=== PATIENT | male | born 1945 | race Caucasian/White ===

== ENCOUNTER → 2018-12-19 09:10 | Outpatient (CLI) | payer MEDICARE, OTHER, SELFPAY ==
--- NOTE | 2018-12-19 10:31 | PM.TREADMILL ---
Cardiac Stress Test Report Referral & Results Date Patient Seen: 12/19/18 Time Patient Seen: 10:31 Requesting provider: Cam Lechuga Indication: Atypical chest pain Rest ECG: Unremarkable Procedure Note: Today following both written and verbal informed consent, the patient was exercised according to a standard Carlos protocol. The patient exercised for a total of 10 minutes 4 seconds achieving a maximum heart rate of 156. Patient's maximum systolic blood pressure was 180. This was an estimated 12.8 MET's. There are no ST-T segment changes identified Occasional PAC and PVC were identified Functional week impairment is way off the scale I estimate at least-50% on the active scale or at least a exercise capacity equal to that of an active 53-year-old. Patient could continue on the treadmill for longer but it was obvious he met his targets and was well beyond norms. Impression: No evidence of ischemia. Amazing exercise capacity Occasional dysrhythmias above Please note: Actual ECG tracings can be found in the PACS system.
== END ==
PROVIDERS: Visit Provider Internal Medicine
DX: R07.89 Other chest pain (principal)
CPT/HCPCS: 93016; 93017; 93018

== ENCOUNTER → 2019-12-08 07:10 | Outpatient (CLI) | payer MEDICARE, OTHER, SELFPAY ==
[2019-12-08 08:26] LABS: Alanine Aminotransferase 32 IU/L (<50); Albumin 4.3 g/dL (3.5-5.0); Albumin Globulin Ratio 1.6 (1.0-2.8); Alkaline Phosphatase 87 U/L (38-126); Aspartate Aminotransferase 40 IU/L (17-59); Bilirubin Total 0.8 mg/dL (0.2-1.3); Blood Urea Nitrogen 18 mg/dL (9-20); Calcium 9.5 mg/dL (8.4-10.2); Carbon Dioxide 28 mmol/L (22-32); Chloride 104 mmol/L (98-107); Cholesterol 216 mg/dL (140-199); Estimated Glomerular Filt Rate > 60.0 mL/min (>60); Globulin 2.7 g/dL (1.7-4.1); Glucose 118 mg/dL (80-110); HDL Cholesterol 48 mg/dL (40-60); HEMOLYSIS < 15 (0-50); LDL Cholesterol Calculated 122 mg/dL (<100); Potassium 4.3 mmol/L (3.4-5.1); Sodium 138 mmol/L (137-145); Triglycerides 231 mg/dL (35-150)
== END ==
PROVIDERS: Referring Provider Internal Medicine; Visit Provider Internal Medicine
DX: E78.5 Hyperlipidemia, unspecified (principal)
CPT/HCPCS: 36415; 80053; 80061

== ENCOUNTER → 2021-03-09 11:04 | Outpatient (CLI) | payer MEDICARE, OTHER, SELFPAY | PROVIDERS: PCP Family Medicine; Referring Provider Family Medicine; Visit Provider Family Medicine | DX: N40.0 Benign prostatic hyperplasia without lower urinary tract symptoms (principal); Z12.5 Encounter for screening for malignant neoplasm of prostate | CPT/HCPCS: 36415; G0103 ==

== ENCOUNTER → 2021-08-28 10:16 | Outpatient (CLI) | payer MEDICARE, OTHER, SELFPAY ==
[2021-08-28 13:46] LABS: COVID19 -Nasal RAPID Negative (Negative)
== END ==
PROVIDERS: PCP Family Medicine; Visit Provider Surgery
DX: Z01.812 Encounter for preprocedural laboratory examination (principal); Z20.822 Contact with and (suspected) exposure to COVID-19
CPT/HCPCS: 87635; C9803

== ENCOUNTER 2021-08-29 09:41 | Day surgery (SDC) | payer MEDICARE, OTHER, SELFPAY ==
[2021-08-29] VITALS (7 sets, daily range): BP systolic 102–138; BP diastolic 63–80; PULSE 59–90; RESP 12–16; TEMP 36.6–36.9; O2SAT 94–97; BMI 28.5
[2021-08-29] MEDS: LACTATED RINGERS 1,000 ML 200 ML IV (09:59)
--- NOTE | 2021-08-29 10:37 | PM.PREOP ---
Pre-operative Note Interval Note History & Physical reviewed/Exam performed by Physician: Yes Changes to H&P: No
[2021-08-29] MEDS: fentaNYL 250 MCG/5 ML INJ 150 MCG IV (10:50)
[2021-08-29] MEDS: MIDAZOLAM 5 MG/5 ML VIAL IV (10:50)
--- NOTE | 2021-08-29 11:09 | PM.OP.COLON ---
Operative Date/Time/Diagnoses Date of procedure: 08/29/21 Time of procedure: 11:09 Pre-op diagnosis: Rectal bleeding Post-op diagnosis: same Procedure & Clinicians Study performed: Colonoscopy Same procedure as scheduled: Yes Indications: Rectal bleeding Surgeon: Brian John Procedure Notes Procedure in detail: Medications: Conscious sedation using 5mg IV midazolam and 150mcg IV of fentanyl The history and physical was performed/updated and the patient is ASA class is 2. The procedure was discussed in detail with the patient. Potential risks complications including infection, bleeding, missed diagnosis, perforation, need for surgery, and were explained. Their questions were answered and informed consent was obtained. Patient was brought to the procedure room and placed standard monitoring equipment. The patient's vital signs were monitored continuously throughout the entire procedure. Prior to starting time-out was performed. The patient was placed in the left lateral recumbent position. Procedural sedation was administered. Examination began with a thorough inspection of the perianal area there was no evidence of fissures, fistulae, external hemorrhoids or cutaneous malignancy. The colonoscopy scope was then placed into the anal canal and was advanced to the cecum, which was identified by the ileocecal valve, the appendiceal orifice and the confluence of the taenia. The scope was then slowly withdrawn examining colon thoroughly in all directions, irrigating it of any residual stool. FINDINGS 1. No masses or polyps 2. Sigmoid diverticulosis 3. Grade 1 internal hemorrhoids no active bleeding. No banding required The patient tolerated the procedure well. They will be discharged once criteria are met. The prep was of good/excellent quality. The withdrawl time was 6minutes. The sedation time was 16 minutes. Specimen(s): none sent Complications: none Post-procedure Recommendations: High fiber diet Disposition: same day surgery
--- NOTE | 2021-08-29 13:46 | SUR.PHASEII ---
Pt was done at 1225 but unable to get a hold of ride home. Called multiple times . Pt dressed and ready to go home VSS at 1225.
== END 2021-08-29 13:25 | disposition home or self-care (01) ==
PROVIDERS: PCP Family Medicine; Referring Provider Surgery; Visit Provider Surgery
PROC: 0DJD8ZZ Inspection of Lower Intestinal Tract, Via Natural or Artificial Opening Endoscopic (ICD-10-PCS; CPT 45378; principal; 2021-08-29 10:45)
DX: K64.0 First degree hemorrhoids (principal); K57.30 Diverticulosis of large intestine without perforation or abscess without bleeding
CPT/HCPCS: 45378; 99152; J2250; J3010

== ENCOUNTER → 2021-11-20 07:16 | Outpatient (CLI) | payer MEDICARE, OTHER, SELFPAY ==
[2021-11-20 08:29] LABS: Add Manual Diff / Slide Review NO; Basophils Absolute Auto 0 /uL (0-100); Basophils Percent Auto 0.7 % (0-2); Eosinophils Absolute Auto 300 /uL (0-450); Eosinophils Percent Auto 5.2 % (2-4); Hematocrit 44.6 % (41-53); Hemoglobin 15.4 g/dL (13.5-17.5); Lymphocytes Absolute Auto 1600 /uL (1100-4500); Lymphocytes Percent Auto 31.5 % (25-40); Mean Corpuscular HGB Conc 34.5 % (30-36); Mean Corpuscular Hemoglobin 31.4 PG (26-34); Monocytes Absolute Auto 500 /uL (0-900); Monocytes Percent Auto 9.8 % (3-14); Neutrophils Absolute Auto 2700 /uL (1500-7000); Neutrophils Percent Auto 52.8 % (50-75); Platelet Count 191 X10^3/uL (150-400); Red Cell Distribution Width 12.8 % (11.6-14.8); White Blood Cell Count 5.1 X10^3/uL (4.5-11.0)
[2021-11-20 10:08] LABS: Alanine Aminotransferase 33 IU/L (<50); Albumin 4.1 g/dL (3.5-5.0); Albumin Globulin Ratio 1.5 (1.0-2.8); Alkaline Phosphatase 88 U/L (38-126); Aspartate Aminotransferase 41 IU/L (17-59); BUN Creatinine Ratio 23.3 (6-22); Bilirubin Total 0.7 mg/dL (0.2-1.3); Blood Urea Nitrogen 21 mg/dL (9-20); Calcium 9.4 mg/dL (8.4-10.2); Carbon Dioxide 32 mmol/L (22-32); Chloride 103 mmol/L (98-107); Cholesterol 204 mg/dL (140-199); Estimated Glomerular Filt Rate > 60 mL/min (>60); Globulin 2.7 g/dL (1.7-4.1); Glucose 114 mg/dL (80-110); HDL Cholesterol 57 mg/dL (40-60); HEMOLYSIS < 15 (0-50); LDL Cholesterol Calculated 108 mg/dL (<100); Potassium 4.5 mmol/L (3.4-5.1); Sodium 138 mmol/L (137-145); Total Protein 6.8 g/dL (6.3-8.2); Triglycerides 196 mg/dL (35-150)
[2021-11-20 10:39] LABS: Prostate Specific Antigen Scrn 1.83 ng/mL (0.1-4.0)
== END ==
PROVIDERS: PCP Family Medicine; Referring Provider Family Medicine; Visit Provider Family Medicine
DX: K63.5 Polyp of colon (principal); Z00.00 Encounter for general adult medical examination without abnormal findings; Z12.5 Encounter for screening for malignant neoplasm of prostate; K64.8 Other hemorrhoids
CPT/HCPCS: 36415; 80053; 80061; 85025; G0103

== ENCOUNTER → 2022-03-13 09:10 | Outpatient (CLI) | payer MEDICARE, OTHER, SELFPAY ==
[2022-03-13 10:49] LABS: C-Reactive Protein Quant 0.5 mg/dL (<1.0)
== END ==
PROVIDERS: PCP Family Medicine; Referring Provider Family Medicine; Visit Provider Family Medicine
DX: G51.9 Disorder of facial nerve, unspecified (principal); Z13.29 Encounter for screening for other suspected endocrine disorder
CPT/HCPCS: 36415; 84443; 86140

== ENCOUNTER → 2023-07-09 09:11 | Outpatient (CLI) | payer MEDICARE, OTHER, SELFPAY ==
[2023-07-09 10:35] LABS: Appearance Urine UA CLEAR; Bilirubin Urine UA NEGATIVE (NEGATIVE); Color Urine UA YELLOW; Glucose Urine UA NEGATIVE (Negative); Ketones Urine UA NEGATIVE (NEGATIVE); Leukocyte Esterase Urine UA NEGATIVE (NEGATIVE); Nitrite Urine UA NEGATIVE (Negative); Occult Blood Urine UA 1+ (Negative); Protein Urine UA NEGATIVE (Negative); Urobilinogen Urine UA 0.2 E.U./dL (0.2)
[2023-07-09 10:59] LABS: RBC Urine 30-100/HPF (0-5/HPF); Urine Volume 10mL (spun); WBC Urine 0-1/HPF (0-5/HPF)
[2023-07-09 11:00] LABS: Bacteria Urine None Seen; Culture Indicated Urine Cult Not Indicated; Squamous Epithelial Cell Urine 0-1 /HPF (0-5/HPF)
[2023-07-09 11:13] LABS: Alanine Aminotransferase 40 IU/L (<50); Albumin 4.2 g/dL (3.5-5.0); Albumin Globulin Ratio 1.3 (1.0-2.8); Alkaline Phosphatase 95 U/L (38-126); Aspartate Aminotransferase 38 IU/L (17-59); Bilirubin Total 0.9 mg/dL (0.2-1.3); Blood Urea Nitrogen 17 mg/dL (9-20); Calcium 9.3 mg/dL (8.4-10.2); Carbon Dioxide 30 mmol/L (22-32); Chloride 104 mmol/L (98-107); Estimated Glomerular Filt Rate > 60 mL/min (>60); Globulin 3.3 g/dL (1.7-4.1); Glucose 129 mg/dL (80-110); HEMOLYSIS 20 (0-50); Potassium 4.4 mmol/L (3.4-5.1); Sodium 138 mmol/L (137-145); Total Protein 7.5 g/dL (6.3-8.2)
[2023-07-09 11:59] LABS: Prostate Specific Antigen Scrn 2.54 ng/mL (0.1-4.0)
== END ==
PROVIDERS: PCP Family Medicine; Referring Provider Family Medicine; Visit Provider Family Medicine
DX: Z12.5 Encounter for screening for malignant neoplasm of prostate (principal); R73.9 Hyperglycemia, unspecified; N40.0 Benign prostatic hyperplasia without lower urinary tract symptoms; N39.0 Urinary tract infection, site not specified
CPT/HCPCS: 36415; 80053; 81001; G0103

== ENCOUNTER → 2023-08-08 11:04 | Outpatient (CLI) | payer MEDICARE, OTHER, SELFPAY | PROVIDERS: PCP Family Medicine; Visit Provider Specialist | DX: N40.1 Benign prostatic hyperplasia with lower urinary tract symptoms (principal); R33.9 Retention of urine, unspecified | CPT/HCPCS: 51798; 81002; 87086 ==

== ENCOUNTER → 2023-08-21 07:29 | Outpatient (CLI) | payer MEDICARE, OTHER, SELFPAY ==
[2023-08-21 09:11] LABS: Prostate Specific Antigen 1.67 ng/mL (0.10-4.00)
== END ==
PROVIDERS: PCP Family Medicine; Referring Provider Specialist; Visit Provider Specialist
DX: N40.1 Benign prostatic hyperplasia with lower urinary tract symptoms (principal); R33.9 Retention of urine, unspecified; N40.0 Benign prostatic hyperplasia without lower urinary tract symptoms
CPT/HCPCS: 36415; 84153

== ENCOUNTER 2023-10-06 03:05 | Emergency (ER) | payer MEDICARE, OTHER, SELFPAY ==
[2023-10-06 03:15] VITALS: BP 163/76; PULSE 55; RESP 16; O2SAT 98; BMI 27.6
--- NOTE | 2023-10-06 03:15 | ED.GENADULT ---
HPI - General Adult General Chief complaint: Abdominal Pain Stated complaint: abdominal pain Time Seen by Provider: 10/06/23 03:08 Source: patient Mode of arrival: Ambulatory Limitations: no limitations History of Present Illness HPI narrative: 78-year-old male who has known history of prostate issues. Has had kidney stones in the past. Is here for evaluation of fairly sudden onset of lower abdominal discomfort. Is also complaining of some low back discomfort. It is hard for the patient to complete describe the symptoms. He states it is not necessarily worse with palpation or movement but position seems to make the symptoms better. Does not completely feel like prior history of stones. He does self cath because of enlarged prostate. Has a follow-up with his urologist 24 hours from now to have an operation for his prostate. Denies any fevers. Also gave himself an enema without any improvement or symptoms or bowel movement. Related Data Home Medications Medication Instructions Recorded Confirmed lactobacillus combination no.9 1 cap PO DAILY 05/13/20 10/03/23 [Adult 50 Plus Probiotic] zoipbhkz-tup-sdsav-vit K-lycop 1 tab PO DAILY 05/13/20 10/03/23 [Men's 50 Plus Multivitamin] cholecalciferol (vitamin D3) 1,000 tab PO .QD 08/15/20 10/03/23 krill oil 750 cap PO .QD 08/15/20 10/03/23 Previous Rx's Medication Instructions Recorded tamsulosin 0.4 mg capsule 0.8 mg (2 x 0.4 mg) PO DAILY #180 03/01/23 caps finasteride 5 mg tablet 5 mg PO DAILY #90 tabs 07/09/23 Allergies Allergy/AdvReac Type Severity Reaction Status Date / Time No Known Drug Allergies Allergy Verified 07/09/23 08:36 Review of Systems Review of Systems Narrative: See HPI Patient History Medical History BPH loc w urin obs/LUTS Urinary retention Medicare annual wellness visit, subsequent Travel advice encounter Well adult exam Kidney stones Internal hemorrhoids Preventative health care Hyperglycemia Preventative health care BPH (benign prostatic hyperplasia) Colon polyps (~2006) Skin cancer (~2008) Surgical History Anesthesia History of hernia repair (~2011) Social History (Reviewed 10/06/23 @ 05:52 by PRATIMA Patel marital status: number of children: 2 household members: spouse Smoking Status: Never smoker alcohol intake: former substance use type: does not use caffeine: Yes Type(s) of exercise: walking and other Smoking Status: Never smoker alcohol intake frequency: holidays/special occasions only Substance Use Type: does not use Exam Initial Vital Signs Initial Vital Signs: Vital Signs Pulse Rate 55 L 10/06/23 03:15 Respiratory Rate 16 10/06/23 03:15 Blood Pressure 163/76 H 10/06/23 03:15 Pulse Oximetry 98 10/06/23 03:15 Oxygen Delivery Method Room Air 10/06/23 03:15 Const General: cooperative, comfortable and No ill appearing HENMT Head: normal to inspection and normocephalic Resp Effort & Inspection: normal respiratory effort Cardio Rate: regular rate GI Inspection: normal to inspection and non-distended Palpation: soft, No firm, No guarding and No tender Back/Spine/Pelvis Back: No CVA tenderness Skin General: no rashes or lesions noted Neuro General: patient alert, patient awake, patient oriented x3 and moves all extremities Course Orders Ordered: ED Orders 10/06/23 03:00 Complete Blood Count AUTO DIFF Stat Comprehensive Metabolic Panel Stat Lipase Stat 10/06/23 03:19 CT abdomen pelvis w con Stat 10/06/23 06:37 Urine Culture Stat Urine Microscopic Stat Discontinued Medications Ketorolac Tromethamine (Ketorolac 30 Mg/Ml Vial) 30 mg IV NOW ONE Stop: 10/06/23 03:46 Last Admin: 10/06/23 03:55 Dose: 30 mg Documented By: NINA Ondansetron HCl (Ondansetron 4 Mg/2 Ml Inj) 4 mg IV NOW ONE Stop: 10/06/23 03:46 Last Admin: 10/06/23 03:54 Dose: 4 mg Documented By: NINA Vital Signs Vital signs: Vital Signs - 8 hr 10/06/23 03:15 Pulse Rate 55 L Respiratory Rate 16 Blood Pressure 163/76 H Pulse Oximetry 98 Oxygen Delivery Method Room Air Medical Decision Making Lab Data Lab results reviewed: Yes I reviewed the patient's lab results. 10/06/23 03:00 10/06/23 03:00 Labs: Lab Results 10/06/23 Range/Units 03:00 WBC 6.9 (4.5-11.0) X10^3/uL RBC 4.92 (4.5-5.9) X10^6/uL Hgb 15.2 (13.5-17.5) g/dL Hct 44.4 (41-53) % MCV 90.3 (80-100) fL MCH 31.0 (26-34) PG MCHC 34.3 (30-36) % RDW 13.0 (11.6-14.8) % Plt Count 199 (150-400) X10^3/uL Neut % (Auto) 51.5 (50-75) % Lymph % (Auto) 37.4 (25-40) % [place] % (Auto) 8.8 (3-14) % Eos % (Auto) 2.3 (2-4) % Baso % (Auto) 0.0 (0-2) % Neut # (Auto) 3500 (6666-3972) /uL Lymph # (Auto) 2600 (7938-9229) /uL [place] # (Auto) 600 (0-900) /uL Eos # (Auto) 200 (0-450) /uL Baso # (Auto) 0 (0-100) /uL Sodium 139 (137-145) mmol/L Potassium 4.2 (3.4-5.1) mmol/L Chloride 104 (98-107) mmol/L Carbon Dioxide 31 (22-32) mmol/L BUN 22 H (9-20) mg/dL Creatinine 0.91 (0.66-1.25) mg/dL Estimated GFR > 60 (>60) mL/min BUN/Creatinine Ratio 24.2 H (6-22) Glucose 166 H (80-110) mg/dL Calcium 9.3 (8.4-10.2) mg/dL Total Bilirubin 0.8 (0.2-1.3) mg/dL AST 32 (17-59) IU/L ALT 24 (<50) IU/L Alkaline Phosphatase 87 (38-126) U/L Total Protein 7.4 (6.3-8.2) g/dL Albumin 4.3 (3.5-5.0) g/dL Globulin 3.1 (1.7-4.1) g/dL Albumin/Globulin Ratio 1.4 (1.0-2.8) Lipase 194 (23-300) U/L Urine Dip Bedside Urine Glucose Negative Bedside Urine Bilirubin - Negative Bedside Urine Ketone - Negative Urine Specific [place] 1.020 Bedside Urine Occult Blood ++ Bedside Urine pH 5.5 Bedside Urine Protein - Negative Bedside Urine Urobilinogen - Negative Bedside Urine Nitrite + Positive Bedside Urine Leukocytes + 70 Esterase Point of care testing: Urine Dip Bedside Urine Glucose Negative Bedside Urine Bilirubin - Negative Bedside Urine Ketone - Negative Urine Specific [place] 1.020 Bedside Urine Occult Blood ++ Bedside Urine pH 5.5 Bedside Urine Protein - Negative Bedside Urine Urobilinogen - Negative Bedside Urine Nitrite + Positive Bedside Urine Leukocytes + [address] scan - abdomen/pelvis: Radiologist's Impression: Right kidney: 3 renal stones, 1 in the proximal aspect of the right UVJ in 2 other either in the distal most right UVJ or right posterior lateral aspect of the urinary bladder measuring up to 7 mm cause mild upstream hydronephrosis and minimal hydroureter. Left kidney: 7 mm stone either within the distal most aspect of the left UVJ with a left posterolateral urinary bladder causes [id number] upstream hydronephrosis and moderate hydroureter. There was associated decreased enhancement of the left relative to the right kidney and mild to moderate perinephric edema MDM Narrative Medical decision making narrative: After presentation highly suspicious of kidney stone. CT scan does show bilateral rather large kidney stones with hydro however his kidney function is unremarkable. He does self cath. He does have bacteria and red cells in his urinalysis but no other signs of an infection. He is now completely asymptomatic. He stated that when he was coming back from the CT scan his symptoms were greatly improved. Unsure whether or not that was the Toradol or potentially he has pass the stones into the bladder. He has an appointment tomorrow morning at 0900 hours with Urology in order to have resection of his prostate. I asked him to talk with the urologist and ask him to look at the CT scans that were performed today. Patient was given return precautions. He expressed understanding and agreement with plan. Discharge Plan Departure Patient Disposition: Home Clinical Impression: Bilateral ureteral calculi Instructions: DI for Kidney Stones Activity Restrictions/Additional Instructions: Recommend that you continue all of your medications as directed. Keep your scheduled appointment tomorrow morning with the urologist. I recommend that you tell him that you were seen here in the emergency department today and have him look at the CT scan that was performed here in the ER. If you start to develop fevers, pain that is not controlled or vomiting please return to the emergency department for further evaluation. Prescriptions: No Action krill oil 750 cap PO .QD Rx Instructions: 750mg po QD cholecalciferol (vitamin D3) 1,000 tab PO .QD Rx Instructions: 1,000 IU po QD tamsulosin 0.4 mg capsule 0.8 mg PO DAILY Qty: 180 3RF finasteride 5 mg tablet 5 mg PO DAILY Qty: 90 3RF kyolpnuk-lmc-bzcck-vit K-lycop 1 tab PO DAILY lactobacillus combination no.9 1 cap PO DAILY Referrals: Samuel Valdez DO [Primary Care Provider] - Stand Alone Forms: Patient Portal/API
--- NOTE | 2023-10-06 03:19 | DI.CT.S_ITS ---
PROCEDURE: CT ABDOMEN PELVIS W CON INDICATIONS: lower abd pain L flank pain TECHNIQUE: After the administration of intravenous contrast, axial sections acquired from the lung bases to the pubic symphysis. Coronal and sagittal reformats were performed. For radiation dose reduction, the following was used: automated exposure control, adjustment of mA and/or kV according to patient size. COMPARISON: None. FINDINGS: Image quality: Diagnostic. Lower Chest: No significant findings. ABDOMEN: Liver: No solid mass. Gallbladder: Cholelithiasis without evidence of acute cholecystitis Biliary ducts: No biliary dilation. Pancreas: No ductal dilation. Spleen: Size is within normal limits. Adrenal Glands: No adrenal nodules. Kidneys and Ureters: Numerous bilateral renal stones largest measuring 1.8 centimeters with average density of 1500 Hounsfield units. There is left-sided caliectasis and pelviectasis. There is left greater than right hydronephrosis. There is a 8 millimeter stone at the ureterovesicular junction. There is a 8 millimeter distal ureteral stone. There are several small 2-3 millimeter stones within the bladder. Left perinephric fat stranding. Stomach and Bowel: Normal colonic caliber, without significant wall thickening. Diverticulosis without evidence of acute diverticulitis. Normal appendix Peritoneum: No abnormal intraperitoneal fluid. No free air. Ventral Wall: No significant ventral hernia. Abdominal Nodes: No retroperitoneal or mesenteric adenopathy by size criteria. Vessels: Aorta and inferior vena cava are normal in size. PELVIS: Pelvic Organs: Slightly nodular prostate Bladder: No bladder wall thickening, accounting for underdistention. Pelvic Nodes: No enlarged lymph nodes. Miscellaneous: No inguinal hernias are seen. Bones: No aggressive osseous abnormality. IMPRESSION: Bilateral distal ureteral stones with hydronephrosis. Inflammatory changes with caliectasis of the left kidney concerning for complete obstruction. Additional stones within the bladder Numerous stones within the kidneys. Cholelithiasis without evidence of acute cholecystitis. Diverticulosis without evidence of acute diverticulitis. Dictated by: Cam Rossi M.D. on 10/06/2023 at 8:36 Approved by: Cam Rossi M.D. on 10/06/2023 at 8:42
[2023-10-06 03:23] LABS: Add Manual Diff / Slide Review NO; Basophils Absolute Auto 0 /uL (0-100); Eosinophils Absolute Auto 200 /uL (0-450); Eosinophils Percent Auto 2.3 % (2-4); Hematocrit 44.4 % (41-53); Hemoglobin 15.2 g/dL (13.5-17.5); Lymphocytes Absolute Auto 2600 /uL (1100-4500); Lymphocytes Percent Auto 37.4 % (25-40); Mean Corpuscular HGB Conc 34.3 % (30-36); Mean Corpuscular Volume 90.3 fL (80-100); Monocytes Absolute Auto 600 /uL (0-900); Monocytes Percent Auto 8.8 % (3-14); Neutrophils Absolute Auto 3500 /uL (1500-7000); Neutrophils Percent Auto 51.5 % (50-75); Platelet Count 199 X10^3/uL (150-400); Red Blood Cell Count 4.92 X10^6/uL (4.5-5.9); White Blood Cell Count 6.9 X10^3/uL (4.5-11.0)
[2023-10-06 03:37] LABS: Alanine Aminotransferase 24 IU/L (<50); Albumin 4.3 g/dL (3.5-5.0); Albumin Globulin Ratio 1.4 (1.0-2.8); Alkaline Phosphatase 87 U/L (38-126); Aspartate Aminotransferase 32 IU/L (17-59); BUN Creatinine Ratio 24.2 (6-22); Bilirubin Total 0.8 mg/dL (0.2-1.3); Blood Urea Nitrogen 22 mg/dL (9-20); Calcium 9.3 mg/dL (8.4-10.2); Carbon Dioxide 31 mmol/L (22-32); Chloride 104 mmol/L (98-107); Estimated Glomerular Filt Rate > 60 mL/min (>60); Globulin 3.1 g/dL (1.7-4.1); Glucose 166 mg/dL (80-110); HEMOLYSIS < 15 (0-50); Lipase 194 U/L (23-300); Potassium 4.2 mmol/L (3.4-5.1); Sodium 139 mmol/L (137-145); Total Protein 7.4 g/dL (6.3-8.2)
[2023-10-06] MEDS: ONDANSETRON 4 MG/2 ML INJ IV (03:54)
[2023-10-06] MEDS: KETOROLAC 30 MG/ML VIAL IV (03:55)
--- NOTE | 2023-10-06 06:32 | PC.NURSE ---
Pt able to straight cath himself for a urine sample. 300mL out.
[2023-10-06 06:54] VITALS: BP 136/71; PULSE 74; RESP 16; TEMP 37.1; O2SAT 95
[2023-10-06 06:56] LABS: Urine Volume 10mL (spun)
[2023-10-06 06:57] LABS: Bacteria Urine Moderate (10-30); Culture Indicated Urine Cult Not Indicated; RBC Urine 0-1/HPF (0-5/HPF); Squamous Epithelial Cell Urine 0-1 /HPF (0-5/HPF); WBC Urine 1-5/HPF (0-5/HPF)
== END 2023-10-06 06:57 | disposition home or self-care (01) ==
PROVIDERS: Emergency Provider Emergency Medicine; PCP Family Medicine
DX: N20.0 Calculus of kidney (principal); Z87.442 Personal history of urinary calculi
CPT/HCPCS: 36415; 51798; 74177; 80053; 81003; 81015; 83690; 85025; 87077; 87086; 87186; 96374; 96375; 99284; J1885; J2405; Q9967

== ENCOUNTER 2023-10-07 08:53 | Day surgery (SDC) | payer MEDICARE, OTHER, SELFPAY ==
[2023-09-03 08:07] VITALS: BMI 27.6
[2023-10-07] VITALS (13 sets, daily range): BP systolic 90–117; BP diastolic 44–63; PULSE 65–81; RESP 6–17; TEMP 36.8–37.9; O2SAT 92–97; BMI 27.6
--- NOTE | 2023-10-07 | PATH_ITS ---
[facility] Accession Number: [id number] No. of containers..01 Tissue . 01 Material submitted: . prostate - PROSTATE CHIPS . 01 Diagnosis: A. PROSTATE CHIPS, EXCISIONAL BIOPSY: Benign prostatic stroma with benign epithelium and mild acute inflammation. Background of blood with scattered clusters of bacterial colonization in association with fibrin. MRV 10/14/2023 1316 Local . 01 Electronically signed: . Carlee Croft MD, Pathologist NPI- [id number] . 01 Gross description: . Received in formalin with two identifiers and prostate chips, are multiple ochoa rubbery tissue fragments admixed with hemorrhagic material aggregating to 2.9 x 2.7 x 1.3 cm. Two ochoa roughened stones are identified ranging from 0.5 to 0.7 cm in greatest dimension. All soft tissue fragments and hemorrhagic material are submitted in A1-A2. ([id number]) /MRV 10/09/2023 1834 Local . 01 Pathologist provided ICD-10: N40.1 . 01 CPT . 420273 Specimen Comment: A courtesy copy of this report has been sent to [phone] Performed at: [address] [facility] [place] [facility]– [place], [place], [place] [id number] MD Adal Arredondo MD Phone: [phone]
[2023-10-07] MEDS: LACTATED RINGERS 1,000 ML 21 ML IV ×2 (09:31→13:20)
[2023-10-07] MEDS: ACETAMINOPHEN IV 1,000 MG/100 ML VIAL 400 MG IV ×2 (09:33→10:38)
[2023-10-07 09:34] LABS: Hemoglobin 14.6 g/dL (13.5-17.5)
--- NOTE | 2023-10-07 09:42 | P.OP.PRE_ITS ---
Pre-operative Note Interval Note History & Physical reviewed/Exam performed by Physician: Yes Changes to H&P: Yes H&P completed within 30 days and has changed as indicated here:: The patient presented to [facility] ED 10/06/2023 for evaluation and management of symptomatic left ureteral calculus. He was discharged. Denies ongoing colic.
[2023-10-07] MEDS: AMPICILLIN/SULBACTAM 3 GM 3 GM in SODIUM CHLORIDE 0.9% 100 ML IV (10:23)
[2023-10-07] MEDS: CEFAZOLIN 2 GM/100 ML PREMIX 100 ML IV (10:25)
[2023-10-07] MEDS: GENTAMICIN IV (10:30)
[2023-10-07] MEDS: SODIUM CHLORIDE 0.9% IV (10:30)
--- NOTE | 2023-10-07 11:04 | SUR.OPER ---
Lithotomy on padded OR bed, head on pillow, right arm secured on padded arm board at <90 degrees abduction, left arm padded and tucked in. Legs secured in padded yellow fins stirrups.
[2023-10-07] MEDS: TRANEXAMIC ACID 1,000 MG in SODIUM CHLORIDE 0.9% 100 ML 200 MG IV ×2 (11:17→11:45)
--- NOTE | 2023-10-07 12:05 | PM.OP.1 ---
Operative Date/Time/Diagnoses Date of procedure: 10/07/23 Time of procedure: 11:40 Pre-op diagnosis: 1. Urinary retention. 2. 8 mm obstructing left distal ureteral calculus. Post-op diagnosis: same Procedure & Clinicians Procedure: 1. Cystoscopy/left ureteral stone manipulation without removal. 2. Cystoscopy/placement left ureteral stent (7 [place] by 22-32 cm multi-length). 3. Cystoscopy/Aquablation. 4. Cystoscopy/Transurethral resection of prostate. 5. Transrectal ultrasonography-diagnostic and guidance. Same procedure as scheduled: Yes Indications: 1. 8 mm obstructing left distal ureteral calculus. 2. Urinary retention and multiple failed voiding trials. Surgeon: Sherry Marinelli Click Yes if Unassisted: Yes Anesthesia Type: General Operative Notes Findings: 1. Urethra-normal caliber without annular stricture or lesion. 2. External sphincter-coapted normal urothelium and vascularity. 3. Prostate-3.5+ cm length with markedly elevated median bar and moderately obstructing lateral lobe. 4. Bladder-severe trabeculation in some early cellule formation. Right ureteral orifices with normally positioned. The right ureteral orifice was positioned more laterally. There was evidence of edema and erythema consistent with known stone within the distal portion of the ureter. Closure Type: not applicable Specimen(s): other (TUR chips) Applied: catheter (Twenty-two [place] three-way hematuria catheter.) and other (Seven [place] by 22-32 cm multi-length stent.) Estimated Blood Loss (mL): 5 Blood products transfused: none Procedure in detail: The patient was positioned in supine was administered general anesthesia. He was then repositioned in semilithotomy in the lower abdomen, genitalia, groin were then prepped and draped in sterile fashion. The 22 [place] panendoscope was then advanced lower urinary tract with the findings as described above. A 0.35 hybrid guidewire selected and advanced in the left collecting system under direct and fluoroscopic guidance. A 7 [place] by 22-32 cm multilink stent was then selected and this was advanced over the hybrid guidewire again under direct and fluoroscopic guidance. An excellent coil was visualized fluoroscopically in the upper left collecting system. NO RETRIEVAL LINE WAS LEFT ATTACHED. Library guidewire was removed with the distal tip of the stent line just within the proximal prostate fossa. An excellent distal coil was then visualized. The panendoscope was then removed. Next the transrectal ultrasound probe was positioned and adjusted appropriately in preparation for Aquablation treatment planning. Next the cystoscope and hand piece were then passed and lower urinary tract under direct visualization. The tip was calibrated. The scope was aligned parallel and in line with the TRUS probe. Next, alternating between sagittal and transverse imaging nodule calibration and positioning at the 3, and 9 positions in the transverse plane as well as adjusting proximal stent of treatment at the margin of prostate and bladder neck in the sagittal plane. Now in the transverse plane depth of treatment parameters were created by placing cursors appropriately just inside the prostate capsule laterally and posteriorly. Now in the sagittal plane anatomic landmarks were identified in the proximal stent of treatment, the bladder neck, the mid prostate, and veru were then identified and boundary cursors with positioned at these locations. First pass Aquablation was then commenced under ultrasonographic monitoring guidance. Before a 2nd pass was conducted anatomic landmarks were re-evaluated in the sagittal plane and adjustments of the boundaries for made appropriately. A 2nd pass was then conducted. Now, the treatment hand piece was removed and the resectoscope was advanced in lower urinary tract under direct visualization. The bladder contents were then irrigated clear pink the Ellik evacuator. The resectoscope was then fitted with the resecting loop and focal neck bladder cautery and resection of devascularized treated tissue was conducted from the 3 to the 9 position. TUR of this devitalized tissue was extended more proximally and hemostasis attained given the patient's history of jenaro urinary retention. Additionally, a limited amount of anterior tissue was resected to optimize a caliber of the channel, again, given patient's history of jenaro urinary retention. The resectoscope was then advanced within the bladder lumen and again the Ellik evacuator was utilized to remove any residual tissue fragments or clots. A final inspection revealed no evidence of remaining clot, tissue or stone within the bladder lumen. Hemostasis was excellent. The bladder is then left partially filled and the resectoscope was removed. A [address] catheter was then positioned in the bladder over a malleable catheter guide. The balloon was inflated to 30 cc. The catheter was then hand irrigated clear. It was then placed to 0.9 normal saline continuous bladder irrigation. The patient was repositioned in supine and the catheter was secured to the thigh without traction. The patient was then awakened, transferred to [facility], and transferred recovery in stable condition. Complications: none Post-operative Condition: stable Disposition: PACU Plan for aftercare: 1. Observe CBI outflow quality. Disposition will be discharge later this day or admit as outpatient with bed.
[2024-01-01 13:33] VITALS: BMI 27.6
== END 2023-10-07 15:40 | disposition home or self-care (01) ==
LOC: OR 08:53 → AC 08:54
PROVIDERS: PCP Family Medicine; Referring Provider Specialist; Visit Provider Specialist
PROC: 0VT08ZZ Resection of Prostate, Via Natural or Artificial Opening Endoscopic (ICD-10-PCS; CPT 52597; principal; 2023-10-07 10:15)
PROC: (CPT 0421T; 2023-10-07 10:15)
DX: N40.1 Benign prostatic hyperplasia with lower urinary tract symptoms (principal); R33.9 Retention of urine, unspecified; N20.1 Calculus of ureter
CPT/HCPCS: 0421T; 52330; 52332; 36415; 76000; 85014; 85018; 86850; 86900; 86901; C2596; J0136; J0295; J0690; J1100; J1170; J2250; J2405; J2704; J3010; J3490

== ENCOUNTER → 2023-10-13 10:45 | Outpatient (CLI) | payer MEDICARE, OTHER, SELFPAY ==
--- NOTE | 2023-10-13 10:48 | DI.CT.S_ITS ---
PROCEDURE: CT KIDNEY URETER BLADDER (KUB) INDICATIONS: Bilateral ureteral calculi TECHNIQUE: Axial sections were acquired from the lung bases to the pubic symphysis. Coronal and sagittal reformats were performed. For radiation dose reduction, the following was used: automated exposure control, adjustment of mA and/or kV according to patient size. COMPARISON: [facility], CT, CT ABDOMEN PELVIS W CON, 10/06/2023, 3:30. FINDINGS: Image quality: Diagnostic. Lower Chest: No significant findings. URINARY: Right Kidney: No hydronephrosis. Right interpolar nonobstructive nephrolith measuring 9 mm (2/38). Two right lower pole nonobstructive nephroliths, the largest of which measures 7 mm (2/44). Right posterior interpolar simple cyst. Additional anterior interpolar simple cyst. Right Ureter: Distal hydroureter. Left Kidney: Interval placement of a left double-J ureteral stent with proximal pigtail in the interpolar calyx. Multiple nonobstructive nephroliths, the largest of which in the lower pole measures 18 x 15 mm with Hounsfield unit 1491. Additional cluster of interpolar nephroliths, the largest of which measures 6 mm (2/41). Multiple anechoic simple cysts. Left Ureter: Distal pigtail of the ureteral stent is malpositioned in the distal ureter. Distal hydroureter with a nonobstructive nephrolith measuring 3 mm (2/78). Bladder: Mild bladder wall thickness, accounting for underdistention. No stones. ABDOMEN: Liver: No contour-deforming solid mass. Gallbladder: Cholelithiasis without acute cholecystitis. Biliary ducts: No biliary dilation. Pancreas: No ductal dilation. Spleen: Size is within normal limits. Adrenal Glands: No adrenal nodules. Stomach and Bowel: Normal colonic caliber, without significant wall thickening. Normal appendix (2/58). Colonic diverticulosis, without diverticulitis. Peritoneum: No abnormal intraperitoneal fluid. No free air. Ventral Wall: Tiny fat containing umbilical hernia. Abdominal Nodes: No enlarged retroperitoneal or mesenteric lymph nodes. Vessels: Aorta and inferior vena cava are normal in size. PELVIS: Pelvic Organs: Dystrophic calcifications. Pelvic Nodes: No enlarged lymph nodes by size criteria. A few prominent, but not enlarged, bilateral inguinal lymph nodes which are nonspecific and likely reactive.. Miscellaneous: No inguinal hernias are seen. Bones: No acute fractures. No aggressive appearing lytic or blastic osseous lesions. Mild multilevel degenerative changes of the spine. IMPRESSION: 1. Interval placement of a left double-J ureteral stent which is malpositioned with distal pigtail in the distal ureter. Left-sided hydronephrosis has resolved. 2. Multiple bilateral nonobstructive nephroliths, the largest of which measures 9 mm on the right and 18 x 15 mm on the left. 3. Bilateral distal hydroureter with a nonobstructive nephrolith in the left distal ureter measuring 3 mm. Previously seen right ureteral stones are no longer seen. 4. No bladder stones. Mild bladder wall thickness, accounting for underdistention, which may reflect of infectious or inflammatory etiology. 5. Colonic diverticulosis, without diverticulitis. 6. Cholelithiasis without acute cholecystitis. Dictated by: Minesh Us M.D. on 10/13/2023 at 19:31 Approved by: Minesh Us M.D. on 10/13/2023 at 19:57
== END ==
LOC: CT 10:47
PROVIDERS: PCP Family Medicine; Referring Provider Specialist; Visit Provider Specialist
DX: T83.122A Displacement of indwelling ureteral stent, initial encounter (principal); N20.0 Calculus of kidney; N28.1 Cyst of kidney, acquired; K80.20 Calculus of gallbladder without cholecystitis without obstruction; K57.90 Diverticulosis of intestine, part unspecified, without perforation or abscess without bleeding; N13.4 Hydroureter
CPT/HCPCS: 74176

== ENCOUNTER → 2023-10-23 08:55 | Outpatient (CLI) | payer MEDICARE, OTHER, SELFPAY ==
[2023-10-23 09:36] LABS: Appearance Urine UA CLOUDY; Bacteria Urine Few (2-10); Color Urine UA RED; RBC Urine >100/HPF (0-5/HPF); Urine Volume 10mL (spun); WBC Urine 5-10/HPF (0-5/HPF)
[2023-10-23 09:37] LABS: Culture Indicated Urine Specimen Cultured; Squamous Epithelial Cell Urine 1-5 /HPF (0-5/HPF)
== END ==
PROVIDERS: PCP Family Medicine; Visit Provider Specialist
DX: N40.1 Benign prostatic hyperplasia with lower urinary tract symptoms (principal); N20.0 Calculus of kidney; R33.9 Retention of urine, unspecified; Z96.0 Presence of urogenital implants
CPT/HCPCS: 81001; 87077; 87086; 99215

== ENCOUNTER → 2023-11-20 08:33 | Outpatient (CLI) | payer MEDICARE, OTHER, SELFPAY | PROVIDERS: PCP Family Medicine; Visit Provider Specialist | DX: N40.1 Benign prostatic hyperplasia with lower urinary tract symptoms (principal); R39.9 Unspecified symptoms and signs involving the genitourinary system; N20.0 Calculus of kidney; Z96.0 Presence of urogenital implants | CPT/HCPCS: 51798; 81002; 87077; 87086; 87186; 99214 ==

== ENCOUNTER → 2023-12-10 13:46 | Outpatient (CLI) | payer MEDICARE, OTHER, SELFPAY | PROVIDERS: PCP Family Medicine; Visit Provider Urology | DX: N40.1 Benign prostatic hyperplasia with lower urinary tract symptoms (principal) | CPT/HCPCS: 87086 ==

== ENCOUNTER 2024-01-03 06:42 | Day surgery (SDC) | payer MEDICARE, OTHER, SELFPAY ==
--- NOTE | 2024-01-03 | DI.RAD.S_ITS ---
PROCEDURE: XR ABDOMEN 1V INDICATIONS: LT STENT PLACEMENT TECHNIQUE: 3 intra-operative images acquired by the Urology service. COMPARISON: None. FINDINGS: Intraoperative fluoroscopic images shows prominence of left renal collecting system and left proximal to mid ureters. A left-sided ureteral stent is placed. IMPRESSION: Fluoro guidance was provided intraoperatively for left-sided ureteral stent placement. Dictated by: Dickson Hartley M.D. on 01/03/2024 at 11:26 Approved by: Dickson Hartley M.D. on 01/03/2024 at 11:27
[2024-01-03 07:18] VITALS: BP 141/73; PULSE 67; RESP 17; TEMP 36.3; O2SAT 95; BMI 26.6
[2024-01-03] MEDS: LACTATED RINGERS 1,000 ML 21 ML IV (07:27)
--- NOTE | 2024-01-03 07:40 | PM.PREOP ---
Pre-operative Note COVID-19 COVID-19 status: Not tested Interval Note History & Physical reviewed/Exam performed by Physician: Yes Changes to H&P: No
[2024-01-03] MEDS: CEFAZOLIN 2 GM/100 ML PREMIX 100 ML IV (08:03)
--- NOTE | 2024-01-03 08:07 | SUR.OPER ---
Lithotomy on padded OR bed, head on pillow, arms secured on padded arm boards at <90 degrees abduction. Legs secured in padded yellow fins stirrups.
[2024-01-03 09:25] VITALS: BP 133/69; PULSE 70; RESP 13; O2SAT 94
[2024-01-03 09:30] VITALS: BP 109/63; PULSE 66; RESP 16; O2SAT 94
[2024-01-03 09:34] VITALS: BP 111/63; PULSE 65; RESP 13; O2SAT 94
[2024-01-03 09:35] VITALS: BP 104/55; PULSE 71; RESP 14; TEMP 36.2; O2SAT 95
--- NOTE | 2024-01-03 09:45 | PM.OP.1 ---
Procedure & Clinicians Procedure: Cystoscopy Left retrograde ureteropyelogram Left ureteroscopy, laser lithotripsy Left ureteral stent exchange Intraoperative interpretation of fluoroscopic images, total time < 1 hour, all images saved to PACS Same procedure as scheduled: Yes Indications: 78 y/o M w/ a large left distal ureteral stone and a large left lower pole calyx s/p a cystoscopy and left ureteral stent placement at the same time as his Aquablation procedure a few months ago who is in need of definitive stone management. 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 Large left distal ureterolith, moderate sized stone in left mid pole calyx, large and impacted stone in left lower pole calyx that occupies the entire calyx. Closure Type: not applicable Specimen(s): other Prosthetic devices, grafts, tissues, transplants, or devices: Left ureteral stone Estimated Blood Loss (mL): 3 Blood products transfused: none Procedure in detail: Patient was identified in the preoperative holding area and consent confirmed. He was then brought to the operating room where general anesthesia was induced.? He was placed in the low lithotomy position. He was then prepped and draped in the usual sterile fashion. A surgical timeout was conducted and all were in agreement. Access to the bladder was obtained via a 30 degree cystoscope.? Complete cystoscopy was then performed and no concerning bladder masses or lesions were appreciated.? A defect within the prostatic urethra consistent with a prior Aquablation procedure was noted. Bilateral ureteral orifices were easily identified and noted to be orthotopic in nature.? The cystoscope was then removed and the semirigid ureteroscope was advanced through the urethra and into the left distal ureter where the previously placed left ureteral stent was noted to have its distal curl within the distal ureter. The stent was then externalized using the stone basket. A 0.035 sensor tip ureteral guidewire was then advanced through the stent and into the left renal pelvis. The semirigid ureteroscope was then readvanced into the left distal ureter where a large stone consistent with CT findings was noted. A 200 micron laser fiber was then utilized to perform laser lithotripsy.? All stone fragments >1mm in size were removed via the stone basket and sent for chemical analysis.? The semirigid ureteroscope was then removed and a 12/14Fr ureteral access sheath was advanced over the guidewire and into the left proximal ureter and the obturator and ureteral guidewire were removed. The flexible ureteroscope was then advanced through the sheath and into the left renal pelvis. Complete pyeloscopy was performed and a moderate sized stone was noted within the left midpole calyx and a large and impacted stone was noted within a left lower pole calyx. The midpole calyx stone was addressed first using laser lithotripsy, all stone fragments > 1mm in greatest diameter were removed via the stone basket. The lower pole stone was then addressed with the laser. After lasering for more than 30 minutes, visibility became poor and the stone was still noted to be rather large and impacted within the left lower pole calyx. The decision was made to terminate the procedure at this point. The ureteral guidewire was advanced through the ureteroscope and into the left renal pelvis. The ureter was then directly visualized upon removal of the ureteroscope and access sheath and noted to be stone free.? A 5Fr ureteral catheter was advanced over the guidewire and into the left proximal ureter and the guidewire was removed. A left retrograde ureteropyelogram was performed which noted no contrast extravasation. The ureteral guidewire was readvanced through the ureteral catheter and into the left renal pelvis and the ureteral catheter was removed. The cystoscope was then backloaded over the guidewire and advanced into the bladder. A 6Fr multi-length JJ ureteral stent without strings was then advanced over the ureteral guidewire and into the left renal pelvis.? Upon removal of the guidewire, a good curl was noted in the left renal pelvis upon fluoroscopy and visually within the bladder.? The bladder was then drained.? Anesthesia was reversed, he was extubated in the OR and transferred to the PACU in stable condition for recovery. Complications: none Post-operative Condition: stable Disposition: PACU Plan for aftercare: Discharge home from PACU. Will have him return to clinic the week of 19 January for a discussion of left ureteral stent removal vs repeat left ureteroscopy with laser lithotripsy. Will discuss in greater detail that the large left lower pole calyx is very impacted and difficult to access and may never cause him any issues. Issues that would lead to stone removal would be recurrent urinary tract infections. Otherwise, could consider cystoscopy with stent removal at his next appointment.
== END 2024-01-03 09:55 | disposition home or self-care (01) ==
PROVIDERS: PCP Family Medicine; Referring Provider Urology; Visit Provider Urology
PROC: (CPT 52356; principal; 2024-01-03 07:45)
DX: N20.2 Calculus of kidney with calculus of ureter (principal)
CPT/HCPCS: 52356; 74018; 76000; 82365; 82962; J0690; J2405; J2704; J3010

== ENCOUNTER → 2024-01-15 15:12 | Outpatient (CLI) | payer MEDICARE, OTHER, SELFPAY | PROVIDERS: PCP Family Medicine; Visit Provider Urology | DX: N40.1 Benign prostatic hyperplasia with lower urinary tract symptoms (principal) | CPT/HCPCS: 87077; 87086; 87186 ==

== ENCOUNTER → 2024-01-21 09:50 | Outpatient (CLI) | payer MEDICARE, OTHER, SELFPAY | PROVIDERS: PCP Family Medicine; Visit Provider Urology | DX: N40.1 Benign prostatic hyperplasia with lower urinary tract symptoms (principal) | CPT/HCPCS: 87086 ==

== ENCOUNTER → 2024-04-28 08:06 | Outpatient (CLI) | payer MEDICARE, OTHER, SELFPAY | PROVIDERS: PCP Family Medicine; Visit Provider Urology | DX: R33.9 Retention of urine, unspecified (principal) | CPT/HCPCS: 51798; 81002; 87077; 87086; 87186; 99213 ==

== ENCOUNTER 2024-07-19 16:22 | Inpatient (IN) | payer MEDICARE, OTHER, SELFPAY ==
[2024-07-19] VITALS (17 sets, daily range): BP systolic 120–182; BP diastolic 60–94; PULSE 69–111; RESP 16–18; TEMP 36.3; O2SAT 91–97
--- NOTE | 2024-07-19 16:37 | ED.GENADULT ---
HPI - General Adult <Abigail Workman MD - Last Filed: 07/29/24 07:54> General Chief complaint: Abdominal Pain Stated complaint: lower abd px Time Seen by Provider: 07/19/24 16:25 Source: patient Mode of arrival: Ambulatory History of Present Illness HPI narrative: 79-year-old gentleman with a left known large staghorn renal calculi followed by Urology comes in today with 2 hours of acute right groin pain. He notes that he had an inguinal hernia repair with mesh approximately 20 years ago. He has been gardening much of the day. When the pain started he ended up giving himself an enema with good results as well as self catheterization his bladder again with good results, pain continued and he comes in for further evaluation. He feels that he is having more air and belching to the point of almost vomiting. Not reporting fever or chills Related Data Home Medications Medication Instructions Recorded Confirmed lactobacillus combination no.9 1 cap PO DAILY 05/13/20 07/28/24 [Adult 50 Plus Probiotic] cholecalciferol (vitamin D3) 1,000 tab PO .QD 08/15/20 07/28/24 Previous Rx's Medication Instructions Recorded cefdinir 300 mg capsule 300 mg PO BID #10 caps 07/26/24 levofloxacin 500 mg tablet 500 mg PO DAILY #7 tabs 07/28/24 Allergies Allergy/AdvReac Type Severity Reaction Status Date / Time No Known Drug Allergies Allergy Verified 07/28/24 08:15 Review of Systems <Abigail Workman MD - Last Filed: 07/29/24 07:54> Review of Systems Narrative: Pertinent positive and negative findings as per HPI Patient History <Abigail Workman MD - Last Filed: 07/29/24 07:54> Medical History Retained ureteral stent Bilateral nephrolithiasis BPH loc w urin obs/LUTS Urinary retention Medicare annual wellness visit, subsequent Travel advice encounter Well adult exam Kidney stones Internal hemorrhoids Preventative health care Hyperglycemia Preventative health care BPH (benign prostatic hyperplasia) Colon polyps (~2006) Skin cancer (~2008) Surgical History H/O cystoscopy (10/07/23) History of prostate surgery (10/07/23) Anesthesia History of hernia repair (~2011) Social History marital status: number of children: 2 household members: spouse Smoking Status: Never smoker alcohol intake: former substance use type: does not use caffeine: Yes Type(s) of exercise: walking and other Smoking Status: Never smoker alcohol intake frequency: 0-2 drinks per day Exam <Abigail Workman MD - Last Filed: 07/29/24 07:54> Initial Vital Signs Initial Vital Signs: Vital Signs Temperature 97.4 F L 07/19/24 16:25 Pulse Rate 87 07/19/24 16:25 Respiratory Rate 18 07/19/24 16:25 Blood Pressure 182/94 H 07/19/24 16:25 Pulse Oximetry 97 07/19/24 16:25 Oxygen Delivery Method Room Air 07/19/24 16:25 General: Healthy appearing, in no acute distress. Able to give a complete and coherent history. Well-nourished well-developed HEENT: Moist mucous membranes, normal sclera with reactive pupils, Respiratory: Full and symmetrical air movement Cardiac: Regular rate and rhythm no murmurs no bruits Abdomen: Soft, nontender, no rebound or guarding, question of right-sided flank pain, certainly not severe Groin: Minor tenderness over the inguinal canal without obvious hernia. Right testicle is tender without mass or erythema Skin: Warm and dry, no rashes Neurologic: Grossly neurologically intact with no obvious asymmetries or abnormalities Extremities: No trauma, well perfused Psych: Cooperative, appropriate insight and affect <Paola Gonzalez DO - Last Filed: 07/20/24 04:08> Initial Vital Signs Initial Vital Signs: Vital Signs Temperature 97.4 F L 07/19/24 16:25 Pulse Rate 87 07/19/24 16:25 Respiratory Rate 18 07/19/24 16:25 Blood Pressure 182/94 H 07/19/24 16:25 Pulse Oximetry 97 07/19/24 16:25 Oxygen Delivery Method Room Air 07/19/24 16:25 Course <Abigail Workman MD - Last Filed: 07/29/24 07:54> Orders Ordered: Discontinued Medications Acetaminophen (Acetaminophen 650 Mg Supp) 650 mg [place] Q6HR PRN PRN Reason: Fever/Mild Pain (1-3) Last Admin: 07/20/24 05:58 Dose: 650 mg Documented By: SARAH Acetaminophen (Acetaminophen 325 Mg Tablet) 650 mg PO Q6H PRN PRN Reason: Fever/Mild Pain (1-3) Last Admin: 07/25/24 07:01 Dose: 650 mg Documented By: Admin: 07/24/24 08:29 Dose: 650 mg Documented By: Admin: 07/22/24 22:07 Dose: 650 mg Documented By: Admin: 07/20/24 16:53 Dose: 650 mg Documented By: TOMER Fentanyl (Fentanyl 100 Mcg/2 Ml Inj) 0 mcg IV Q5MIN PRN PRN Reason: Pain, Severe (7-10) Heparin Sodium (Porcine) (Heparin Flush (Cl/Picc/Mid-Line) 50 Unit/5 Ml Syringe) 50 unit IV BID [place] Last Admin: 07/26/24 09:19 Dose: Not Given Documented By: Admin: 07/25/24 20:57 Dose: 50 unit Documented By: Admin: 07/25/24 08:06 Dose: 50 unit Documented By: Admin: 07/24/24 21:21 Dose: 50 unit Documented By: Admin: 07/24/24 08:29 Dose: 50 unit Documented By: Admin: 07/23/24 21:09 Dose: Not Given Documented By: SHERRI Hydromorphone HCl (Hydromorphone 0.5 Mg Inj) 0.5 mg IV NOW ONE Stop: 07/20/24 00:09 Last Admin: 07/20/24 00:18 Dose: 0.5 mg Documented By: HARSH Hydromorphone HCl (Hydromorphone 0.5 Mg Inj) 1 mg IV Q2H PRN PRN Reason: Pain, Severe (7-10) Hydromorphone HCl (Hydromorphone 0.5 Mg Inj) 0.5 mg IV Q2H PRN PRN Reason: Pain, Moderate (4-6) Hydromorphone HCl (Hydromorphone 1 Mg Inj) 0 mg IV Q5MIN PRN PRN Reason: Pain, Mild (1-3) Sodium Chloride (Normal Saline 0.9%) 1,000 mls @ 1,000 mls/hr IV BOLUS ONE Stop: 07/19/24 19:36 Last Infusion: 07/19/24 19:49 Dose: Infused Documented By: Admin: 07/19/24 18:53 Dose: 1,000 mls/hr Documented By: ES Ceftriaxone Sodium 1,000 mg/ (Sodium Chloride) 100 mls @ 200 mls/hr IV NOW ONE Stop: 07/19/24 20:05 Last Infusion: 07/19/24 21:15 Dose: Infused Documented By: Admin: 07/19/24 20:38 Dose: 200 mls/hr Documented By: AI Sodium Chloride (Normal Saline 0.9%) 1,000 mls @ 100 mls/hr IV CONT [place] Last Admin: 07/22/24 02:41 Dose: 100 mls/hr Documented By: Infusion: 07/22/24 02:29 Dose: Infused Documented By: Admin: 07/21/24 16:29 Dose: 100 mls/hr Documented By: Infusion: 07/21/24 16:29 Dose: Infused Documented By: Infusion: 07/21/24 11:21 Dose: 100 mls/hr Documented By: Admin: 07/21/24 09:41 Dose: 200 mls/hr Documented By: Infusion: 07/21/24 09:15 Dose: Infused Documented By: Admin: 07/21/24 04:15 Dose: 200 mls/hr Documented By: Infusion: 07/21/24 04:03 Dose: Infused Documented By: Admin: 07/20/24 23:03 Dose: 200 mls/hr Documented By: Infusion: 07/20/24 22:30 Dose: Infused Documented By: Admin: 07/20/24 17:30 Dose: 200 mls/hr Documented By: Infusion: 07/20/24 17:30 Dose: Infused Documented By: Infusion: 07/20/24 12:33 Dose: 200 mls/hr Documented By: Admin: 07/20/24 12:32 Dose: 100 mls/hr Documented By: Infusion: 07/20/24 12:32 Dose: Infused Documented By: Admin: 07/20/24 04:21 Dose: 100 mls/hr Documented By: SARAH Cefepime HCl 1 gm/ Sodium (Chloride) 100 mls @ 200 mls/hr IV Q12H [place] Last Infusion: 07/21/24 07:13 Dose: Infused Documented By: Admin: 07/21/24 06:07 Dose: 200 mls/hr Documented By: Infusion: 07/20/24 18:15 Dose: Infused Documented By: Admin: 07/20/24 17:30 Dose: 200 mls/hr Documented By: Infusion: 07/20/24 06:55 Dose: Infused Documented By: Admin: 07/20/24 06:11 Dose: 200 mls/hr Documented By: SARAH Lactated Ringer's (Lactated Ringers) 1,000 mls @ 42 mls/hr IV NOW ONE Stop: 07/21/24 07:53 Last Infusion: 07/20/24 12:32 Dose: Infused Documented By: Admin: 07/20/24 11:13 Dose: 999 mls/hr Documented By: Infusion: 07/20/24 11:13 Dose: Infused Documented By: Admin: 07/20/24 09:57 Dose: 42 mls/hr Documented By: Infusion: 07/20/24 09:57 Dose: Infused Documented By: Admin: 07/20/24 09:34 Dose: 999 mls/hr Documented By: Infusion: 07/20/24 09:33 Dose: Infused Documented By: Admin: 07/20/24 08:06 Dose: 42 mls/hr Documented By: LUCERO Albumin Human (Alburx) 12.5 gm in 250 mls @ 250 mls/hr IV NOW ONE Stop: 07/20/24 10:31 Last Infusion: 07/20/24 09:56 Dose: Infused Documented By: Admin: 07/20/24 09:38 Dose: 250 mls/hr Documented By: LUCERO NOREPINEPHRINE BITARTRATE/D5W (Levophed) 4 mg in 250 mls @ 36.188 mls/hr IV TITRATE [place]; Protocol Last Titration: 07/22/24 13:17 Dose: 0 mcg/kg/min, 0 mls/hr Documented By: Titration: 07/22/24 13:08 Dose: 0.01 mcg/kg/min, 3.619 mls/hr Documented By: Titration: 07/22/24 11:22 Dose: 0.02 mcg/kg/min, 7.238 mls/hr Documented By: Titration: 07/22/24 09:15 Dose: 0.01 mcg/kg/min, 3.619 mls/hr Documented By: Titration: 07/22/24 06:31 Dose: 0.02 mcg/kg/min, 7.238 mls/hr Documented By: Titration: 07/22/24 05:00 Dose: 0 mcg/kg/min, 0 mls/hr Documented By: Titration: 07/22/24 03:04 Dose: 0.02 mcg/kg/min, 7.238 mls/hr Documented By: Admin: 07/21/24 23:33 Dose: 0.025 mcg/kg/min, 9.047 mls/hr Documented By: Titration: 07/21/24 23:33 Dose: Infused Documented By: Titration: 07/21/24 22:06 Dose: 0.025 mcg/kg/min, 9.047 mls/hr Documented By: Titration: 07/21/24 20:17 Dose: 0.02 mcg/kg/min, 7.238 mls/hr Documented By: Titration: 07/21/24 17:45 Dose: 0.03 mcg/kg/min, 10.856 mls/hr Documented By: Titration: 07/21/24 13:31 Dose: 0.05 mcg/kg/min, 18.094 mls/hr Documented By: Titration: 07/21/24 12:46 Dose: 0.03 mcg/kg/min, 10.856 mls/hr Documented By: Titration: 07/21/24 12:10 Dose: 0.02 mcg/kg/min, 7.238 mls/hr Documented By: Titration: 07/21/24 10:30 Dose: 0.03 mcg/kg/min, 10.856 mls/hr Documented By: Titration: 07/21/24 09:41 Dose: 0.05 mcg/kg/min, 18.094 mls/hr Documented By: Admin: 07/21/24 08:25 Dose: 0.075 mcg/kg/min, 27.141 mls/hr Documented By: Titration: 07/21/24 04:16 Dose: Infused Documented By: Titration: 07/21/24 00:30 Dose: 0.075 mcg/kg/min, 27.141 mls/hr Documented By: Admin: 07/20/24 20:18 Dose: 0.1 mcg/kg/min, 36.188 mls/hr Documented By: Titration: 07/20/24 20:18 Dose: Infused Documented By: Titration: 07/20/24 14:56 Dose: 0.1 mcg/kg/min, 36.188 mls/hr Documented By: Titration: 07/20/24 14:46 Dose: 0.09 mcg/kg/min, 32.569 mls/hr Documented By: Titration: 07/20/24 14:10 Dose: 0.07 mcg/kg/min, 25.331 mls/hr Documented By: Admin: 07/20/24 14:04 Dose: 0.05 mcg/kg/min, 18.094 mls/hr Documented By: TOMER Norepinephrine Bitartrate 4 mg (/ Dextrose) 254 mls @ 36.18 mls/hr IV TITRATE [place] Norepinephrine Bitartrate 4 mg (/ Dextrose) 250 mls @ 35.61 mls/hr IV TITRATE [place] Last Infusion: 07/21/24 09:42 Dose: Infused Documented By: Infusion: 07/21/24 08:25 Dose: 0 mls/hr Documented By: Admin: 07/21/24 02:51 Dose: 27.1 mls/hr Documented By: KENDAL Ceftriaxone Sodium 2,000 mg/ (Sodium Chloride) 100 mls @ 200 mls/hr IV Q24H [place] Last Infusion: 07/25/24 19:42 Dose: Infused Documented By: Admin: 07/25/24 17:40 Dose: 200 mls/hr Documented By: Infusion: 07/24/24 19:54 Dose: Infused Documented By: Admin: 07/24/24 16:40 Dose: 200 mls/hr Documented By: Infusion: 07/23/24 19:40 Dose: Infused Documented By: Admin: 07/23/24 18:18 Dose: 200 mls/hr Documented By: Infusion: 07/22/24 19:05 Dose: Infused Documented By: Admin: 07/22/24 17:55 Dose: 200 mls/hr Documented By: Infusion: 07/21/24 18:08 Dose: Infused Documented By: Admin: 07/21/24 16:39 Dose: 200 mls/hr Documented By: TOMER Iopamidol (Iopamidol 30 Ml Vial) 30 ml INJ NOW ONE Stop: 07/20/24 08:34 Last Admin: 07/20/24 08:33 Dose: 20 ml Documented By: SARAHI Ketorolac Tromethamine (Ketorolac 30 Mg/Ml Vial) 15 mg IV NOW ONE Stop: 07/19/24 18:38 Last Admin: 07/19/24 18:52 Dose: 15 mg Documented By: JACKLYN Meperidine HCl (Meperidine 50 Mg/Ml Inj) 12.5 mg IV PACUNOW PRN PRN Reason: Mild pain or shivering Metoclopramide HCl (Metoclopramide 10 Mg/2 Ml Inj) 10 mg IV NOW ONE Stop: 07/19/24 21:52 Last Admin: 07/19/24 22:00 Dose: 10 mg Documented By: JACKLYN Naloxone HCl (Naloxone 0.4 Mg/Ml Vial) 0.2 mg IV Q2MIN PRN PRN Reason: Opiate Reversal Naloxone HCl (Naloxone 0.4 Mg/Ml Vial) 0.2 mg IV Q2MIN PRN PRN Reason: Opiate Reversal Non-Formulary Medication (Lactobacillus Combination No.9) 1 cap PO DAILY [place] Ondansetron HCl (Ondansetron 4 Mg Odt) 4 mg SL NOW ONE Stop: 07/19/24 16:52 Last Admin: 07/19/24 17:05 Dose: 4 mg Documented By: EMANI Ondansetron HCl (Ondansetron 4 Mg/2 Ml Inj) 4 mg IV NOW ONE Stop: 07/19/24 18:38 Last Admin: 07/19/24 18:52 Dose: 4 mg Documented By: JACKLYN Ondansetron HCl (Ondansetron 4 Mg/2 Ml Inj) 4 mg IV Q4HR PRN PRN Reason: Nausea And Vomiting Last Admin: 07/21/24 08:25 Dose: 4 mg Documented By: Admin: 07/20/24 04:18 Dose: 4 mg Documented By: SARAH Ondansetron HCl (Ondansetron 4 Mg/2 Ml Inj) 4 mg IV NOW PRN PRN Reason: Nausea And Vomiting Oxycodone HCl (Oxycodone Ir 5 Mg Tablet) 5 mg PO PACUNOW PRN PRN Reason: Mild or moderate pain Sodium Chloride (Sodium Chloride 0.9% Flush) 10 ml IV PRN PRN PRN Reason: Flush Last Admin: 07/25/24 19:42 Dose: 10 ml Documented By: MIRIAM Vitamin D (Cholecalciferol (Vitamin D3) 1,000 Unit Tablet) 1,000 unit PO DAILY [place] Last Admin: 07/26/24 09:19 Dose: 1,000 unit Documented By: Admin: 07/25/24 08:06 Dose: 1,000 unit Documented By: Admin: 07/24/24 08:29 Dose: 1,000 unit Documented By: Admin: 07/23/24 10:17 Dose: 1,000 unit Documented By: Admin: 07/22/24 09:00 Dose: 1,000 unit Documented By: Admin: 07/21/24 08:24 Dose: Not Given Documented By: TOMER Vital Signs Vital signs: Vital Signs - 8 hr 07/19/24 20:32 07/19/24 21:00 07/19/24 21:30 Pulse Rate 104 H 105 H 102 H Respiratory Rate Blood Pressure Pulse Oximetry 94 94 94 Oxygen Delivery Method 07/19/24 21:46 07/19/24 21:46 07/19/24 22:00 Pulse Rate 107 H Respiratory Rate 16 Blood Pressure 142/69 H 130/60 Pulse Oximetry 94 Oxygen Delivery Method Room Air 07/19/24 22:00 07/19/24 23:26 07/19/24 23:27 Pulse Rate 110 H 111 H Respiratory Rate Blood Pressure 120/64 Pulse Oximetry 94 92 Oxygen Delivery Method 07/19/24 23:27 07/19/24 23:30 07/20/24 00:00 Pulse Rate 107 H 106 H 99 H Respiratory Rate Blood Pressure Pulse Oximetry 91 91 91 Oxygen Delivery Method <Paola Gonzalez DO - Last Filed: 07/20/24 04:08> Orders Ordered: Discontinued Medications Acetaminophen (Acetaminophen 650 Mg Supp) 650 mg [place] Q6HR PRN PRN Reason: Fever/Mild Pain (1-3) Last Admin: 07/20/24 05:58 Dose: 650 mg Documented By: SARAH Acetaminophen (Acetaminophen 325 Mg Tablet) 650 mg PO Q6H PRN PRN Reason: Fever/Mild Pain (1-3) Last Admin: 07/25/24 07:01 Dose: 650 mg Documented By: Admin: 07/24/24 08:29 Dose: 650 mg Documented By: Admin: 07/22/24 22:07 Dose: 650 mg Documented By: Admin: 07/20/24 16:53 Dose: 650 mg Documented By: TOMER Fentanyl (Fentanyl 100 Mcg/2 Ml Inj) 0 mcg IV Q5MIN PRN PRN Reason: Pain, Severe (7-10) Heparin Sodium (Porcine) (Heparin Flush (Cl/Picc/Mid-Line) 50 Unit/5 Ml Syringe) 50 unit IV BID [place] Last Admin: 07/26/24 09:19 Dose: Not Given Documented By: Admin: 07/25/24 20:57 Dose: 50 unit Documented By: Admin: 07/25/24 08:06 Dose: 50 unit Documented By: Admin: 07/24/24 21:21 Dose: 50 unit Documented By: Admin: 07/24/24 08:29 Dose: 50 unit Documented By: Admin: 07/23/24 21:09 Dose: Not Given Documented By: SHERRI Hydromorphone HCl (Hydromorphone 0.5 Mg Inj) 0.5 mg IV NOW ONE Stop: 07/20/24 00:09 Last Admin: 07/20/24 00:18 Dose: 0.5 mg Documented By: HARSH Hydromorphone HCl (Hydromorphone 0.5 Mg Inj) 1 mg IV Q2H PRN PRN Reason: Pain, Severe (7-10) Hydromorphone HCl (Hydromorphone 0.5 Mg Inj) 0.5 mg IV Q2H PRN PRN Reason: Pain, Moderate (4-6) Hydromorphone HCl (Hydromorphone 1 Mg Inj) 0 mg IV Q5MIN PRN PRN Reason: Pain, Mild (1-3) Sodium Chloride (Normal Saline 0.9%) 1,000 mls @ 1,000 mls/hr IV BOLUS ONE Stop: 07/19/24 19:36 Last Infusion: 07/19/24 19:49 Dose: Infused Documented By: Admin: 07/19/24 18:53 Dose: 1,000 mls/hr Documented By: ES Ceftriaxone Sodium 1,000 mg/ (Sodium Chloride) 100 mls @ 200 mls/hr IV NOW ONE Stop: 07/19/24 20:05 Last Infusion: 07/19/24 21:15 Dose: Infused Documented By: Admin: 07/19/24 20:38 Dose: 200 mls/hr Documented By: AI Sodium Chloride (Normal Saline 0.9%) 1,000 mls @ 100 mls/hr IV CONT [place] Last Admin: 07/22/24 02:41 Dose: 100 mls/hr Documented By: Infusion: 07/22/24 02:29 Dose: Infused Documented By: Admin: 07/21/24 16:29 Dose: 100 mls/hr Documented By: Infusion: 07/21/24 16:29 Dose: Infused Documented By: Infusion: 07/21/24 11:21 Dose: 100 mls/hr Documented By: Admin: 07/21/24 09:41 Dose: 200 mls/hr Documented By: Infusion: 07/21/24 09:15 Dose: Infused Documented By: Admin: 07/21/24 04:15 Dose: 200 mls/hr Documented By: Infusion: 07/21/24 04:03 Dose: Infused Documented By: Admin: 07/20/24 23:03 Dose: 200 mls/hr Documented By: Infusion: 07/20/24 22:30 Dose: Infused Documented By: Admin: 07/20/24 17:30 Dose: 200 mls/hr Documented By: Infusion: 07/20/24 17:30 Dose: Infused Documented By: Infusion: 07/20/24 12:33 Dose: 200 mls/hr Documented By: Admin: 07/20/24 12:32 Dose: 100 mls/hr Documented By: Infusion: 07/20/24 12:32 Dose: Infused Documented By: Admin: 07/20/24 04:21 Dose: 100 mls/hr Documented By: SARAH Cefepime HCl 1 gm/ Sodium (Chloride) 100 mls @ 200 mls/hr IV Q12H [place] Last Infusion: 07/21/24 07:13 Dose: Infused Documented By: Admin: 07/21/24 06:07 Dose: 200 mls/hr Documented By: Infusion: 07/20/24 18:15 Dose: Infused Documented By: Admin: 07/20/24 17:30 Dose: 200 mls/hr Documented By: Infusion: 07/20/24 06:55 Dose: Infused Documented By: Admin: 07/20/24 06:11 Dose: 200 mls/hr Documented By: SARAH Lactated Ringer's (Lactated Ringers) 1,000 mls @ 42 mls/hr IV NOW ONE Stop: 07/21/24 07:53 Last Infusion: 07/20/24 12:32 Dose: Infused Documented By: Admin: 07/20/24 11:13 Dose: 999 mls/hr Documented By: Infusion: 07/20/24 11:13 Dose: Infused Documented By: Admin: 07/20/24 09:57 Dose: 42 mls/hr Documented By: Infusion: 07/20/24 09:57 Dose: Infused Documented By: Admin: 07/20/24 09:34 Dose: 999 mls/hr Documented By: Infusion: 07/20/24 09:33 Dose: Infused Documented By: Admin: 07/20/24 08:06 Dose: 42 mls/hr Documented By: LUCERO Albumin Human (Alburx) 12.5 gm in 250 mls @ 250 mls/hr IV NOW ONE Stop: 07/20/24 10:31 Last Infusion: 07/20/24 09:56 Dose: Infused Documented By: Admin: 07/20/24 09:38 Dose: 250 mls/hr Documented By: LUCERO NOREPINEPHRINE BITARTRATE/D5W (Levophed) 4 mg in 250 mls @ 36.188 mls/hr IV TITRATE [place]; Protocol Last Titration: 07/22/24 13:17 Dose: 0 mcg/kg/min, 0 mls/hr Documented By: Titration: 07/22/24 13:08 Dose: 0.01 mcg/kg/min, 3.619 mls/hr Documented By: Titration: 07/22/24 11:22 Dose: 0.02 mcg/kg/min, 7.238 mls/hr Documented By: Titration: 07/22/24 09:15 Dose: 0.01 mcg/kg/min, 3.619 mls/hr Documented By: Titration: 07/22/24 06:31 Dose: 0.02 mcg/kg/min, 7.238 mls/hr Documented By: Titration: 07/22/24 05:00 Dose: 0 mcg/kg/min, 0 mls/hr Documented By: Titration: 07/22/24 03:04 Dose: 0.02 mcg/kg/min, 7.238 mls/hr Documented By: Admin: 07/21/24 23:33 Dose: 0.025 mcg/kg/min, 9.047 mls/hr Documented By: Titration: 07/21/24 23:33 Dose: Infused Documented By: Titration: 07/21/24 22:06 Dose: 0.025 mcg/kg/min, 9.047 mls/hr Documented By: Titration: 07/21/24 20:17 Dose: 0.02 mcg/kg/min, 7.238 mls/hr Documented By: Titration: 07/21/24 17:45 Dose: 0.03 mcg/kg/min, 10.856 mls/hr Documented By: Titration: 07/21/24 13:31 Dose: 0.05 mcg/kg/min, 18.094 mls/hr Documented By: Titration: 07/21/24 12:46 Dose: 0.03 mcg/kg/min, 10.856 mls/hr Documented By: Titration: 07/21/24 12:10 Dose: 0.02 mcg/kg/min, 7.238 mls/hr Documented By: Titration: 07/21/24 10:30 Dose: 0.03 mcg/kg/min, 10.856 mls/hr Documented By: Titration: 07/21/24 09:41 Dose: 0.05 mcg/kg/min, 18.094 mls/hr Documented By: Admin: 07/21/24 08:25 Dose: 0.075 mcg/kg/min, 27.141 mls/hr Documented By: Titration: 07/21/24 04:16 Dose: Infused Documented By: Titration: 07/21/24 00:30 Dose: 0.075 mcg/kg/min, 27.141 mls/hr Documented By: Admin: 07/20/24 20:18 Dose: 0.1 mcg/kg/min, 36.188 mls/hr Documented By: Titration: 07/20/24 20:18 Dose: Infused Documented By: Titration: 07/20/24 14:56 Dose: 0.1 mcg/kg/min, 36.188 mls/hr Documented By: Titration: 07/20/24 14:46 Dose: 0.09 mcg/kg/min, 32.569 mls/hr Documented By: Titration: 07/20/24 14:10 Dose: 0.07 mcg/kg/min, 25.331 mls/hr Documented By: Admin: 07/20/24 14:04 Dose: 0.05 mcg/kg/min, 18.094 mls/hr Documented By: TOMER Norepinephrine Bitartrate 4 mg (/ Dextrose) 254 mls @ 36.18 mls/hr IV TITRATE [place] Norepinephrine Bitartrate 4 mg (/ Dextrose) 250 mls @ 35.61 mls/hr IV TITRATE [place] Last Infusion: 07/21/24 09:42 Dose: Infused Documented By: Infusion: 07/21/24 08:25 Dose: 0 mls/hr Documented By: Admin: 07/21/24 02:51 Dose: 27.1 mls/hr Documented By: KENDAL Ceftriaxone Sodium 2,000 mg/ (Sodium Chloride) 100 mls @ 200 mls/hr IV Q24H [place] Last Infusion: 07/25/24 19:42 Dose: Infused Documented By: Admin: 07/25/24 17:40 Dose: 200 mls/hr Documented By: Infusion: 07/24/24 19:54 Dose: Infused Documented By: Admin: 07/24/24 16:40 Dose: 200 mls/hr Documented By: Infusion: 07/23/24 19:40 Dose: Infused Documented By: Admin: 07/23/24 18:18 Dose: 200 mls/hr Documented By: Infusion: 07/22/24 19:05 Dose: Infused Documented By: Admin: 07/22/24 17:55 Dose: 200 mls/hr Documented By: Infusion: 07/21/24 18:08 Dose: Infused Documented By: Admin: 07/21/24 16:39 Dose: 200 mls/hr Documented By: TOMER Iopamidol (Iopamidol 30 Ml Vial) 30 ml INJ NOW ONE Stop: 07/20/24 08:34 Last Admin: 07/20/24 08:33 Dose: 20 ml Documented By: BB Ketorolac Tromethamine (Ketorolac 30 Mg/Ml Vial) 15 mg IV NOW ONE Stop: 07/19/24 18:38 Last Admin: 07/19/24 18:52 Dose: 15 mg Documented By: ES Meperidine HCl (Meperidine 50 Mg/Ml Inj) 12.5 mg IV PACUNOW PRN PRN Reason: Mild pain or shivering Metoclopramide HCl (Metoclopramide 10 Mg/2 Ml Inj) 10 mg IV NOW ONE Stop: 07/19/24 21:52 Last Admin: 07/19/24 22:00 Dose: 10 mg Documented By: ES Naloxone HCl (Naloxone 0.4 Mg/Ml Vial) 0.2 mg IV Q2MIN PRN PRN Reason: Opiate Reversal Naloxone HCl (Naloxone 0.4 Mg/Ml Vial) 0.2 mg IV Q2MIN PRN PRN Reason: Opiate Reversal Non-Formulary Medication (Lactobacillus Combination No.9) 1 cap PO DAILY [place] Ondansetron HCl (Ondansetron 4 Mg Odt) 4 mg SL NOW ONE Stop: 07/19/24 16:52 Last Admin: 07/19/24 17:05 Dose: 4 mg Documented By: EMANI Ondansetron HCl (Ondansetron 4 Mg/2 Ml Inj) 4 mg IV NOW ONE Stop: 07/19/24 18:38 Last Admin: 07/19/24 18:52 Dose: 4 mg Documented By: ES Ondansetron HCl (Ondansetron 4 Mg/2 Ml Inj) 4 mg IV Q4HR PRN PRN Reason: Nausea And Vomiting Last Admin: 07/21/24 08:25 Dose: 4 mg Documented By: Admin: 07/20/24 04:18 Dose: 4 mg Documented By: SARAH Ondansetron HCl (Ondansetron 4 Mg/2 Ml Inj) 4 mg IV NOW PRN PRN Reason: Nausea And Vomiting Oxycodone HCl (Oxycodone Ir 5 Mg Tablet) 5 mg PO PACUNOW PRN PRN Reason: Mild or moderate pain Sodium Chloride (Sodium Chloride 0.9% Flush) 10 ml IV PRN PRN PRN Reason: Flush Last Admin: 07/25/24 19:42 Dose: 10 ml Documented By: MIRIAM Vitamin D (Cholecalciferol (Vitamin D3) 1,000 Unit Tablet) 1,000 unit PO DAILY [facility] Last Admin: 07/26/24 09:19 Dose: 1,000 unit Documented By: Admin: 07/25/24 08:06 Dose: 1,000 unit Documented By: Admin: 07/24/24 08:29 Dose: 1,000 unit Documented By: Admin: 07/23/24 10:17 Dose: 1,000 unit Documented By: Admin: 07/22/24 09:00 Dose: 1,000 unit Documented By: Admin: 07/21/24 08:24 Dose: Not Given Documented By: TOMER Vital Signs Vital signs: Vital Signs - 8 hr 07/19/24 20:32 07/19/24 21:00 07/19/24 21:30 Pulse Rate 104 H 105 H 102 H Respiratory Rate Blood Pressure Pulse Oximetry 94 94 94 Oxygen Delivery Method 07/19/24 21:46 07/19/24 21:46 07/19/24 22:00 Pulse Rate 107 H Respiratory Rate 16 Blood Pressure 142/69 H 130/60 Pulse Oximetry 94 Oxygen Delivery Method Room Air 07/19/24 22:00 07/19/24 23:26 07/19/24 23:27 Pulse Rate 110 H 111 H Respiratory Rate Blood Pressure 120/64 Pulse Oximetry 94 92 Oxygen Delivery Method 07/19/24 23:27 07/19/24 23:30 07/20/24 00:00 Pulse Rate 107 H 106 H 99 H Respiratory Rate Blood Pressure Pulse Oximetry 91 91 91 Oxygen Delivery Method Medical Decision Making <Abigail Workman MD - Last Filed: 07/29/24 07:54> Lab Data 07/26/24 04:51 07/26/24 04:51 Labs: Lab Results 07/19/24 07/19/24 07/19/24 Range/Units 18:48 19:50 20:15 WBC 13.1 H (4.5-11.0) X10^3/uL RBC 5.10 (4.5-5.9) X10^6/uL Hgb 15.4 (13.5-17.5) g/dL Hct 46.1 (41-53) % MCV 90.5 (80-100) fL MCH 30.3 (26-34) PG MCHC 33.4 (30-36) % RDW 13.1 (11.6-14.8) % Plt Count 211 (150-400) X10^3/uL Neut % (Auto) 88.3 H (50-75) % Lymph % (Auto) 4.9 L (25-40) % [place] % (Auto) 6.7 (3-14) % Eos % (Auto) 0.0 L (2-4) % Baso % (Auto) 0.1 (0-2) % Neut # (Auto) 91690 H (1491-3991) /uL Lymph # (Auto) 600 L (2838-7856) /uL [place] # (Auto) 900 (0-900) /uL Eos # (Auto) 0 (0-450) /uL Baso # (Auto) 0 (0-100) /uL Sodium 137 (137-145) mmol/L Potassium 4.6 (3.4-5.1) mmol/L Chloride 102 (98-107) mmol/L Carbon Dioxide 27 (22-32) mmol/L BUN 23 H (9-20) mg/dL Creatinine 1.24 (0.66-1.25) mg/dL Estimated GFR 60 (>60) mL/min BUN/Creatinine Ratio 18.5 (6-22) Glucose 151 H (80-110) mg/dL Lactate 1.7 (0.7-2.1) mmol/L Calcium 9.4 (8.4-10.2) mg/dL Urine RBC 0-1/hpf D (0-5/HPF) Urine WBC 30-100/hpf H (0-5/HPF) Ur Squamous Epith Cells 0-1 /hpf (0-5/HPF) Urine Bacteria Many (>30) H (None) Ur Culture Indicated? Specimen cultured Vol Urine Centrifuged 10ml (spun) A.calcoaceticus-baumannii cmplx PCR (Not Detect) Bacteroides fragilis (Not Detect) Malathi albicans (PCR) (Not Detect) Malathi auris (PCR) (Not Detect) C. glabrata (PCR) (Not Detect) C. krusei (PCR) (Not Detect) C. parapsilosis (PCR) (Not Detect) C. tropicalis (PCR) (Not Detect) C. neoform/gattii (PCR) (Not Detect) Enterobacterales (PCR) (Not Detect) E. cloacae complex PCR (Not Detect) Enterococc faecalis PCR (Not Detect) Enterococc faecium PCR (Not Detect) E. coli (PCR) (Not Detect) H. influenzae (PCR) (Not Detect) Klebsiella aerogenes (PCR) (Not Detect) Klebsiella oxytoca PCR (Not Detect) Klebsiella pneumoniae (Not Detect) List. monocytogenes PCR (Not Detect) N. meningitidis (PCR) (Not Detect) Proteus species (PCR) (Not Detect) Salmonella spp. (PCR) (Not Detect) Serratia marcescens PCR (Not Detect) Staphylococcus sp PCR (Not Detect) Staph aureus (PCR) (Not Detect) mecA/C & MREJ Resist Gene (Not Detect) mecA/C-Methicil Resis Gene (Not Detect) mcr-1 Colistin Res Gene PCR (Not Detect) Staph epidermidis (PCR) (Not Detect) Staph lugdunensis PCR (Not Detect) S. maltophilia (PCR) (Not Detect) Streptococcus sp PCR (Not Detect) Group A Strep (PCR) (Not Detect) Strep agalactiae (PCR) (Not Detect) Strep pneumoniae (PCR) (Not Detect) P. aeruginosa (PCR) (Not Detect) Calvin/B-Vanco Res Genes (Not Detect) blaIMP Car res Gene PCR (Not Detect) KPC-Carbap Res Gene PCR (Not Detect) blaNDM Car Res Gene PCR (Not Detect) OXA-48 Carbapenem Resis Gene (PCR) (Not Detect) blaVIM Car Res Gene PCR (Not Detect) CTX-M Gene Resistance (PCR) (Not Detect) 07/20/24 07/20/24 07/20/24 Range/Units 04:37 06:30 09:15 WBC 6.0 D (4.5-11.0) X10^3/uL RBC 4.69 (4.5-5.9) X10^6/uL Hgb 14.3 (13.5-17.5) g/dL Hct 42.6 (41-53) % MCV 90.9 (80-100) fL MCH 30.5 (26-34) PG MCHC 33.6 (30-36) % RDW 13.2 (11.6-14.8) % Plt Count 122 L (150-400) X10^3/uL Neut % (Auto) 95.7 H (50-75) % Lymph % (Auto) 3.0 L (25-40) % [place] % (Auto) 1.1 L (3-14) % Eos % (Auto) 0.1 L (2-4) % Baso % (Auto) 0.1 (0-2) % Neut # (Auto) 5700 (7446-7105) /uL Lymph # (Auto) 200 L (3594-2040) /uL [place] # (Auto) 100 (0-900) /uL Eos # (Auto) 0 (0-450) /uL Baso # (Auto) 0 (0-100) /uL Sodium 137 (137-145) mmol/L Potassium 4.3 (3.4-5.1) mmol/L Chloride 103 (98-107) mmol/L Carbon Dioxide 19 L (22-32) mmol/L BUN 29 H (9-20) mg/dL Creatinine 2.09 H (0.66-1.25) mg/dL Estimated GFR 32 L (>60) mL/min BUN/Creatinine Ratio 13.9 (6-22) Glucose 154 H (80-110) mg/dL Lactate 7.5 H* 5.0 H* (0.7-2.1) mmol/L Calcium 8.6 (8.4-10.2) mg/dL Urine RBC (0-5/HPF) Urine WBC (0-5/HPF) Ur Squamous Epith Cells (0-5/HPF) Urine Bacteria (None) Ur Culture Indicated? Vol Urine Centrifuged A.calcoaceticus-baumannii cmplx PCR Not detected (Not Detect) Bacteroides fragilis Not detected (Not Detect) Malathi albicans (PCR) Not detected (Not Detect) Malathi auris (PCR) Not detected (Not Detect) C. glabrata (PCR) Not detected (Not Detect) C. krusei (PCR) Not detected (Not Detect) C. parapsilosis (PCR) Not detected (Not Detect) C. tropicalis (PCR) Not detected (Not Detect) C. neoform/gattii (PCR) Not detected (Not Detect) Enterobacterales (PCR) Detected (Not Detect) E. cloacae complex PCR Not detected (Not Detect) Enterococc faecalis PCR Not detected (Not Detect) Enterococc faecium PCR Not detected (Not Detect) E. coli (PCR) Not detected (Not Detect) H. influenzae (PCR) Not detected (Not Detect) Klebsiella aerogenes (PCR) Not detected (Not Detect) Klebsiella oxytoca PCR Not detected (Not Detect) Klebsiella pneumoniae Detected (Not Detect) List. monocytogenes PCR Not detected (Not Detect) N. meningitidis (PCR) Not detected (Not Detect) Proteus species (PCR) Not detected (Not Detect) Salmonella spp. (PCR) Not detected (Not Detect) Serratia marcescens PCR Not detected (Not Detect) Staphylococcus sp PCR Not detected (Not Detect) Staph aureus (PCR) Not detected (Not Detect) mecA/C & MREJ Resist Gene Not applicable (Not Detect) mecA/C-Methicil Resis Gene Not applicable (Not Detect) mcr-1 Colistin Res Gene PCR Not detected (Not Detect) Staph epidermidis (PCR) Not detected (Not Detect) Staph lugdunensis PCR Not detected (Not Detect) S. maltophilia (PCR) Not detected (Not Detect) Streptococcus sp PCR Not detected (Not Detect) Group A Strep (PCR) Not detected (Not Detect) Strep agalactiae (PCR) Not detected (Not Detect) Strep pneumoniae (PCR) Not detected (Not Detect) P. aeruginosa (PCR) Not detected (Not Detect) Calvin/B-Vanco Res Genes Not applicable (Not Detect) blaIMP Car res Gene PCR Not detected (Not Detect) KPC-Carbap Res Gene PCR Not detected (Not Detect) blaNDM Car Res Gene PCR Not detected (Not Detect) OXA-48 Carbapenem Resis Gene (PCR) Not detected (Not Detect) blaVIM Car Res Gene PCR Not detected (Not Detect) CTX-M Gene Resistance (PCR) Not detected (Not Detect) Urine Dip Bedside Urine Glucose Negative Bedside Urine Bilirubin - Negative Bedside Urine Ketone + 15 Urine Specific [place] 1.020 Bedside Urine Occult Blood + Bedside Urine pH 6 Bedside Urine Protein + 30 Bedside Urine Urobilinogen - Negative Bedside Urine Nitrite + Positive Bedside Urine Leukocytes +++ 500 Esterase Point of care testing: Urine Dip Bedside Urine Glucose Negative Bedside Urine Bilirubin - Negative Bedside Urine Ketone + 15 Urine Specific [place] 1.020 Bedside Urine Occult Blood + Bedside Urine pH 6 Bedside Urine Protein + 30 Bedside Urine Urobilinogen - Negative Bedside Urine Nitrite + Positive Bedside Urine Leukocytes +++ 500 Esterase MDM Narrative Medical decision making narrative: CC: 2 hours of right groin pain Complicating co-morbidities: Area of prior inguinal surgery with mesh placement, large left-sided staghorn calculus of the kidney Data collected from: patient Medical records reviewed: Urology notes regarding the left kidney and stone are reviewed Differential considered: Expanded right inguinal hernia, incarcerated hernia, volvulus, kidney stone Exam documented above, pertinent findings include: Patient has some mild tenderness in the right flank over the right groin and into the right testicle remainder of exam is benign. He does not have an acute surgical abdomen Lab Test results independently reviewed as above. Pertinent findings: Independently reviewed EKG: Imaging studies independently reviewed: CT scan from October of 2023 shows Right interpolar nonobstructive nephrolith measuring 9 mm (2/38). Two right lower pole nonobstructive nephroliths, the largest of which measures 7 mm Consultations: Treatments: Re-evaluations: Discussion: <Paola Gonzalez, - Last Filed: 07/20/24 04:08> Lab Data Labs: Lab Results 07/19/24 07/19/24 07/19/24 Range/Units 18:48 19:50 20:15 WBC 13.1 H (4.5-11.0) X10^3/uL RBC 5.10 (4.5-5.9) X10^6/uL Hgb 15.4 (13.5-17.5) g/dL Hct 46.1 (41-53) % MCV 90.5 (80-100) fL MCH 30.3 (26-34) PG MCHC 33.4 (30-36) % RDW 13.1 (11.6-14.8) % Plt Count 211 (150-400) X10^3/uL Neut % (Auto) 88.3 H (50-75) % Lymph % (Auto) 4.9 L (25-40) % [place] % (Auto) 6.7 (3-14) % Eos % (Auto) 0.0 L (2-4) % Baso % (Auto) 0.1 (0-2) % Neut # (Auto) 80051 H (1651-0426) /uL Lymph # (Auto) 600 L (7076-9027) /uL [place] # (Auto) 900 (0-900) /uL Eos # (Auto) 0 (0-450) /uL Baso # (Auto) 0 (0-100) /uL Sodium 137 (137-145) mmol/L Potassium 4.6 (3.4-5.1) mmol/L Chloride 102 (98-107) mmol/L Carbon Dioxide 27 (22-32) mmol/L BUN 23 H (9-20) mg/dL Creatinine 1.24 (0.66-1.25) mg/dL Estimated GFR 60 (>60) mL/min BUN/Creatinine Ratio 18.5 (6-22) Glucose 151 H (80-110) mg/dL Lactate 1.7 (0.7-2.1) mmol/L Calcium 9.4 (8.4-10.2) mg/dL Urine RBC 0-1/hpf D (0-5/HPF) Urine WBC 30-100/hpf H (0-5/HPF) Ur Squamous Epith Cells 0-1 /hpf (0-5/HPF) Urine Bacteria Many (>30) H (None) Ur Culture Indicated? Specimen cultured Vol Urine Centrifuged 10ml (spun) A.calcoaceticus-baumannii cmplx PCR (Not Detect) Bacteroides fragilis (Not Detect) Malathi albicans (PCR) (Not Detect) Malathi auris (PCR) (Not Detect) C. glabrata (PCR) (Not Detect) C. krusei (PCR) (Not Detect) C. parapsilosis (PCR) (Not Detect) C. tropicalis (PCR) (Not Detect) C. neoform/gattii (PCR) (Not Detect) Enterobacterales (PCR) (Not Detect) E. cloacae complex PCR (Not Detect) Enterococc faecalis PCR (Not Detect) Enterococc faecium PCR (Not Detect) E. coli (PCR) (Not Detect) H. influenzae (PCR) (Not Detect) Klebsiella aerogenes (PCR) (Not Detect) Klebsiella oxytoca PCR (Not Detect) Klebsiella pneumoniae (Not Detect) List. monocytogenes PCR (Not Detect) N. meningitidis (PCR) (Not Detect) Proteus species (PCR) (Not Detect) Salmonella spp. (PCR) (Not Detect) Serratia marcescens PCR (Not Detect) Staphylococcus sp PCR (Not Detect) Staph aureus (PCR) (Not Detect) mecA/C & MREJ Resist Gene (Not Detect) mecA/C-Methicil Resis Gene (Not Detect) mcr-1 Colistin Res Gene PCR (Not Detect) Staph epidermidis (PCR) (Not Detect) Staph lugdunensis PCR (Not Detect) S. maltophilia (PCR) (Not Detect) Streptococcus sp PCR (Not Detect) Group A Strep (PCR) (Not Detect) Strep agalactiae (PCR) (Not Detect) Strep pneumoniae (PCR) (Not Detect) P. aeruginosa (PCR) (Not Detect) Calvin/B-Vanco Res Genes (Not Detect) blaIMP Car res Gene PCR (Not Detect) KPC-Carbap Res Gene PCR (Not Detect) blaNDM Car Res Gene PCR (Not Detect) OXA-48 Carbapenem Resis Gene (PCR) (Not Detect) blaVIM Car Res Gene PCR (Not Detect) CTX-M Gene Resistance (PCR) (Not Detect) 07/20/24 07/20/24 07/20/24 Range/Units 04:37 06:30 09:15 WBC 6.0 D (4.5-11.0) X10^3/uL RBC 4.69 (4.5-5.9) X10^6/uL Hgb 14.3 (13.5-17.5) g/dL Hct 42.6 (41-53) % MCV 90.9 (80-100) fL MCH 30.5 (26-34) PG MCHC 33.6 (30-36) % RDW 13.2 (11.6-14.8) % Plt Count 122 L (150-400) X10^3/uL Neut % (Auto) 95.7 H (50-75) % Lymph % (Auto) 3.0 L (25-40) % [place] % (Auto) 1.1 L (3-14) % Eos % (Auto) 0.1 L (2-4) % Baso % (Auto) 0.1 (0-2) % Neut # (Auto) 5700 (6434-8274) /uL Lymph # (Auto) 200 L (1573-0988) /uL [place] # (Auto) 100 (0-900) /uL Eos # (Auto) 0 (0-450) /uL Baso # (Auto) 0 (0-100) /uL Sodium 137 (137-145) mmol/L Potassium 4.3 (3.4-5.1) mmol/L Chloride 103 (98-107) mmol/L Carbon Dioxide 19 L (22-32) mmol/L BUN 29 H (9-20) mg/dL Creatinine 2.09 H (0.66-1.25) mg/dL Estimated GFR 32 L (>60) mL/min BUN/Creatinine Ratio 13.9 (6-22) Glucose 154 H (80-110) mg/dL Lactate 7.5 H* 5.0 H* (0.7-2.1) mmol/L Calcium 8.6 (8.4-10.2) mg/dL Urine RBC (0-5/HPF) Urine WBC (0-5/HPF) Ur Squamous Epith Cells (0-5/HPF) Urine Bacteria (None) Ur Culture Indicated? Vol Urine Centrifuged A.calcoaceticus-baumannii cmplx PCR Not detected (Not Detect) Bacteroides fragilis Not detected (Not Detect) Malathi albicans (PCR) Not detected (Not Detect) Malathi auris (PCR) Not detected (Not Detect) C. glabrata (PCR) Not detected (Not Detect) C. krusei (PCR) Not detected (Not Detect) C. parapsilosis (PCR) Not detected (Not Detect) C. tropicalis (PCR) Not detected (Not Detect) C. neoform/gattii (PCR) Not detected (Not Detect) Enterobacterales (PCR) Detected (Not Detect) E. cloacae complex PCR Not detected (Not Detect) Enterococc faecalis PCR Not detected (Not Detect) Enterococc faecium PCR Not detected (Not Detect) E. coli (PCR) Not detected (Not Detect) H. influenzae (PCR) Not detected (Not Detect) Klebsiella aerogenes (PCR) Not detected (Not Detect) Klebsiella oxytoca PCR Not detected (Not Detect) Klebsiella pneumoniae Detected (Not Detect) List. monocytogenes PCR Not detected (Not Detect) N. meningitidis (PCR) Not detected (Not Detect) Proteus species (PCR) Not detected (Not Detect) Salmonella spp. (PCR) Not detected (Not Detect) Serratia marcescens PCR Not detected (Not Detect) Staphylococcus sp PCR Not detected (Not Detect) Staph aureus (PCR) Not detected (Not Detect) mecA/C & MREJ Resist Gene Not applicable (Not Detect) mecA/C-Methicil Resis Gene Not applicable (Not Detect) mcr-1 Colistin Res Gene PCR Not detected (Not Detect) Staph epidermidis (PCR) Not detected (Not Detect) Staph lugdunensis PCR Not detected (Not Detect) S. maltophilia (PCR) Not detected (Not Detect) Streptococcus sp PCR Not detected (Not Detect) Group A Strep (PCR) Not detected (Not Detect) Strep agalactiae (PCR) Not detected (Not Detect) Strep pneumoniae (PCR) Not detected (Not Detect) P. aeruginosa (PCR) Not detected (Not Detect) Calvin/B-Vanco Res Genes Not applicable (Not Detect) blaIMP Car res Gene PCR Not detected (Not Detect) KPC-Carbap Res Gene PCR Not detected (Not Detect) blaNDM Car Res Gene PCR Not detected (Not Detect) OXA-48 Carbapenem Resis Gene (PCR) Not detected (Not Detect) blaVIM Car Res Gene PCR Not detected (Not Detect) CTX-M Gene Resistance (PCR) Not detected (Not Detect) Urine Dip Bedside Urine Glucose Negative Bedside Urine Bilirubin - Negative Bedside Urine Ketone + 15 Urine Specific [place] 1.020 Bedside Urine Occult Blood + Bedside Urine pH 6 Bedside Urine Protein + 30 Bedside Urine Urobilinogen - Negative Bedside Urine Nitrite + Positive Bedside Urine Leukocytes +++ 500 Esterase Point of care testing: Urine Dip Bedside Urine Glucose Negative Bedside Urine Bilirubin - Negative Bedside Urine Ketone + 15 Urine Specific [place] 1.020 Bedside Urine Occult Blood + Bedside Urine pH 6 Bedside Urine Protein + 30 Bedside Urine Urobilinogen - Negative Bedside Urine Nitrite + Positive Bedside Urine Leukocytes +++ 500 Esterase Imaging Data US - abdomen: Radiologist's Impression: PROCEDURE: US RENAL COMPLETE INDICATIONS: concern R kidney stone, hydro? TECHNIQUE: Real-time scanning was performed of the kidneys and bladder, with image documentation. COMPARISON: [facility], CT, CT ABDOMEN PELVIS W CON, 10/06/2023, 3:30. FINDINGS: Kidneys: Kidneys are normal in size. Right kidney measures 12.2 cm long; left kidney measures 12.9 cm long. Right renal cortical thickness is 2.4 cm; left renal cortical thickness is 1.1 cm. Simple cyst is noted in bilateral kidneys measures up to 2.5 x 1.8 x 1.8 cm in size in midpole right kidney and up to 2.7 x 2.6 x 2.3 cm in size in lower pole left kidney. 2.5 cm nonobstructing stone is seen in lower pole left kidney. No hydronephrosis . No suspicious solid mass lesions. Bladder: Bladder is decompressed. No gross bladder wall abnormality is seen. Miscellaneous: No free pelvic fluid. IMPRESSION: 1. Simple appearing bilateral renal cysts. Nonobstructing stones in left kidney. No solid appearing renal lesion. No hydronephrosis. 2. No gross abnormality is seen in decompressed urinary bladder. Dictated by: Dickson Hartley M.D. on 07/19/2024 at 18:00 US scrotum: Radiologist's Impression: PROCEDURE: US SCROTUM INDICATIONS: acute R testicular pain, ? referred ureteralithiasis TECHNIQUE: Real-time scanning was performed of the scrotum and testicles, with image documentation. Color and pulse Doppler interrogation was performed of both testicles. COMPARISON: None. FINDINGS: Right: Testicle is normal in size at 5.6 x 2.4 x 3.4 cm, and homogenous in echotexture. 3 mm simple appearing cyst is seen in upper portion of right testes. Epididymis is normal in overall size and morphology. No hydrocele or varicoceles. Overlying scrotal skin is normal in thickness. Left: Testicle is normal in size at 5.6 x 2.2 x 3.3 cm, and homogeneous in echotexture. 8 x 3 x 5 mm simple cyst is seen in inferior aspect of left testes. Epididymis is normal in overall size and morphology. No hydrocele or varicoceles. Overlying scrotal skin is normal in thickness. Doppler: Color and pulse Doppler demonstrate normal and symmetric arterial flow in both testicles. IMPRESSION: Simple appearing bilateral testicular cysts. No solid appearing testicular lesion. No evidence of testicular torsion. No hydrocele or varicoceles. Dictated by: Dickson Hartley M.D. on 07/19/2024 at 18:07 CT scan - abdomen/pelvis: Radiologist's Impression: Distal right obstructing 10 mm calculus with severe upstream hydro ureteral nephrosis and perinephric stranding consistent with obstructive uropathy. Additional bilateral nonobstructing renal calculi measuring up to 18 mm in the left inferior pole. Circumferential bladder wall thickening and mild perivesicular fat stranding findings maybe consistent with cystitis or infectious or inflammatory etiology correlate with urinalysis (imaging can be seen under [facility] PACs, CT was done at [facility] while [place] CT was down) MDM Narrative Medical decision making narrative: CC: 2 hours of right groin pain Complicating co-morbidities: Area of prior inguinal surgery with mesh placement, large left-sided staghorn calculus of the kidney Data collected from: patient Medical records reviewed: Urology notes regarding the left kidney and stone are reviewed Differential considered: Expanded right inguinal hernia, incarcerated hernia, volvulus, kidney stone Exam documented above, pertinent findings include: Patient has some mild tenderness in the right flank over the right groin and into the right testicle remainder of exam is benign. He does not have an acute surgical abdomen Lab Test results independently reviewed as above. Pertinent findings: Independently reviewed EKG: Imaging studies independently reviewed: CT scan from October of 2023 shows Right interpolar nonobstructive nephrolith measuring 9 mm (2/38). Two right lower pole nonobstructive nephroliths, the largest of which measures 7 mm Consultations: Treatments: Re-evaluations: Discussion: DR. Gonzalez- Patient was signed out to me by Dr. Workman seen evaluated patient myself. He overall appears comfortable. He does self-catheterize, prior CT scan shows large kidney stone of 9 mm the right side. He was having some pain and nausea today. Blood work does show leukocytosis of 13. He is afebrile. Blood cultures lactate pending Urinalysis positive for nitrates, leukocytes, and bacteria. 2014 Dr. Ramsey, updated patient's symptoms test results, agrees that patient needs a CT scan. We will wait for results CT results show large right ureteral stone 10 mm with perinephric stranding 12:12 Dr. Ramsey updated on patient's symptoms test results patient remains hemodynamically stable recommends patient be admitted to the hospitalist overnight. And he will stent tomorrow Dr. Phelan accepts Discharge Plan Departure Patient Disposition: Admitted as Observation Clinical Impression: Renal calculus, right, Acute UTI Admit Date/Time: 07/20/24 12:33 Admit Provider: Mariano Parker
--- NOTE | 2024-07-19 16:49 | DI.US.S_ITS ---
PROCEDURE: US SCROTUM INDICATIONS: acute R testicular pain, ? referred ureteralithiasis TECHNIQUE: Real-time scanning was performed of the scrotum and testicles, with image documentation. Color and pulse Doppler interrogation was performed of both testicles. COMPARISON: None. FINDINGS: Right: Testicle is normal in size at 5.6 x 2.4 x 3.4 cm, and homogenous in echotexture. 3 mm simple appearing cyst is seen in upper portion of right testes. Epididymis is normal in overall size and morphology. No hydrocele or varicoceles. Overlying scrotal skin is normal in thickness. Left: Testicle is normal in size at 5.6 x 2.2 x 3.3 cm, and homogeneous in echotexture. 8 x 3 x 5 mm simple cyst is seen in inferior aspect of left testes. Epididymis is normal in overall size and morphology. No hydrocele or varicoceles. Overlying scrotal skin is normal in thickness. Doppler: Color and pulse Doppler demonstrate normal and symmetric arterial flow in both testicles. IMPRESSION: Simple appearing bilateral testicular cysts. No solid appearing testicular lesion. No evidence of testicular torsion. No hydrocele or varicoceles. Dictated by: Dickson Hartley M.D. on 07/19/2024 at 18:07 Approved by: Dickson Hartley M.D. on 07/19/2024 at 18:08
--- NOTE | 2024-07-19 16:49 | DI.US.S_ITS ---
PROCEDURE: US RENAL COMPLETE INDICATIONS: concern R kidney stone, hydro? TECHNIQUE: Real-time scanning was performed of the kidneys and bladder, with image documentation. COMPARISON: [facility], CT, CT ABDOMEN PELVIS W CON, 10/06/2023, 3:30. FINDINGS: Kidneys: Kidneys are normal in size. Right kidney measures 12.2 cm long; left kidney measures 12.9 cm long. Right renal cortical thickness is 2.4 cm; left renal cortical thickness is 1.1 cm. Simple cyst is noted in bilateral kidneys measures up to 2.5 x 1.8 x 1.8 cm in size in midpole right kidney and up to 2.7 x 2.6 x 2.3 cm in size in lower pole left kidney. 2.5 cm nonobstructing stone is seen in lower pole left kidney. No hydronephrosis . No suspicious solid mass lesions. Bladder: Bladder is decompressed. No gross bladder wall abnormality is seen. Miscellaneous: No free pelvic fluid. IMPRESSION: 1. Simple appearing bilateral renal cysts. Nonobstructing stones in left kidney. No solid appearing renal lesion. No hydronephrosis. 2. No gross abnormality is seen in decompressed urinary bladder. Dictated by: Dickson Hartley M.D. on 07/19/2024 at 18:00 Approved by: Dickson Hartley M.D. on 07/19/2024 at 18:06
[2024-07-19] MEDS: ONDANSETRON 4 MG ODT SL (17:05)
[2024-07-19] MEDS: KETOROLAC 30 MG/ML VIAL 15 MG IV (18:52)
[2024-07-19] MEDS: ONDANSETRON 4 MG/2 ML INJ IV (18:52)
[2024-07-19] MEDS: SODIUM CHLORIDE 0.9% 1,000 ML 1000 ML IV (18:53)
[2024-07-19 18:57] LABS: Add Manual Diff / Slide Review NO; Basophils Absolute Auto 0 /uL (0-100); Basophils Percent Auto 0.1 % (0-2); Eosinophils Absolute Auto 0 /uL (0-450); Hematocrit 46.1 % (41-53); Hemoglobin 15.4 g/dL (13.5-17.5); Lymphocytes Absolute Auto 600 /uL (1100-4500); Lymphocytes Percent Auto 4.9 % (25-40); Mean Corpuscular HGB Conc 33.4 % (30-36); Mean Corpuscular Hemoglobin 30.3 PG (26-34); Mean Corpuscular Volume 90.5 fL (80-100); Monocytes Absolute Auto 900 /uL (0-900); Monocytes Percent Auto 6.7 % (3-14); Neutrophils Absolute Auto 11600 /uL (1500-7000); Neutrophils Percent Auto 88.3 % (50-75); Platelet Count 211 X10^3/uL (150-400); Red Cell Distribution Width 13.1 % (11.6-14.8); White Blood Cell Count 13.1 X10^3/uL (4.5-11.0)
[2024-07-19 19:06] LABS: BUN Creatinine Ratio 18.5 (6-22); Blood Urea Nitrogen 23 mg/dL (9-20); Calcium 9.4 mg/dL (8.4-10.2); Carbon Dioxide 27 mmol/L (22-32); Chloride 102 mmol/L (98-107); Estimated Glomerular Filt Rate 60 mL/min (>60); Glucose 151 mg/dL (80-110); HEMOLYSIS < 15 (0-50); Potassium 4.6 mmol/L (3.4-5.1); Sodium 137 mmol/L (137-145)
[2024-07-19 20:13] LABS: Bacteria Urine Many (>30); RBC Urine 0-1/HPF (0-5/HPF); Squamous Epithelial Cell Urine 0-1 /HPF (0-5/HPF); Urine Volume 10mL (spun); WBC Urine 30-100/HPF (0-5/HPF)
[2024-07-19 20:14] LABS: Culture Indicated Urine Specimen Cultured
[2024-07-19] MEDS: cefTRIAXone 1,000 MG in SODIUM CHLORIDE 0.9% 100 ML 200 MG IV (20:38)
[2024-07-19 20:39] LABS: Lactate (Lactic Acid) 1.7 mmol/L (0.7-2.1)
[2024-07-19] MEDS: METOCLOPRAMIDE 10 MG/2 ML INJ IV (22:00)
--- NOTE | 2024-07-19 22:04 | PC.NURSE ---
Patient picked up by [facility] for transport to [facility] for CT imaging. Will return to ER after imaging. Prior to departure, pt was medicated with 10mg iv [place] for n/v.
[2024-07-20] VITALS (74 sets, daily range): BP systolic 51–123; BP diastolic 26–69; PULSE 68–116; RESP 11–31; TEMP 36.3–38.4; O2SAT 90–97; BMI 25.9
--- NOTE | 2024-07-20 | DI.RAD.S_ITS ---
PROCEDURE: XR ABDOMEN 1V INDICATIONS: STENT PLACEMENT TECHNIQUE: 3 intra-operative images acquired by the Urology service. COMPARISON: [facility], CR, XR ABDOMEN 1V, 01/03/2024, 8:55. FINDINGS: Opacification of the moderately dilated right renal collecting system. Two right ureteral stents are identified in satisfactory position. IMPRESSION: Opacified moderately dilated right renal collecting system and dual right ureteral stents. Dictated by: Yousif Johnson M.D. on 07/20/2024 at 16:58 Approved by: Yousif Johnson M.D. on 07/20/2024 at 16:59
[2024-07-20] MEDS: HYDROMORPHONE 0.5 MG INJ IV (00:18)
[2024-07-20] MEDS: ONDANSETRON 4 MG/2 ML INJ IV (04:18)
[2024-07-20] MEDS: SODIUM CHLORIDE 0.9% 1,000 ML 100 ML IV ×2 (04:21→12:32)
--- NOTE | 2024-07-20 04:31 | PC.NURSE ---
Addendum entered by Tiana Hopper R.N. 07/20/24 07:36: Notified MD Phelan, MD Ramsey & MD Del Cid of critical lactate: 7.5. Patient planning to go down to OR this morning. MD Ramsey at bedside now. Addendum entered by Tiana Hopper R.N. 07/20/24 06:18: Patient awoke shaking, stated he felt cold & began dry heaving. BP 121/67, HR tachy in 120s. Temp 98.9. Increased O2 to 2L oximask, SpO2 92%. Patient is alert, denies pain. Tylenol given per rectal for chills. Notified MD of patient change & blood cx result; labs & IV Cefepime ordered. New orders completed, lab orders pending. Original Note: striker off: Patient arrived onto floor approximately 0015 via WC, ambulated to bed via SBA. 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 Intermittent nausea w/ emesis throughout the night, IV Zofran given. VSS, SpO2 94% on 0.5L NC. MD Phelan spoke with patient via [employer] cart, patient verbalizes understanding of plan of care. IVF infusing. Patient is using the urinal, bladder scanning PRN to check post-residual void. Patient states he self-caths every night before bed. Patient resting in bed, oriented to call-light, plan of care ongoing.
[2024-07-20 05:49] LABS: Acinetobacter calcoa-baumannii Not Detected (Not Detect); Bacteroides fragilis Not Detected (Not Detect); CTX-M Resistance Not Detected (Not Detect); Candida albicans Not Detected (Not Detect); Candida auris Not Detected (Not Detect); Candida glabrata Not Detected (Not Detect); Candida krusei Not Detected (Not Detect); Candida parapsilosis Not Detected (Not Detect); Candida tropicalis Not Detected (Not Detect); Cryptococcus neoformans/gatti Not Detected (Not Detect); Enterobacter cloacae complex Not Detected (Not Detect); Enterobacterales Detected (Not Detect); Enterococcus faecalis Not Detected (Not Detect); Enterococcus faecium Not Detected (Not Detect); Haemophilus influenzae Not Detected (Not Detect); IMP Resistance Not Detected (Not Detect); KPC Resistance Not Detected (Not Detect); Klebsiella aerogenes Not Detected (Not Detect); Listeria monocytogenes Not Detected (Not Detect); NDM Resistance Not Detected (Not Detect); Neisseria meningitidis Not Detected (Not Detect); OXA-48-like Resistance Not Detected (Not Detect); Proteus species Not Detected (Not Detect); Pseudomonas aeruginosa Not Detected (Not Detect); Salmonella species Not Detected (Not Detect); Serratia marcescens Not Detected (Not Detect); Staphylococcus epidermidis Not Detected (Not Detect); Staphylococcus lugdunensis Not Detected (Not Detect); Staphylococcus species Not Detected (Not Detect); Stenotrophomonas maltophilia Not Detected (Not Detect); Streptococcus agalactiae (Gr B Not Detected (Not Detect); Streptococcus pneumonia Not Detected (Not Detect); Streptococcus pyogenes (Gr A) Not Detected (Not Detect); Streptococcus species Not Detected (Not Detect); VIM Resistance Not Detected (Not Detect); mcr-1 Resistance Not Detected (Not Detect)
[2024-07-20] MEDS: ACETAMINOPHEN 650 MG SUPP PR (05:58)
[2024-07-20] MEDS: CEFEPIME 1 GM in SODIUM CHLORIDE 0.9% 100 ML IV ×2 (06:11→17:30)
--- NOTE | 2024-07-20 06:28 | P.HP_ITS ---
History of Present Illness History of Present Illness Date Patient Seen: 07/20/24 Chief complaint: lower abd px Narrative: 79 years old with PMH of kidney stones, BPH with LUTs, self-catheterizations, presented with renal colic and obstructing distal, Rt ureteral stone of 10 mm. Upon admission turning septic. Treated with IVBFs, Rocephin in the ED, started on Cefepime upon admission. FORMERLY [facility] Medical History Retained ureteral stent Bilateral nephrolithiasis BPH loc w urin obs/LUTS Urinary retention Medicare annual wellness visit, subsequent Travel advice encounter Well adult exam Kidney stones Internal hemorrhoids Preventative health care Hyperglycemia Preventative health care BPH (benign prostatic hyperplasia) Colon polyps (~2006) Skin cancer (~2008) Surgical History H/O cystoscopy (10/07/23) History of prostate surgery (10/07/23) Anesthesia History of hernia repair (~2011) Social History marital status: number of children: 2 household members: spouse Smoking Status: Never smoker alcohol intake: former substance use type: does not use caffeine: Yes Type(s) of exercise: walking and other Meds Home Medications and Allergies Home Medications Medication Instructions Recorded Confirmed Type lactobacillus combination no.9 1 cap PO DAILY 05/13/20 07/20/24 History [Adult 50 Plus Probiotic] cholecalciferol (vitamin D3) 1,000 tab PO .QD 08/15/20 07/20/24 History Allergies Allergy/AdvReac Type Severity Reaction Status Date / Time No Known Drug Allergies Allergy Verified 01/21/24 10:03 Review of Systems Constitutional Comments: He had chills in the ED Gastrointestinal Comments: nausea Genitourinary Comments: right groin pain w/o hematuria Exam Vital Signs (past 8 hours): - 07/19/24 23:26 07/19/24 23:27 07/19/24 23:27 Temperature Pulse Rate 111 H 107 H Respiratory Rate Blood Pressure 120/64 Pulse Oximetry 92 91 Oxygen Delivery Method Oxygen Flow Rate 07/19/24 23:30 07/20/24 00:00 07/20/24 00:19 Temperature Pulse Rate 106 H 99 H Respiratory Rate Blood Pressure Pulse Oximetry 91 91 Oxygen Delivery Method Nasal Cannula Oxygen Flow Rate 07/20/24 00:30 07/20/24 00:50 07/20/24 01:29 Temperature 98.4 F Pulse Rate 100 H 98 H Respiratory Rate 16 Blood Pressure 109/64 Pulse Oximetry 91 93 93 Oxygen Delivery Method Oxygen Flow Rate 0.5 07/20/24 04:01 07/20/24 05:58 07/20/24 06:20 Temperature 97.4 F L 98.9 F 98.8 F Pulse Rate 96 H 116 H Respiratory Rate 16 22 Blood Pressure 104/69 121/67 Pulse Oximetry 93 95 Oxygen Delivery Method Oxygen Flow Rate 0.5 Oxygen Delivery Method Nasal Cannula Oxygen Flow Rate 0.5 Narrative Exam Narrative: in no distress Resp Other: normal respiratory effort Cardio Other: RRR GI Other: w/o distension, not tender Objective Labs 07/19/24 18:48 07/19/24 18:48 Labs: Laboratory Results - last 24 hr 07/19/24 07/19/24 07/19/24 18:48 19:50 20:15 WBC 13.1 H RBC 5.10 Hgb 15.4 Hct 46.1 MCV 90.5 MCH 30.3 MCHC 33.4 RDW 13.1 Plt Count 211 Neut % (Auto) 88.3 H Lymph % (Auto) 4.9 L [place]alf[place] % (Auto) 6.7 Eos % (Auto) 0.0 L Baso % (Auto) 0.1 Neut # (Auto) 56317 H Lymph # (Auto) 600 L [place] # (Auto) 900 Eos # (Auto) 0 Baso # (Auto) 0 Sodium 137 Potassium 4.6 Chloride 102 Carbon Dioxide 27 BUN 23 H Creatinine 1.24 Estimated GFR 60 BUN/Creatinine Ratio 18.5 Glucose 151 H Lactate 1.7 Calcium 9.4 Urine RBC 0-1/hpf D Urine WBC 30-100/hpf H Ur Squamous Epith Cells 0-1 /hpf Urine Bacteria Many (>30) H Ur Culture Indicated? Specimen cultured Vol Urine Centrifuged 10ml (spun) A.calcoaceticus-baumannii cmplx PCR Bacteroides fragilis Malathi albicans (PCR) Malathi auris (PCR) C. glabrata (PCR) C. krusei (PCR) C. parapsilosis (PCR) C. tropicalis (PCR) C. neoform/gattii (PCR) Enterobacterales (PCR) E. cloacae complex PCR Enterococc faecalis PCR Enterococc faecium PCR E. coli (PCR) H. influenzae (PCR) Klebsiella aerogenes (PCR) Klebsiella oxytoca PCR Klebsiella pneumoniae List. monocytogenes PCR N. meningitidis (PCR) Proteus species (PCR) Salmonella spp. (PCR) Serratia marcescens PCR Staphylococcus sp PCR Staph aureus (PCR) mecA/C & MREJ Resist Gene mecA/C-Methicil Resis Gene mcr-1 Colistin Res Gene PCR Staph epidermidis (PCR) Staph lugdunensis PCR S. maltophilia (PCR) Streptococcus sp PCR Group A Strep (PCR) Strep agalactiae (PCR) Strep pneumoniae (PCR) P. aeruginosa (PCR) Calvin/B-Vanco Res Genes blaIMP Car res Gene PCR KPC-Carbap Res Gene PCR blaNDM Car Res Gene PCR OXA-48 Carbapenem Resis Gene (PCR) blaVIM Car Res Gene PCR CTX-M Gene Resistance (PCR) 07/20/24 04:37 WBC RBC Hgb Hct MCV MCH MCHC RDW Plt Count Neut % (Auto) Lymph % (Auto) Alfalfa % (Auto) Eos % (Auto) Baso % (Auto) Neut # (Auto) Lymph # (Auto) [place]falfa # (Auto) Eos # (Auto) Baso # (Auto) Sodium Potassium Chloride Carbon Dioxide BUN Creatinine Estimated GFR BUN/Creatinine Ratio Glucose Lactate Calcium Urine RBC Urine WBC Ur Squamous Epith Cells Urine Bacteria Ur Culture Indicated? Vol Urine Centrifuged A.calcoaceticus-baumannii cmplx PCR Not detected Bacteroides fragilis Not detected Malathi albicans (PCR) Not detected Malathi auris (PCR) Not detected C. glabrata (PCR) Not detected C. krusei (PCR) Not detected C. parapsilosis (PCR) Not detected C. tropicalis (PCR) Not detected C. neoform/gattii (PCR) Not detected Enterobacterales (PCR) Detected E. cloacae complex PCR Not detected Enterococc faecalis PCR Not detected Enterococc faecium PCR Not detected E. coli (PCR) Not detected H. influenzae (PCR) Not detected Klebsiella aerogenes (PCR) Not detected Klebsiella oxytoca PCR Not detected Klebsiella pneumoniae Detected List. monocytogenes PCR Not detected N. meningitidis (PCR) Not detected Proteus species (PCR) Not detected Salmonella spp. (PCR) Not detected Serratia marcescens PCR Not detected Staphylococcus sp PCR Not detected Staph aureus (PCR) Not detected mecA/C & MREJ Resist Gene Not applicable mecA/C-Methicil Resis Gene Not applicable mcr-1 Colistin Res Gene PCR Not detected Staph epidermidis (PCR) Not detected Staph lugdunensis PCR Not detected S. maltophilia (PCR) Not detected Streptococcus sp PCR Not detected Group A Strep (PCR) Not detected Strep agalactiae (PCR) Not detected Strep pneumoniae (PCR) Not detected P. aeruginosa (PCR) Not detected Calvin/B-Vanco Res Genes Not applicable blaIMP Car res Gene PCR Not detected KPC-Carbap Res Gene PCR Not detected blaNDM Car Res Gene PCR Not detected OXA-48 Carbapenem Resis Gene (PCR) Not detected blaVIM Car Res Gene PCR Not detected CTX-M Gene Resistance (PCR) Not detected Assessment & Plan Assessment and plan (1) Ureteral calculus, right: Status: Acute (2) UTI (urinary tract infection): Status: Acute (3) Kidney stones: Status: Acute (4) BPH loc w urin obs/LUTS: Status: Acute Assessment & Plan narrative: Rt Ureteral Obstructing Stone - NPO - pain management, antiemetics, IVFs - urology will proceed with cystoscopy and stenting UTI / Sepsis / BPH with LUTS - culture positive within a few hours with gram negatives - started Cefepime - LA not elevated, not hypotensive - symptomatic with shaking chills - has 2 risk factors - stone and self catheterizations DVT prophylaxis - SCDs Time-Based Coding :: [TOTAL MINUTES] spent with patient and on the chart (including review of chart, obtaining history, exam, reviewing outside data, placing orders, documenting exam and treatment plan, and counseling patient) on [DATE].
[2024-07-20 06:48] LABS: Add Manual Diff / Slide Review NO; Basophils Absolute Auto 0 /uL (0-100); Basophils Percent Auto 0.1 % (0-2); Eosinophils Absolute Auto 0 /uL (0-450); Eosinophils Percent Auto 0.1 % (2-4); Hematocrit 42.6 % (41-53); Hemoglobin 14.3 g/dL (13.5-17.5); Lymphocytes Absolute Auto 200 /uL (1100-4500); Mean Corpuscular HGB Conc 33.6 % (30-36); Mean Corpuscular Hemoglobin 30.5 PG (26-34); Mean Corpuscular Volume 90.9 fL (80-100); Monocytes Absolute Auto 100 /uL (0-900); Monocytes Percent Auto 1.1 % (3-14); Neutrophils Absolute Auto 5700 /uL (1500-7000); Neutrophils Percent Auto 95.7 % (50-75); Platelet Count 122 X10^3/uL (150-400); Red Blood Cell Count 4.69 X10^6/uL (4.5-5.9); Red Cell Distribution Width 13.2 % (11.6-14.8)
[2024-07-20 06:59] LABS: BUN Creatinine Ratio 13.9 (6-22); Blood Urea Nitrogen 29 mg/dL (9-20); Calcium 8.6 mg/dL (8.4-10.2); Carbon Dioxide 19 mmol/L (22-32); Chloride 103 mmol/L (98-107); Estimated Glomerular Filt Rate 32 mL/min (>60); Glucose 154 mg/dL (80-110); HEMOLYSIS < 15 (0-50); Potassium 4.3 mmol/L (3.4-5.1); Sodium 137 mmol/L (137-145)
[2024-07-20 07:01] LABS: Lactate (Lactic Acid) 7.5 mmol/L (0.7-2.1)
--- NOTE | 2024-07-20 07:49 | PC.NURSE ---
Day shift: Patient feels hot and looks pale, slightly confused - impaired short-term memory. Able to answer questions and follow commands. Removed condom cathetar. MD Nazario at bedside for consent signed. 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
--- NOTE | 2024-07-20 07:55 | PM.CN.IH.1 ---
History of Present Illness Consult details Date Patient Seen: 07/20/24 Time Patient Seen: 07:25 Chief complaint: right flank pain Narrative: 79 y/o M w/ h/o BPH w/ LUTS, inability to fully empty his bladder requiring CIC and nephrolithiasis. Regarding his BPH w/ LUTS, he was treated with CIC for roughly 6 weeks prior to his Aquablation that was completed in early October 2023. Of note, he was also noted a day prior to his procedure to have an 8mm left distal ureterolith that was managed acutely with a left ureteral stent placement under the same anesthetic as his Aquablation given that he also has a 14mm left lower pole calculus. Unfortunately, his left ureteral stent was noted to have proximal migration of the distal curl into his distal left ureter. He is now s/p a cystoscopy with left ureteroscopy, laser lithotripsy and left ureteral stent exchange in Dec. His procedure was notable for a very large and impacted left lower pole calyx that occupies the entire calyx. Regarding his Aquablation procedure, he feels that his urinary stream is much stronger now and he is better able to empty his bladder and pass his urinary catheter than prior to his procedure. Unfortunately, he began to feel severe right flank pain w/ associated nausea and vomiting yesterday afternoon that felt similar to prior kidney stone episodes. The pain would radiate towards his right testicle. He otherwise denied dysuria, urinary urgency/frequency, suprapubic pain/discomfort or fevers/chills. His evaluation in the ER was notable for a WBC of 13.1, sCr of 1.24, Lactate 1.[address] Abd/Pel that noted a 10mm right distal ureterolith w/ resultant upstream severe hydroureteronephrosis and bilateral non-obstructing nephrolithiasis (small right lower pole nephrolith, large left lower pole nephrolith). He was admitted to the hospitalist service overnight for IV antibiotics. Unfortunately, he was noted to become tachycardic this AM w/ a sCr of 0.9 and a lactate of 7.5, therefore, Urology was consulted for urgent right ureteral stent placement. Meds Home Medications and Allergies Home Medications Medication Instructions Recorded Confirmed Type lactobacillus combination no.9 1 cap PO DAILY 05/13/20 07/20/24 History [Adult 50 Plus Probiotic] cholecalciferol (vitamin D3) 1,000 tab PO .QD 08/15/20 07/20/24 History Allergies Allergy/AdvReac Type Severity Reaction Status Date / Time No Known Drug Allergies Allergy Verified 01/21/24 10:03 Review of Systems Review of Systems Narrative: CONSTITUTIONAL: Denies weight loss, fevers, chills. HEENT: Denies change in vision, hearing. RESP: Denies SOB, cough. CV: Denies palpations, CP. GI: Denies abdominal pain, nausea, vomiting, diarrhea. MSK: Denies myalgia, joint pain. SKIN: Denies rash, pruritus. NEURO: Denies headache, syncope. PSYCH: Denies recent change in mood, anxiety, depression. Exam Vital Signs (past 8 hours): - 07/20/24 00:00 07/20/24 00:19 07/20/24 00:30 Temperature Pulse Rate 99 H 100 H Respiratory Rate Blood Pressure Pulse Oximetry 91 91 Oxygen Delivery Method Nasal Cannula Oxygen Flow Rate 07/20/24 00:50 07/20/24 01:29 07/20/24 04:01 Temperature 98.4 F 97.4 F L Pulse Rate 98 H 96 H Respiratory Rate 16 16 Blood Pressure 109/64 104/69 Pulse Oximetry 93 93 93 Oxygen Delivery Method Oxygen Flow Rate 0.5 0.5 07/20/24 05:58 07/20/24 06:20 07/20/24 06:51 Temperature 98.9 F 98.8 F 98.2 F Pulse Rate 116 H Respiratory Rate 22 Blood Pressure 121/67 Pulse Oximetry 95 Oxygen Delivery Method Oxygen Flow Rate Oxygen Delivery Method Nasal Cannula Oxygen Flow Rate 0.5 Narrative Exam Narrative: GEN: Alert and oriented X3. No acute distress. Well-nourished. EYES: PERRLA, EOMI. HENT: Moist mucus membranes, no scleral icterus, normal neck ROM. RESP: Unlabored breathing, equal rise and fall of chest bilaterally, no cyanosis appreciated. CV: No peripheral edema, unremarkable heart rate. ABD: Soft, non-tender, non-distended, no palpable masses. EXT: No edema, clubbing or cyanosis. SKIN: No rashes or lesions. NEURO: No focal neurologic deficits, CN II-XII grossly intact. PSYCH: Cooperative, appropriate mood and affect. Objective Labs 07/20/24 06:30 07/20/24 06:30 Labs: Laboratory Results - last 24 hr 07/19/24 07/19/24 07/19/24 18:48 19:50 20:15 WBC 13.1 H RBC 5.10 Hgb 15.4 Hct 46.1 MCV 90.5 MCH 30.3 MCHC 33.4 RDW 13.1 Plt Count 211 Neut % (Auto) 88.3 H Lymph % (Auto) 4.9 L [place] % (Auto) 6.7 Eos % (Auto) 0.0 L Baso % (Auto) 0.1 Neut # (Auto) 77147 H Lymph # (Auto) 600 L [place] # (Auto) 900 Eos # (Auto) 0 Baso # (Auto) 0 Sodium 137 Potassium 4.6 Chloride 102 Carbon Dioxide 27 BUN 23 H Creatinine 1.24 Estimated GFR 60 BUN/Creatinine Ratio 18.5 Glucose 151 H Lactate 1.7 Calcium 9.4 Urine RBC 0-1/hpf D Urine WBC 30-100/hpf H Ur Squamous Epith Cells 0-1 /hpf Urine Bacteria Many (>30) H Ur Culture Indicated? Specimen cultured Vol Urine Centrifuged 10ml (spun) A.calcoaceticus-baumannii cmplx PCR Bacteroides fragilis Malathi albicans (PCR) Malathi auris (PCR) C. glabrata (PCR) C. krusei (PCR) C. parapsilosis (PCR) C. tropicalis (PCR) C. neoform/gattii (PCR) Enterobacterales (PCR) E. cloacae complex PCR Enterococc faecalis PCR Enterococc faecium PCR E. coli (PCR) H. influenzae (PCR) Klebsiella aerogenes (PCR) Klebsiella oxytoca PCR Klebsiella pneumoniae List. monocytogenes PCR N. meningitidis (PCR) Proteus species (PCR) Salmonella spp. (PCR) Serratia marcescens PCR Staphylococcus sp PCR Staph aureus (PCR) mecA/C & MREJ Resist Gene mecA/C-Methicil Resis Gene mcr-1 Colistin Res Gene PCR Staph epidermidis (PCR) Staph lugdunensis PCR S. maltophilia (PCR) Streptococcus sp PCR Group A Strep (PCR) Strep agalactiae (PCR) Strep pneumoniae (PCR) P. aeruginosa (PCR) Calvin/B-Vanco Res Genes blaIMP Car res Gene PCR KPC-Carbap Res Gene PCR blaNDM Car Res Gene PCR OXA-48 Carbapenem Resis Gene (PCR) blaVIM Car Res Gene PCR CTX-M Gene Resistance (PCR) 07/20/24 07/20/24 04:37 06:30 WBC 6.0 D RBC 4.69 Hgb 14.3 Hct 42.6 MCV 90.9 MCH 30.5 MCHC 33.6 RDW 13.2 Plt Count 122 L Neut % (Auto) 95.7 H Lymph % (Auto) 3.0 L [place] % (Auto) 1.1 L Eos % (Auto) 0.1 L Baso % (Auto) 0.1 Neut # (Auto) 5700 Lymph # (Auto) 200 L [place] # (Auto) 100 Eos # (Auto) 0 Baso # (Auto) 0 Sodium 137 Potassium 4.3 Chloride 103 Carbon Dioxide 19 L BUN 29 H Creatinine 2.09 H Estimated GFR 32 L BUN/Creatinine Ratio 13.9 Glucose 154 H Lactate 7.5 H* Calcium 8.6 Urine RBC Urine WBC Ur Squamous Epith Cells Urine Bacteria Ur Culture Indicated? Vol Urine Centrifuged A.calcoaceticus-baumannii cmplx PCR Not detected Bacteroides fragilis Not detected Malathi albicans (PCR) Not detected Malathi auris (PCR) Not detected C. glabrata (PCR) Not detected C. krusei (PCR) Not detected C. parapsilosis (PCR) Not detected C. tropicalis (PCR) Not detected C. neoform/gattii (PCR) Not detected Enterobacterales (PCR) Detected E. cloacae complex PCR Not detected Enterococc faecalis PCR Not detected Enterococc faecium PCR Not detected E. coli (PCR) Not detected H. influenzae (PCR) Not detected Klebsiella aerogenes (PCR) Not detected Klebsiella oxytoca PCR Not detected Klebsiella pneumoniae Detected List. monocytogenes PCR Not detected N. meningitidis (PCR) Not detected Proteus species (PCR) Not detected Salmonella spp. (PCR) Not detected Serratia marcescens PCR Not detected Staphylococcus sp PCR Not detected Staph aureus (PCR) Not detected mecA/C & MREJ Resist Gene Not applicable mecA/C-Methicil Resis Gene Not applicable mcr-1 Colistin Res Gene PCR Not detected Staph epidermidis (PCR) Not detected Staph lugdunensis PCR Not detected S. maltophilia (PCR) Not detected Streptococcus sp PCR Not detected Group A Strep (PCR) Not detected Strep agalactiae (PCR) Not detected Strep pneumoniae (PCR) Not detected P. aeruginosa (PCR) Not detected Calvin/B-Vanco Res Genes Not applicable blaIMP Car res Gene PCR Not detected KPC-Carbap Res Gene PCR Not detected blaNDM Car Res Gene PCR Not detected OXA-48 Carbapenem Resis Gene (PCR) Not detected blaVIM Car Res Gene PCR Not detected CTX-M Gene Resistance (PCR) Not detected PFSH Medical History Retained ureteral stent Bilateral nephrolithiasis BPH loc w urin obs/LUTS Urinary retention Medicare annual wellness visit, subsequent Travel advice encounter Well adult exam Kidney stones Internal hemorrhoids Preventative health care Hyperglycemia Preventative health care BPH (benign prostatic hyperplasia) Colon polyps (~2006) Skin cancer (~2008) Surgical History H/O cystoscopy (10/07/23) History of prostate surgery (10/07/23) Anesthesia History of hernia repair (~2011) Social History marital status: number of children: 2 household members: spouse Tobacco & Substance Use Smoking Status: Never smoker alcohol intake: former substance use type: does not use Diet and Exercise caffeine: Yes Type(s) of exercise: walking and other Assessment & Plan Assessment and plan (1) Ureteral calculus, right: Status: Acute Plan: 79 y/o M noted to have a 10mm right distal ureterolith w/ resultant upstream severe hydroureteronephrosis and an active urinary tract infection. Discussed treatment options to include continued medical expulsion therapy (not recommended given his urinary tract infection and concern for sepsis) vs cystoscopy with right ureteral stent placement in an urgent fashion. Discussed risks of the procedure to include pain, bleeding, infection, injury to urethra/bladder/ureter, inability to access the ureter requiring discussion with Interventional Radiology regarding a possible ureteral stent placement in an antegrade fashion vs a possible nephroureteral stent and/or percutaneous nephrostomy tube, urinary tract infection, need for emergent open repair of bladder and/or ureter. Informed consent was obtained. (2) UTI (urinary tract infection): Qualifiers: Urinary tract infection type: site unspecified Hematuria presence: without hematuria Qualified Code(s): N39.0 - Urinary tract infection, site not specified Status: Acute Plan: Please see plan above. Will remain admitted to hospital service, appreciate assistance w/ their care of this patient. - Recommend IV antibiotics based upon prior UCx results (sensitive to Rocephin). - Recommend tailoring oral antibiotics based upon UCx and BCx results as they return. - Urology will continue to follow throughout admission. - He will require definitive stone management via a cystoscopy, right ureteroscopy, laser lithotripsy and right ureteral stent exchange in the future. (3) BPH loc w urin obs/LUTS: Status: Acute Plan: Will plan on placing a figueroa catheter at the end of his procedure today that will remain in place during his acute recovery, will then have him transition to CIC every evening as he was previously doing. - DO NOT REMOVE FIGUEROA CATHETER WITHOUT SPEAKING TO DR. BROWER. Time-Based Coding :: [TOTAL MINUTES] spent with patient and on the chart (including review of chart, obtaining history, exam, reviewing outside data, placing orders, documenting exam and treatment plan, and counseling patient) on [DATE]. PROFEE Charge Codes Inpatient or Observation consultation: [id number]
[2024-07-20] MEDS: LACTATED RINGERS 1,000 ML 42 ML IV ×2 (08:06→09:57)
[2024-07-20 08:19] LABS: Reflexed Lactate in 2 Hours Y
[2024-07-20] MEDS: iopamidoL 30 ML VIAL INJ (08:33)
--- NOTE | 2024-07-20 08:36 | SUR.OPER ---
Lithotomy on padded OR bed, head on pillow, arms secured on padded arm boards at <90 degrees abduction. Legs secured in padded yellow fins stirrups.
--- NOTE | 2024-07-20 09:04 | P.OP_ITS ---
Procedure & Clinicians Procedure: Cystoscopy Right retrograde ureteropyelogram Right ureteroscopy Right ureteral stent placement x2 Intraoperative interpretation of fluoroscopic images, total time < 1 hour Same procedure as scheduled: No (Proximal migration of distal curl of first stent, requiring second stent) Indications: 79 y/o M noted to have a 10mm right distal ureterolith w/ resultant upstream severe hydroureteronephrosis and an active urinary tract infection. Discussed treatment options to include continued medical expulsion therapy (not recommended given his urinary tract infection and concern for sepsis) vs cystoscopy with right ureteral stent placement in an urgent fashion. Surgeon: Calvin Ramsey Click Yes if Unassisted: Yes Anesthesia Type: General Operative Notes Findings: Cloudy urine within bladder consistent with urinary tract infection, purulent debris draining from right ureteral orifice after cannulation, severe right hydroureteronephrosis Closure Type: not applicable Specimen(s): none sent Applied: catheter Estimated Blood Loss (mL): 2 Blood products transfused: none Procedure in detail: Patient was identified in the preoperative holding area and consent confirmed. He was then brought to the operating room where general anesthesia was induced.? He was then placed in the low lithotomy position. He was then prepped and draped in the usual sterile fashion. A surgical timeout was conducted and all were in agreement. Access to the bladder was obtained via a 21Fr cystoscope.? Cloudy urine was immediately noted within the bladder.? The right ureteral orifice was easily visualized and a 0.035 sensor tip ureteral guidewire was advanced through the 5Fr ureteral catheter and into the right renal collecting system.? The ureteral guidewire was removed and a retrograde pyelogram was performed which noted severe right hydroureteronephrosis.? The ureteral guidewire was readvanced through the ureteral catheter and into the right renal pelvis, at this time, purulent debris was noted to drain from his right ureteral orifice.? The ureteral catheter was then removed.? A 6Fr multi-length JJ ureteral stent withou t strings was then advanced over the ureteral guidewire and into the right renal collecting system.? Upon removal of the ureteral guidewire, a good curl was appreciated within the right renal pelvis upon fluoroscopy and visually within the bladder, unfortunately, his distal curl was noted to migrate into his distal right ureter. Therefore, the ureteral guidewire was advanced back into the right ureteral orifice and into the right renal collecting system. The cystoscope was then removed and the semirigid ureteroscope was advanced alongside the ureteral guidewire and into the distal right ureter and to the level of the distal curl of the aforementioned stent. Despite attempts to grab the distal curl with the stone basket for nearly 5 minutes, these efforts were unsuccessful. Therefore, the ureteroscope was removed and the cystoscope was readvanced over the ureteral guidewire and into the bladder. A second 6Fr multi-length ureteral stent without strings was then advanced over the guidewire and into the right renal collecting system. Upon removal of the ureteral guidewire, a good curl was noted within the right renal pelvis and visually within the bladder.? The bladder was then drained and the cystoscope was removed. An 18Fr catheter was advanced through the urethra and into this bladder. 10cc of sterile water was utilized for balloon insufflation.? Anesthesia was reversed, he was extubated in the OR and transferred to the PACU in stable condition for recovery. Complications: none Post-operative Condition: stable Disposition: Acute Care Plan for aftercare: Transfer back to Acute Care for recovery with assistance of the hospitalist service.
[2024-07-20] MEDS: LACTATED RINGERS 1,000 ML 999 ML IV ×2 (09:34→11:13)
[2024-07-20] MEDS: ALBUMIN HUMAN 12.5 GM/250 ML VIAL IV (09:38)
--- NOTE | 2024-07-20 10:58 | DI.RAD.S_ITS ---
PROCEDURE: XR CHEST FOR PICC 1V INDICATIONS: Line placement TECHNIQUE: One view of the chest was acquired. COMPARISON: [facility], CT, CT ABDOMEN PELVIS WITH CONTRAST, 07/19/2024, 22:46. FINDINGS: Surgical changes and devices: Left-sided PICC with the catheter tip at the lower 3rd of the SVC. Lungs and pleura: Lower lung volumes. No consolidation identified. No pleural effusions or pneumothorax. Mediastinum: Mediastinal contours appear normal. Heart size is normal. Bones and chest wall: No suspicious bony lesions. Overlying soft tissues appear unremarkable. IMPRESSION: Left-sided PICC with the catheter tip at the lower 3rd of the SVC. No pneumothorax demonstrated. Dictated by: Valdemar Scott M.D. on 07/20/2024 at 10:37 Approved by: Valdemar Scott M.D. on 07/20/2024 at 10:38
--- NOTE | 2024-07-20 12:09 | PC.NURSE ---
Addendum entered by Nirali Mathew R.N. 07/20/24 15:02: BP decreased after 4th liter of fluid and after IV fluid at 200 ml/hr, MAP in the 50s (see vital trends). Norepinephrine gtt started per Dr. Del Cid's order, titrating per protocol to MAP 65 or greater. Original Note: Day Shift/Transfer Note Patient arrived to room 226 from PACU, pt previously in room 210. All belongings brought to RM 226 from rm 210 (shoes). Patient arrived alert and oriented x3, reports feeling much much better and denies pain. On 2L NC with SpO2 94%, lungs are clear. ST in the low 100s, BP 80s/50s with MAP 65 and above. Pt received 3 liters of LR in PACU with 4th bag infusing on arrival to ICU. PICC line in place to left upper arm. Guevara catheter in place and draining dark orange/pink urine. Oriented to room and to call light/bed/tv controls. Call light within reach. , Angelica, updated over the phone and all questions answered.
[2024-07-20 12:53] LABS: Hematocrit 36.8 % (41-53); Hemoglobin 12.6 g/dL (13.5-17.5); Mean Corpuscular HGB Conc 34.1 % (30-36); Mean Corpuscular Hemoglobin 30.4 PG (26-34); Mean Corpuscular Volume 89.1 fL (80-100); Platelet Count 100 X10^3/uL (150-400); Red Blood Cell Count 4.14 X10^6/uL (4.5-5.9); Red Cell Distribution Width 13.2 % (11.6-14.8); White Blood Cell Count 13.6 X10^3/uL (4.5-11.0)
[2024-07-20 13:07] LABS: Alanine Aminotransferase 30 IU/L (<50); Albumin Globulin Ratio 1.2 (1.0-2.8); Alkaline Phosphatase 59 U/L (38-126); Aspartate Aminotransferase 46 IU/L (17-59); BUN Creatinine Ratio 15.8 (6-22); Blood Urea Nitrogen 32 mg/dL (9-20); Calcium 8.2 mg/dL (8.4-10.2); Carbon Dioxide 22 mmol/L (22-32); Chloride 104 mmol/L (98-107); Estimated Glomerular Filt Rate 33 mL/min (>60); Globulin 2.5 g/dL (1.7-4.1); Glucose 124 mg/dL (80-110); HEMOLYSIS < 15 (0-50); Potassium 3.7 mmol/L (3.4-5.1); Sodium 135 mmol/L (137-145); Total Protein 5.5 g/dL (6.3-8.2)
[2024-07-20 13:09] LABS: Lactate (Lactic Acid) 4.3 mmol/L (0.7-2.1)
--- NOTE | 2024-07-20 13:36 | P.PN_ITS ---
Subjective Subjective Interval history: From night doctor: 79 years old with PMH of kidney stones, BPH with LUTs, self- catheterizations, presented with renal colic and obstructing distal, Rt ureteral stone of 10 mm. Upon admission turning septic. Treated with IVBFs, Rocephin in the ED, started on Cefepime upon admission. Recent events: Morning lactic acid was up to 7. He was taken to the OR for stenting and developed postoperative hypotension. He was fluid resuscitated with 4 L of fluid and is now maintaining a map of over 65. He was afebrile. Blood cultures were positive for Gram-negative bacillus. A PICC line was placed. Subjective: Exam Vital Signs (past 8 hours): - 07/20/24 05:58 07/20/24 06:20 07/20/24 06:51 Temperature 98.9 F 98.8 F 98.2 F Pulse Rate 116 H Respiratory Rate 22 Blood Pressure 121/67 Pulse Oximetry 95 Oxygen Delivery Method Oxygen Flow Rate 07/20/24 07:30 07/20/24 08:01 07/20/24 09:09 Temperature 99.4 F 98.3 F 99.6 F Pulse Rate 95 H 86 105 H Respiratory Rate 30 H 16 16 Blood Pressure 107/56 L 97/50 L 96/58 L Pulse Oximetry 92 90 L 92 Oxygen Delivery Method Oximask Room Air Oxygen Flow Rate 3 07/20/24 09:14 07/20/24 09:19 07/20/24 09:29 Temperature Pulse Rate 105 H 103 H 106 H Respiratory Rate 20 20 23 Blood Pressure 80/46 L 82/47 L 80/46 L Pulse Oximetry 96 96 93 Oxygen Delivery Method Oximask Oximask Room Air Oxygen Flow Rate 3 3 07/20/24 09:39 07/20/24 10:00 07/20/24 10:14 Temperature 100.5 F H 99.5 F Pulse Rate 101 H 101 H 102 H Respiratory Rate 16 12 20 Blood Pressure 77/44 L 82/50 L 79/50 L Pulse Oximetry 94 94 95 Oxygen Delivery Method Nasal Cannula Room Air Nasal Cannula Oxygen Flow Rate 2 2 07/20/24 10:29 07/20/24 10:44 07/20/24 11:09 Temperature Pulse Rate 104 H 104 H 104 H Respiratory Rate 22 22 22 Blood Pressure 83/51 L 83/48 L 85/55 L Pulse Oximetry 94 94 96 Oxygen Delivery Method Room Air Nasal Cannula Nasal Cannula Oxygen Flow Rate 2 2 07/20/24 11:25 07/20/24 11:25 07/20/24 11:30 Temperature 100.3 F H Pulse Rate 108 H Respiratory Rate Blood Pressure 89/51 L 85/54 L Pulse Oximetry 94 Oxygen Delivery Method Oxygen Flow Rate 07/20/24 11:30 07/20/24 11:42 07/20/24 12:00 Temperature Pulse Rate 103 H 106 H Respiratory Rate 22 24 Blood Pressure Pulse Oximetry 95 94 Oxygen Delivery Method Nasal Cannula Oxygen Flow Rate 07/20/24 12:00 07/20/24 12:30 07/20/24 12:30 Temperature Pulse Rate 104 H Respiratory Rate 25 H Blood Pressure 92/54 L 89/51 L Pulse Oximetry 95 Oxygen Delivery Method Oxygen Flow Rate 07/20/24 13:00 07/20/24 13:00 Temperature Pulse Rate 106 H Respiratory Rate 23 Blood Pressure 91/51 L Pulse Oximetry 95 Oxygen Delivery Method Oxygen Flow Rate Oxygen Delivery Method Nasal Cannula Oxygen Flow Rate 2 Objective Labs 07/20/24 12:45 07/20/24 12:45 Labs: Laboratory Results - last 24 hr 07/19/24 07/19/24 07/19/24 18:48 19:50 20:15 WBC 13.1 H RBC 5.10 Hgb 15.4 Hct 46.1 MCV 90.5 MCH 30.3 MCHC 33.4 RDW 13.1 Plt Count 211 Neut % (Auto) 88.3 H Lymph % (Auto) 4.9 L [place] % (Auto) 6.7 Eos % (Auto) 0.0 L Baso % (Auto) 0.1 Neut # (Auto) 96628 H Lymph # (Auto) 600 L [place] # (Auto) 900 Eos # (Auto) 0 Baso # (Auto) 0 Sodium 137 Potassium 4.6 Chloride 102 Carbon Dioxide 27 BUN 23 H Creatinine 1.24 Estimated GFR 60 BUN/Creatinine Ratio 18.5 Glucose 151 H Lactate 1.7 Calcium 9.4 Total Bilirubin AST ALT Alkaline Phosphatase Total Protein Albumin Globulin Albumin/Globulin Ratio Urine RBC 0-1/hpf D Urine WBC 30-100/hpf H Ur Squamous Epith Cells 0-1 /hpf Urine Bacteria Many (>30) H Ur Culture Indicated? Specimen cultured Vol Urine Centrifuged 10ml (spun) A.calcoaceticus-baumannii cmplx PCR Bacteroides fragilis Malathi albicans (PCR) Malathi auris (PCR) C. glabrata (PCR) C. krusei (PCR) C. parapsilosis (PCR) C. tropicalis (PCR) C. neoform/gattii (PCR) Enterobacterales (PCR) E. cloacae complex PCR Enterococc faecalis PCR Enterococc faecium PCR E. coli (PCR) H. influenzae (PCR) Klebsiella aerogenes (PCR) Klebsiella oxytoca PCR Klebsiella pneumoniae List. monocytogenes PCR N. meningitidis (PCR) Proteus species (PCR) Salmonella spp. (PCR) Serratia marcescens PCR Staphylococcus sp PCR Staph aureus (PCR) mecA/C & MREJ Resist Gene mecA/C-Methicil Resis Gene mcr-1 Colistin Res Gene PCR Staph epidermidis (PCR) Staph lugdunensis PCR S. maltophilia (PCR) Streptococcus sp PCR Group A Strep (PCR) Strep agalactiae (PCR) Strep pneumoniae (PCR) P. aeruginosa (PCR) Calvin/B-Vanco Res Genes blaIMP Car res Gene PCR KPC-Carbap Res Gene PCR blaNDM Car Res Gene PCR OXA-48 Carbapenem Resis Gene (PCR) blaVIM Car Res Gene PCR CTX-M Gene Resistance (PCR) 07/20/24 07/20/24 07/20/24 04:37 06:30 09:15 WBC 6.0 D RBC 4.69 Hgb 14.3 Hct 42.6 MCV 90.9 MCH 30.5 MCHC 33.6 RDW 13.2 Plt Count 122 L Neut % (Auto) 95.7 H Lymph % (Auto) 3.0 L [place] % (Auto) 1.1 L Eos % (Auto) 0.1 L Baso % (Auto) 0.1 Neut # (Auto) 5700 Lymph # (Auto) 200 L [place] # (Auto) 100 Eos # (Auto) 0 Baso # (Auto) 0 Sodium 137 Potassium 4.3 Chloride 103 Carbon Dioxide 19 L BUN 29 H Creatinine 2.09 H Estimated GFR 32 L BUN/Creatinine Ratio 13.9 Glucose 154 H Lactate 7.5 H* 5.0 H* Calcium 8.6 Total Bilirubin AST ALT Alkaline Phosphatase Total Protein Albumin Globulin Albumin/Globulin Ratio Urine RBC Urine WBC Ur Squamous Epith Cells Urine Bacteria Ur Culture Indicated? Vol Urine Centrifuged A.calcoaceticus-baumannii cmplx PCR Not detected Bacteroides fragilis Not detected Malathi albicans (PCR) Not detected Malathi auris (PCR) Not detected C. glabrata (PCR) Not detected C. krusei (PCR) Not detected C. parapsilosis (PCR) Not detected C. tropicalis (PCR) Not detected C. neoform/gattii (PCR) Not detected Enterobacterales (PCR) Detected E. cloacae complex PCR Not detected Enterococc faecalis PCR Not detected Enterococc faecium PCR Not detected E. coli (PCR) Not detected H. influenzae (PCR) Not detected Klebsiella aerogenes (PCR) Not detected Klebsiella oxytoca PCR Not detected Klebsiella pneumoniae Detected List. monocytogenes PCR Not detected N. meningitidis (PCR) Not detected Proteus species (PCR) Not detected Salmonella spp. (PCR) Not detected Serratia marcescens PCR Not detected Staphylococcus sp PCR Not detected Staph aureus (PCR) Not detected mecA/C & MREJ Resist Gene Not applicable mecA/C-Methicil Resis Gene Not applicable mcr-1 Colistin Res Gene PCR Not detected Staph epidermidis (PCR) Not detected Staph lugdunensis PCR Not detected S. maltophilia (PCR) Not detected Streptococcus sp PCR Not detected Group A Strep (PCR) Not detected Strep agalactiae (PCR) Not detected Strep pneumoniae (PCR) Not detected P. aeruginosa (PCR) Not detected Calvin/B-Vanco Res Genes Not applicable blaIMP Car res Gene PCR Not detected KPC-Carbap Res Gene PCR Not detected blaNDM Car Res Gene PCR Not detected OXA-48 Carbapenem Resis Gene (PCR) Not detected blaVIM Car Res Gene PCR Not detected CTX-M Gene Resistance (PCR) Not detected 07/20/24 12:45 WBC 13.6 H D RBC 4.14 L Hgb 12.6 L Hct 36.8 L MCV 89.1 MCH 30.4 MCHC 34.1 RDW 13.2 Plt Count 100 L Neut % (Auto) Lymph % (Auto) [place] % (Auto) Eos % (Auto) Baso % (Auto) Neut # (Auto) Lymph # (Auto) [place] # (Auto) Eos # (Auto) Baso # (Auto) Sodium 135 L Potassium 3.7 Chloride 104 Carbon Dioxide 22 BUN 32 H Creatinine 2.02 H Estimated GFR 33 L BUN/Creatinine Ratio 15.8 Glucose 124 H Lactate 4.3 H* Calcium 8.2 L Total Bilirubin 1.0 AST 46 ALT 30 Alkaline Phosphatase 59 Total Protein 5.5 L Albumin 3.0 L Globulin 2.5 Albumin/Globulin Ratio 1.2 Urine RBC Urine WBC Ur Squamous Epith Cells Urine Bacteria Ur Culture Indicated? Vol Urine Centrifuged A.calcoaceticus-baumannii cmplx PCR Bacteroides fragilis Malathi albicans (PCR) Malathi auris (PCR) C. glabrata (PCR) C. krusei (PCR) C. parapsilosis (PCR) C. tropicalis (PCR) C. neoform/gattii (PCR) Enterobacterales (PCR) E. cloacae complex PCR Enterococc faecalis PCR Enterococc faecium PCR E. coli (PCR) H. influenzae (PCR) Klebsiella aerogenes (PCR) Klebsiella oxytoca PCR Klebsiella pneumoniae List. monocytogenes PCR N. meningitidis (PCR) Proteus species (PCR) Salmonella spp. (PCR) Serratia marcescens PCR Staphylococcus sp PCR Staph aureus (PCR) mecA/C & MREJ Resist Gene mecA/C-Methicil Resis Gene mcr-1 Colistin Res Gene PCR Staph epidermidis (PCR) Staph lugdunensis PCR S. maltophilia (PCR) Streptococcus sp PCR Group A Strep (PCR) Strep agalactiae (PCR) Strep pneumoniae (PCR) P. aeruginosa (PCR) Calvin/B-Vanco Res Genes blaIMP Car res Gene PCR KPC-Carbap Res Gene PCR blaNDM Car Res Gene PCR OXA-48 Carbapenem Resis Gene (PCR) blaVIM Car Res Gene PCR CTX-M Gene Resistance (PCR) PFSH Medical History Retained ureteral stent Bilateral nephrolithiasis BPH loc w urin obs/LUTS Urinary retention Medicare annual wellness visit, subsequent Travel advice encounter Well adult exam Kidney stones Internal hemorrhoids Preventative health care Hyperglycemia Preventative health care BPH (benign prostatic hyperplasia) Colon polyps (~2006) Skin cancer (~2008) Surgical History H/O cystoscopy (10/07/23) History of prostate surgery (10/07/23) Anesthesia History of hernia repair (~2011) Social History marital status: number of children: 2 household members: spouse Smoking Status: Never smoker alcohol intake: former substance use type: does not use caffeine: Yes Type(s) of exercise: walking and other Assessment & Plan Time-Based Coding :: [TOTAL MINUTES] spent with patient and on the chart (including review of chart, obtaining history, exam, reviewing outside data, placing orders, documenting exam and treatment plan, and counseling patient) on [DATE].
--- NOTE | 2024-07-20 13:52 | PM.HP.1 ---
History of Present Illness History of Present Illness Date Patient Seen: 07/20/24 Chief complaint: right flank pain Narrative: From night doctor: 79 years old with PMH of kidney stones, BPH with LUTs, self-catheterizations, presented with renal colic and obstructing distal, Rt ureteral stone of 10 mm. Upon admission turning septic. Treated with IVBFs, Rocephin in the ED, started on Cefepime upon admission. Recent events: Morning lactic acid was up to 7. He was taken to the OR for stenting and developed postoperative hypotension. He was fluid resuscitated with 4 L of fluid and is now maintaining a map of over 65. He was afebrile. Blood cultures were positive for Gram-negative bacillus. A PICC line was placed. Subjective: He has been ill for a couple of days with flank pain on the right. He was a known stay chloride on the left. He denies any dysuria. He feels better after stenting. He denies feeling short of breath or having chest pain. He continues to be hypotensive with a map of under 65. [facility] Medical History Retained ureteral stent Bilateral nephrolithiasis BPH loc w urin obs/LUTS Urinary retention Medicare annual wellness visit, subsequent Travel advice encounter Well adult exam Kidney stones Internal hemorrhoids Preventative health care Hyperglycemia Preventative health care BPH (benign prostatic hyperplasia) Colon polyps (~2006) Skin cancer (~2008) Surgical History H/O cystoscopy (10/07/23) History of prostate surgery (10/07/23) Anesthesia History of hernia repair (~2011) Social History marital status: number of children: 2 household members: spouse Smoking Status: Never smoker alcohol intake: former substance use type: does not use caffeine: Yes Type(s) of exercise: walking and other Meds Home Medications and Allergies Home Medications Medication Instructions Recorded Confirmed Type lactobacillus combination no.9 1 cap PO DAILY 05/13/20 07/20/24 History [Adult 50 Plus Probiotic] cholecalciferol (vitamin D3) 1,000 tab PO .QD 08/15/20 07/20/24 History Allergies Allergy/AdvReac Type Severity Reaction Status Date / Time No Known Drug Allergies Allergy Verified 01/21/24 10:03 Review of Systems Review of Systems Narrative: All else reviewed and otherwise unremarkable except as noted in the history and physical. Exam Vital Signs (past 8 hours): - 07/20/24 05:58 07/20/24 06:20 07/20/24 06:51 Temperature 98.9 F 98.8 F 98.2 F Pulse Rate 116 H Respiratory Rate 22 Blood Pressure 121/67 Pulse Oximetry 95 Oxygen Delivery Method Oxygen Flow Rate 07/20/24 07:30 07/20/24 08:01 07/20/24 09:09 Temperature 99.4 F 98.3 F 99.6 F Pulse Rate 95 H 86 105 H Respiratory Rate 30 H 16 16 Blood Pressure 107/56 L 97/50 L 96/58 L Pulse Oximetry 92 90 L 92 Oxygen Delivery Method Oximask Room Air Oxygen Flow Rate 3 07/20/24 09:14 07/20/24 09:19 07/20/24 09:29 Temperature Pulse Rate 105 H 103 H 106 H Respiratory Rate 20 20 23 Blood Pressure 80/46 L 82/47 L 80/46 L Pulse Oximetry 96 96 93 Oxygen Delivery Method Oximask Oximask Room Air Oxygen Flow Rate 3 3 07/20/24 09:39 07/20/24 10:00 07/20/24 10:14 Temperature 100.5 F H 99.5 F Pulse Rate 101 H 101 H 102 H Respiratory Rate 16 12 20 Blood Pressure 77/44 L 82/50 L 79/50 L Pulse Oximetry 94 94 95 Oxygen Delivery Method Nasal Cannula Room Air Nasal Cannula Oxygen Flow Rate 2 2 07/20/24 10:29 07/20/24 10:44 07/20/24 11:09 Temperature Pulse Rate 104 H 104 H 104 H Respiratory Rate 22 22 22 Blood Pressure 83/51 L 83/48 L 85/55 L Pulse Oximetry 94 94 96 Oxygen Delivery Method Room Air Nasal Cannula Nasal Cannula Oxygen Flow Rate 2 2 07/20/24 11:25 07/20/24 11:25 07/20/24 11:30 Temperature 100.3 F H Pulse Rate 108 H Respiratory Rate Blood Pressure 89/51 L 85/54 L Pulse Oximetry 94 Oxygen Delivery Method Oxygen Flow Rate 07/20/24 11:30 07/20/24 11:42 07/20/24 12:00 Temperature Pulse Rate 103 H 106 H Respiratory Rate 22 24 Blood Pressure Pulse Oximetry 95 94 Oxygen Delivery Method Nasal Cannula Oxygen Flow Rate 07/20/24 12:00 07/20/24 12:30 07/20/24 12:30 Temperature Pulse Rate 104 H Respiratory Rate 25 H Blood Pressure 92/54 L 89/51 L Pulse Oximetry 95 Oxygen Delivery Method Oxygen Flow Rate 07/20/24 13:00 07/20/24 13:00 Temperature Pulse Rate 106 H Respiratory Rate 23 Blood Pressure 91/51 L Pulse Oximetry 95 Oxygen Delivery Method Oxygen Flow Rate Oxygen Delivery Method Nasal Cannula Oxygen Flow Rate 2 Narrative Exam Narrative: NAD, alert and oriented, fluent speech, calm. Normocephalic skull, EOMI, anicteric sclera, symmetric pupils. Oropharynx unremarkable, no droop. Neck supple, midline trachea, no adenopathy. Lungs clear, normal rate and effort. Heart regular, no murmur gallop or rub. Abdomen is soft, non distended and non tender. Extremities are free of edema. Skin is free of rash or lesions. Joints are not swollen or deformed. Judgment appears to be normal. Objective Imaging Chest x-ray: Radiologist's impression: Left-sided PICC with the catheter tip at the lower 3rd of the SVC. No pneumothorax demonstrated. Labs 07/20/24 12:45 07/20/24 12:45 Labs: Laboratory Results - last 24 hr 07/19/24 07/19/24 07/19/24 18:48 19:50 20:15 WBC 13.1 H RBC 5.10 Hgb 15.4 Hct 46.1 MCV 90.5 MCH 30.3 MCHC 33.4 RDW 13.1 Plt Count 211 Neut % (Auto) 88.3 H Lymph % (Auto) 4.9 L [place] % (Auto) 6.7 Eos % (Auto) 0.0 L Baso % (Auto) 0.1 Neut # (Auto) 12302 H Lymph # (Auto) 600 L [place] # (Auto) 900 Eos # (Auto) 0 Baso # (Auto) 0 Sodium 137 Potassium 4.6 Chloride 102 Carbon Dioxide 27 BUN 23 H Creatinine 1.24 Estimated GFR 60 BUN/Creatinine Ratio 18.5 Glucose 151 H Lactate 1.7 Calcium 9.4 Total Bilirubin AST ALT Alkaline Phosphatase Total Protein Albumin Globulin Albumin/Globulin Ratio Urine RBC 0-1/hpf D Urine WBC 30-100/hpf H Ur Squamous Epith Cells 0-1 /hpf Urine Bacteria Many (>30) H Ur Culture Indicated? Specimen cultured Vol Urine Centrifuged 10ml (spun) A.calcoaceticus-baumannii cmplx PCR Bacteroides fragilis Malathi albicans (PCR) Malathi auris (PCR) C. glabrata (PCR) C. krusei (PCR) C. parapsilosis (PCR) C. tropicalis (PCR) C. neoform/gattii (PCR) Enterobacterales (PCR) E. cloacae complex PCR Enterococc faecalis PCR Enterococc faecium PCR E. coli (PCR) H. influenzae (PCR) Klebsiella aerogenes (PCR) Klebsiella oxytoca PCR Klebsiella pneumoniae List. monocytogenes PCR N. meningitidis (PCR) Proteus species (PCR) Salmonella spp. (PCR) Serratia marcescens PCR Staphylococcus sp PCR Staph aureus (PCR) mecA/C & MREJ Resist Gene mecA/C-Methicil Resis Gene mcr-1 Colistin Res Gene PCR Staph epidermidis (PCR) Staph lugdunensis PCR S. maltophilia (PCR) Streptococcus sp PCR Group A Strep (PCR) Strep agalactiae (PCR) Strep pneumoniae (PCR) P. aeruginosa (PCR) Calvin/B-Vanco Res Genes blaIMP Car res Gene PCR KPC-Carbap Res Gene PCR blaNDM Car Res Gene PCR OXA-48 Carbapenem Resis Gene (PCR) blaVIM Car Res Gene PCR CTX-M Gene Resistance (PCR) 07/20/24 07/20/24 07/20/24 04:37 06:30 09:15 WBC 6.0 D RBC 4.69 Hgb 14.3 Hct 42.6 MCV 90.9 MCH 30.5 MCHC 33.6 RDW 13.2 Plt Count 122 L Neut % (Auto) 95.7 H Lymph % (Auto) 3.0 L [place] % (Auto) 1.1 L Eos % (Auto) 0.1 L Baso % (Auto) 0.1 Neut # (Auto) 5700 Lymph # (Auto) 200 L [place] # (Auto) 100 Eos # (Auto) 0 Baso # (Auto) 0 Sodium 137 Potassium 4.3 Chloride 103 Carbon Dioxide 19 L BUN 29 H Creatinine 2.09 H Estimated GFR 32 L BUN/Creatinine Ratio 13.9 Glucose 154 H Lactate 7.5 H* 5.0 H* Calcium 8.6 Total Bilirubin AST ALT Alkaline Phosphatase Total Protein Albumin Globulin Albumin/Globulin Ratio Urine RBC Urine WBC Ur Squamous Epith Cells Urine Bacteria Ur Culture Indicated? Vol Urine Centrifuged A.calcoaceticus-baumannii cmplx PCR Not detected Bacteroides fragilis Not detected Malathi albicans (PCR) Not detected Malathi auris (PCR) Not detected C. glabrata (PCR) Not detected C. krusei (PCR) Not detected C. parapsilosis (PCR) Not detected C. tropicalis (PCR) Not detected C. neoform/gattii (PCR) Not detected Enterobacterales (PCR) Detected E. cloacae complex PCR Not detected Enterococc faecalis PCR Not detected Enterococc faecium PCR Not detected E. coli (PCR) Not detected H. influenzae (PCR) Not detected Klebsiella aerogenes (PCR) Not detected Klebsiella oxytoca PCR Not detected Klebsiella pneumoniae Detected List. monocytogenes PCR Not detected N. meningitidis (PCR) Not detected Proteus species (PCR) Not detected Salmonella spp. (PCR) Not detected Serratia marcescens PCR Not detected Staphylococcus sp PCR Not detected Staph aureus (PCR) Not detected mecA/C & MREJ Resist Gene Not applicable mecA/C-Methicil Resis Gene Not applicable mcr-1 Colistin Res Gene PCR Not detected Staph epidermidis (PCR) Not detected Staph lugdunensis PCR Not detected S. maltophilia (PCR) Not detected Streptococcus sp PCR Not detected Group A Strep (PCR) Not detected Strep agalactiae (PCR) Not detected Strep pneumoniae (PCR) Not detected P. aeruginosa (PCR) Not detected Calvin/B-Vanco Res Genes Not applicable blaIMP Car res Gene PCR Not detected KPC-Carbap Res Gene PCR Not detected blaNDM Car Res Gene PCR Not detected OXA-48 Carbapenem Resis Gene (PCR) Not detected blaVIM Car Res Gene PCR Not detected CTX-M Gene Resistance (PCR) Not detected 07/20/24 12:45 WBC 13.6 H D RBC 4.14 L Hgb 12.6 L Hct 36.8 L MCV 89.1 MCH 30.4 MCHC 34.1 RDW 13.2 Plt Count 100 L Neut % (Auto) Lymph % (Auto) [place] % (Auto) Eos % (Auto) Baso % (Auto) Neut # (Auto) Lymph # (Auto) [place] # (Auto) Eos # (Auto) Baso # (Auto) Sodium 135 L Potassium 3.7 Chloride 104 Carbon Dioxide 22 BUN 32 H Creatinine 2.02 H Estimated GFR 33 L BUN/Creatinine Ratio 15.8 Glucose 124 H Lactate 4.3 H* Calcium 8.2 L Total Bilirubin 1.0 AST 46 ALT 30 Alkaline Phosphatase 59 Total Protein 5.5 L Albumin 3.0 L Globulin 2.5 Albumin/Globulin Ratio 1.2 Urine RBC Urine WBC Ur Squamous Epith Cells Urine Bacteria Ur Culture Indicated? Vol Urine Centrifuged A.calcoaceticus-baumannii cmplx PCR Bacteroides fragilis Malathi albicans (PCR) Malathi auris (PCR) C. glabrata (PCR) C. krusei (PCR) C. parapsilosis (PCR) C. tropicalis (PCR) C. neoform/gattii (PCR) Enterobacterales (PCR) E. cloacae complex PCR Enterococc faecalis PCR Enterococc faecium PCR E. coli (PCR) H. influenzae (PCR) Klebsiella aerogenes (PCR) Klebsiella oxytoca PCR Klebsiella pneumoniae List. monocytogenes PCR N. meningitidis (PCR) Proteus species (PCR) Salmonella spp. (PCR) Serratia marcescens PCR Staphylococcus sp PCR Staph aureus (PCR) mecA/C & MREJ Resist Gene mecA/C-Methicil Resis Gene mcr-1 Colistin Res Gene PCR Staph epidermidis (PCR) Staph lugdunensis PCR S. maltophilia (PCR) Streptococcus sp PCR Group A Strep (PCR) Strep agalactiae (PCR) Strep pneumoniae (PCR) P. aeruginosa (PCR) Calvin/B-Vanco Res Genes blaIMP Car res Gene PCR KPC-Carbap Res Gene PCR blaNDM Car Res Gene PCR OXA-48 Carbapenem Resis Gene (PCR) blaVIM Car Res Gene PCR CTX-M Gene Resistance (PCR) Assessment & Plan Assessment & Plan narrative: 1. Septic shock, new and active. 2. Obstructive pyelonephritis, present on admission and active. 3. Obstructive nephrolithiasis status post stenting this morning, present on admission and improved. This is a 10 mm right ureter stone. 4. Lactic acidosis, new and active. 5. History of staghorn kidney stone, present on admission and active. 6. BPH, present on admission and stable. PLAN: -the patient was fluid resuscitated with 4 L of crystalloid and still had a map that went under 65.-pressure support with norepinephrine as started via a PICC line. -blood cultures are positive for Gram-positive bacillus, continue broad-spectrum antibiotics with cefepime. -monitor renal function and urine output. -trend lactic acidosis, and reassess clinical perfusion status. Full code Anticipate 2 midnights in the hospital, supports inpatient status. He lives in [place] with his , she was his proxy decision maker. Time-Based Coding :: 45 minutes of critical care time spent with patient and on the chart (including review of chart, obtaining history, exam, reviewing outside data, placing orders, documenting exam and treatment plan, and counseling patient) on 07/20. He was fluid resuscitated for lactic acidosis and septic shock and started on vasopressor support. He is high risk for adverse outcomes of his obstructive pyelonephritis. Quality MIPS - Admit I confirm the patient?s Advance Care Plan is present, Code status is documented, Surrogate decision maker is in patient?s record [If Yes, STOP here]: Yes MIPS - Meds 'Current medications' to include all prescriptions, [id number] products, herbals, cannabis/cannabidiol products, and vitamin/mineral/dietary (nutritional) supplements. I have utilized all available resources to obtain, update, or review the patient?s current medications. [If Yes, STOP here]: Yes
[2024-07-20] MEDS: NOREPINEPHRINE BITARTRATE/D5W 4 MG/250 ML PLAST..BAG 18.094 MG IV (14:04)
[2024-07-20 14:24] LABS: Reflexed Lactate in 2 Hours Y
[2024-07-20 15:26] LABS: Lactate 2HR (Lactic Acid Rflx) 3.8 mmol/L (0.7-2.1)
--- NOTE | 2024-07-20 15:49 | CM.DANOTE ---
Addendum entered by MARY Silverman 07/20/24 16:05: Attempted to meet with pt again. resting heavily. per RN, PICC line is for the norepinephrine. likely PO abx at dc and no obvious CM needs. anticipate return home with spouse SUMMER Original Note: B DCP Assessment Note pt is an 79yo M admitted with ureteral stone/UTI., received stent this morning with Dr. Ramsey. Hospitalist/urology following. PCP José Miguel ALLEN and [facility] ROBOTICS TECHNOLOGIST reviewed EMR. per chart/RN report, pt moved to ICU after stent placement due to hypotension/high lactate. UTI/pos blood cultures- septic shock. pt getting a PICC line. unsure if pt will need security incident response engineer IV abx at this time, currently on IV cefepime. likely transition to PO at dc. Per RN report/chart review, pt lives indep with spouse Angelica in [place]. no known hx of HH or SNF. likely no CM needs at dc, will f/u if PT evals concern for mobility post op. per chart review, no recent hx of admissions. ROBOTICS TECHNOLOGIST attempted to meet with pt x3 throughout day, pt either sleeping post op or other medical staff in room providing care. P: anticipate here another few days for IV abx/continue to monitor renal fx. f/u if PT eval needed. anticipate return home with spouse ester and OP f/u when medically stable. will continue to follow for DCP coordination as needed MARY Silverman Discharge Planning/Care Management CM Discharge Assessment Start: 07/20/24 15:48 Freq: Status: Active Protocol: Document 07/20/24 15:48 (Rec: 07/20/24 15:49 [id number]) Discharge Planning Assessment Assigned Automation Mechanic MARY Villatoro DPOA/Assigned Designee Name Angelica spouse Contact Information [phone] Advance Directives? Yes: POLST Advance Directives on File No History Provided By Patient Prior Living Arrangements House Household Members spouse Type of transporation used prior to Drives own vehicle admit Independent with ADL's Yes Is patient alert and oriented? Yes Discharge Plan Home Referrals Initiated None needed Review Status In Process Please Provide Date Initial DC 07/20/24 Assessment Was Performed Next Review Type Continued Stay Review
[2024-07-20] MEDS: ACETAMINOPHEN 325 MG TABLET 650 MG PO (16:53)
[2024-07-20] MEDS: SODIUM CHLORIDE 0.9% 1,000 ML 200 ML IV ×2 (17:30→23:03)
[2024-07-20 17:58] LABS: Lactate (Lactic Acid) 2.9 mmol/L (0.7-2.1)
[2024-07-20 19:16] LABS: Reflexed Lactate in 2 Hours Y
[2024-07-20 19:49] LABS: Lactate 2HR (Lactic Acid Rflx) 2.1 mmol/L (0.7-2.1)
[2024-07-20] MEDS: NOREPINEPHRINE BITARTRATE/D5W 4 MG/250 ML PLAST..BAG 36.188 MG IV (20:18)
[2024-07-21] VITALS (71 sets, daily range): BP systolic 75–126; BP diastolic 43–66; PULSE 64–90; RESP 17–28; TEMP 36.6–37.2; O2SAT 90–96
[2024-07-21] MEDS: SODIUM CHLORIDE 0.9% 1,000 ML 200 ML IV ×2 (04:15→09:41)
[2024-07-21 04:30] LABS: Add Manual Diff / Slide Review NO; Basophils Absolute Auto 0 /uL (0-100); Basophils Percent Auto 0.1 % (0-2); Eosinophils Absolute Auto 0 /uL (0-450); Eosinophils Percent Auto 0.2 % (2-4); Hematocrit 37.6 % (41-53); Hemoglobin 12.7 g/dL (13.5-17.5); Lymphocytes Absolute Auto 600 /uL (1100-4500); Lymphocytes Percent Auto 3.3 % (25-40); Mean Corpuscular HGB Conc 33.8 % (30-36); Mean Corpuscular Hemoglobin 30.2 PG (26-34); Mean Corpuscular Volume 89.4 fL (80-100); Monocytes Absolute Auto 900 /uL (0-900); Monocytes Percent Auto 4.7 % (3-14); Neutrophils Absolute Auto 16700 /uL (1500-7000); Neutrophils Percent Auto 91.7 % (50-75); Platelet Count 90 X10^3/uL (150-400); Red Cell Distribution Width 13.5 % (11.6-14.8); White Blood Cell Count 18.2 X10^3/uL (4.5-11.0)
[2024-07-21 04:34] LABS: Alanine Aminotransferase 25 IU/L (<50); Albumin 2.7 g/dL (3.5-5.0); Alkaline Phosphatase 54 U/L (38-126); Aspartate Aminotransferase 67 IU/L (17-59); BUN Creatinine Ratio 19.7 (6-22); Bilirubin Total 0.8 mg/dL (0.2-1.3); Blood Urea Nitrogen 30 mg/dL (9-20); Calcium 7.9 mg/dL (8.4-10.2); Carbon Dioxide 25 mmol/L (22-32); Chloride 109 mmol/L (98-107); Estimated Glomerular Filt Rate 47 mL/min (>60); Globulin 2.6 g/dL (1.7-4.1); Glucose 134 mg/dL (80-110); HEMOLYSIS < 15 (0-50); Potassium 4.1 mmol/L (3.4-5.1); Sodium 138 mmol/L (137-145); Total Protein 5.3 g/dL (6.3-8.2)
[2024-07-21] MEDS: CEFEPIME 1 GM in SODIUM CHLORIDE 0.9% 100 ML IV (06:07)
--- NOTE | 2024-07-21 06:28 | PC.NURSE ---
Photo Mask Inspector Note-Patient has been drowsy and sleeping most of the night, oriented x3 when awake. Remains on Levophed gtt, decreased to 0.075mcg/kg/min to keep MAP > 65, SR w/ 1st degree AVB, T-max 99.1, SpO2 >93% on 1L NC. Denies pain or nausea. 2450ml cloudy pink/yellow, grade 1 total UOP.
[2024-07-21] MEDS: NOREPINEPHRINE BITARTRATE/D5W 4 MG/250 ML PLAST..BAG 27.141 MG IV (08:25)
[2024-07-21] MEDS: ONDANSETRON 4 MG/2 ML INJ IV (08:25)
--- NOTE | 2024-07-21 12:41 | P.PN_ITS ---
Subjective Subjective Interval history: Chief complaint: Right flank pain secondary to ureteral stone status post stent complicated by sepsis with shock History of present illness: 79 years old with PMH of kidney stones, BPH with LUTs, self-catheterizations, presented with renal colic and obstructing distal, Rt ureteral stone of 10 mm. Upon admission turning septic. Treated with IVBFs, Rocephin in the ED, started on Cefepime upon admission. Hospital course: 07/20: Morning lactic acid was up to 7. He was taken to the OR for stenting and developed postoperative hypotension. He was fluid resuscitated with 4 L of fluid and is now maintaining a map of over 65. He was afebrile. Blood cultures were positive for Gram-negative bacillus. A PICC line was placed. He has been ill for a couple of days with flank pain on the right. He was a known stay chloride on the left. He denies any dysuria. He feels better after stenting. He denies feeling short of breath or having chest pain. He continues to be hypotensive with a map of under 65. 07/21: Patient still feeling somewhat weak but better than yesterday pressors for titrated down but is still remaining with IV fluid running as well visit. Patient has good urine output. No chills or fevers overnight hepatitis improved he is alert and cogent exam is benign Blood culture shows bacteremia with Klebsiella 2/2 and the same in the urine culture and sensitivity as below antibiotics de-escalated to ceftriaxone for a total of 3 days after negative blood culture Review of systems: No headache diplopia No chest pain shortness for breath No nausea vomiting diarrhea No paresthesia paresis Physical exam: Alert cogent elderly male HEENT unremarkable new line neck no JVD Heart rate rhythm regular Lungs clear apices to bases Abdomen nontender bowel sounds present Extremities no edema Neurologic nonfocal Microbiology results: 1. Klebsiella pneumoniae M.I.C. RX --------- --- * Amikacin <=2 S * Amoxicillin/Clavulanate <=2 S * Ampicillin >=32 R * Ampicillin/Sulbactam 4 S * Aztreonam <=1 S * Cefepime <=1 S * Cefotaxime <=1 S * Cefotetan <=4 S * Cefoxitin <=4 S * Ceftazidime <=1 S * Ceftriaxone <=1 S * Cefuroxime 2 S * Ciprofloxacin <=0.25 S * Ertapenem <=0.5 S * Gentamicin <=1 S * Imipenem <=0.25 S * Levofloxacin 0.25 S * Meropenem <=0.25 S * Tetracycline <=1 S * Tobramycin <=1 S * Trimethoprim/Sulfamethoxazole <=20 S * Piperacillin/Tazobactam 8 S Exam Vital Signs (past 8 hours): - 07/21/24 05:00 07/21/24 05:00 07/21/24 05:30 Temperature Pulse Rate 79 Respiratory Rate 19 Blood Pressure 110/55 L 109/57 L Pulse Oximetry 94 Oxygen Delivery Method Oxygen Flow Rate 07/21/24 05:30 07/21/24 06:00 07/21/24 06:00 Temperature Pulse Rate 80 83 Respiratory Rate 17 21 Blood Pressure 110/59 L Pulse Oximetry 94 93 Oxygen Delivery Method Oxygen Flow Rate 2 07/21/24 07:00 07/21/24 07:00 07/21/24 07:30 Temperature Pulse Rate 89 Respiratory Rate 21 Blood Pressure 96/53 L 108/57 L Pulse Oximetry 93 Oxygen Delivery Method Oxygen Flow Rate 07/21/24 07:30 07/21/24 08:00 07/21/24 08:00 Temperature Pulse Rate 80 81 Respiratory Rate 17 18 Blood Pressure 108/57 L Pulse Oximetry 92 92 Oxygen Delivery Method Oxygen Flow Rate 07/21/24 08:30 07/21/24 08:30 07/21/24 08:30 Temperature Pulse Rate 90 Respiratory Rate 24 Blood Pressure 109/58 L Pulse Oximetry 91 Oxygen Delivery Method Nasal Cannula Oxygen Flow Rate 1 07/21/24 09:00 07/21/24 09:00 07/21/24 09:30 Temperature Pulse Rate 84 80 Respiratory Rate 19 18 Blood Pressure 112/58 L Pulse Oximetry 93 92 Oxygen Delivery Method Oxygen Flow Rate 1 1 07/21/24 09:30 07/21/24 10:00 07/21/24 10:00 Temperature Pulse Rate 83 Respiratory Rate 22 Blood Pressure 111/58 L 104/56 L Pulse Oximetry 94 Oxygen Delivery Method Oxygen Flow Rate 1 07/21/24 10:30 07/21/24 10:30 07/21/24 10:45 Temperature Pulse Rate 82 85 Respiratory Rate 19 22 Blood Pressure 105/55 L Pulse Oximetry 93 94 Oxygen Delivery Method Oxygen Flow Rate 1 1 07/21/24 11:00 07/21/24 11:00 07/21/24 11:15 Temperature Pulse Rate 79 Respiratory Rate 18 Blood Pressure 92/51 L 95/53 L Pulse Oximetry 93 Oxygen Delivery Method Oxygen Flow Rate 1 07/21/24 11:15 07/21/24 11:30 07/21/24 11:30 Temperature Pulse Rate 78 79 Respiratory Rate 19 24 Blood Pressure 93/50 L Pulse Oximetry 94 94 Oxygen Delivery Method Oxygen Flow Rate 1 07/21/24 11:45 07/21/24 11:45 07/21/24 12:00 Temperature Pulse Rate 78 Respiratory Rate 19 Blood Pressure 96/54 L 99/54 L Pulse Oximetry 93 Oxygen Delivery Method Oxygen Flow Rate 07/21/24 12:00 07/21/24 12:00 07/21/24 12:15 Temperature 97.9 F Pulse Rate 77 Respiratory Rate 20 Blood Pressure 102/58 L Pulse Oximetry 94 Oxygen Delivery Method Oxygen Flow Rate 07/21/24 12:15 07/21/24 12:30 07/21/24 12:30 Temperature Pulse Rate 74 78 Respiratory Rate 22 18 Blood Pressure 89/51 L Pulse Oximetry 95 94 Oxygen Delivery Method Oxygen Flow Rate 1 1 Oxygen Delivery Method Nasal Cannula Oxygen Flow Rate 1 Objective Labs 07/21/24 04:10 07/21/24 04:10 Labs: Laboratory Results - last 24 hr 07/20/24 07/20/24 07/20/24 12:45 14:50 17:37 WBC 13.6 H D RBC 4.14 L Hgb 12.6 L Hct 36.8 L MCV 89.1 MCH 30.4 MCHC 34.1 RDW 13.2 Plt Count 100 L Neut % (Auto) Lymph % (Auto) [place] % (Auto) Eos % (Auto) Baso % (Auto) Neut # (Auto) Lymph # (Auto) [place] # (Auto) Eos # (Auto) Baso # (Auto) Sodium 135 L Potassium 3.7 Chloride 104 Carbon Dioxide 22 BUN 32 H Creatinine 2.02 H Estimated GFR 33 L BUN/Creatinine Ratio 15.8 Glucose 124 H Lactate 4.3 H* 3.8 H 2.9 H Calcium 8.2 L Total Bilirubin 1.0 AST 46 ALT 30 Alkaline Phosphatase 59 Total Protein 5.5 L Albumin 3.0 L Globulin 2.5 Albumin/Globulin Ratio 1.2 03/17/25 03/18/25 19:27 04:10 WBC 18.2 H RBC 4.20 L Hgb 12.7 L Hct 37.6 L MCV 89.4 MCH 30.2 MCHC 33.8 RDW 13.5 Plt Count 90 L Neut % (Auto) 91.7 H Lymph % (Auto) 3.3 L [place] % (Auto) 4.7 Eos % (Auto) 0.2 L Baso % (Auto) 0.1 Neut # (Auto) 61633 H Lymph # (Auto) 600 L [place] # (Auto) 900 Eos # (Auto) 0 Baso # (Auto) 0 Sodium 138 Potassium 4.1 Chloride 109 H Carbon Dioxide 25 BUN 30 H Creatinine 1.52 H Estimated GFR 47 L BUN/Creatinine Ratio 19.7 Glucose 134 H Lactate 2.1 Calcium 7.9 L Total Bilirubin 0.8 AST 67 H ALT 25 Alkaline Phosphatase 54 Total Protein 5.3 L Albumin 2.7 L Globulin 2.6 Albumin/Globulin Ratio 1.0 PFSH Medical History Retained ureteral stent Bilateral nephrolithiasis BPH loc w urin obs/LUTS Urinary retention Medicare annual wellness visit, subsequent Travel advice encounter Well adult exam Kidney stones Internal hemorrhoids Preventative health care Hyperglycemia Preventative health care BPH (benign prostatic hyperplasia) Colon polyps (~2006) Skin cancer (~2008) Surgical History H/O cystoscopy (10/07/23) History of prostate surgery (10/07/23) Anesthesia History of hernia repair (~2011) Social History marital status: number of children: 2 household members: spouse Smoking Status: Never smoker alcohol intake: former substance use type: does not use caffeine: Yes Type(s) of exercise: walking and other Assessment & Plan Assessment & Plan narrative: 1. Septic shock, secondary to Klebsiella with bacteremia -continue ceftriaxone for which this is sensitive -Wean off pressors -repeat blood cultures in 24 hours -at least 72 hours of IV ceftriaxone after negative blood culture 2. Obstructive pyelonephritis, present on admission and active. 3. Obstructive nephrolithiasis status post stenting this morning, present on admission and improved. This is a 10 mm right ureter stone. 4. Lactic acidosis, improved after hydration 5. History of staghorn kidney stone, present on admission and active. To follow-up at tertiary center 6. BPH, present on admission and stable. Time-Based Coding :: 35 minutes of critical care time spent with patient and on the chart (including review of chart, obtaining history, exam, reviewing outside data, placing orders, documenting exam and treatment plan, and counseling patient) on 07/20. He was fluid resuscitated for lactic acidosis and septic shock and started on vasopressor support. He is high risk for adverse outcomes of his obstructive pyelonephritis. Time-Based Coding :: [TOTAL MINUTES] spent with patient and on the chart (including review of chart, obtaining history, exam, reviewing outside data, placing orders, documenting exam and treatment plan, and counseling patient) on [DATE].
--- NOTE | 2024-07-21 15:27 | PC.NURSE ---
Addendum entered by Nirali Mathew R.N. 07/21/24 18:11: Pt up to chair 1 person assist, tolerated well, denied dizziness. On RA with SpO2 93%. Original Note: Day Shift Note Patient alert and oriented x3, fatigued. Denies pain. Poor appetite, pt reported nausea with breakfast with dry heaves, zofran administered per emar with good effect. Pt ate some sips of smoothie for lunch and tolerated well. Levophed gtt continues, titrating down as able to keep MAP greater than 65. SR in the 80s. On 1L NC with SpO2 low 90s, desats to upper 80s when on RA, encouraged to cough and deep breathe. Guevara catheter in place and draining slightly cloudy grade 1 urine. Call light within reach, using appropriately to make needs known.
[2024-07-21] MEDS: SODIUM CHLORIDE 0.9% 1,000 ML 100 ML IV (16:29)
[2024-07-21] MEDS: cefTRIAXone 2,000 MG in SODIUM CHLORIDE 0.9% 100 ML 200 MG IV (16:39)
--- NOTE | 2024-07-21 17:20 | PM.CN.IH.1 ---
History of Present Illness Consult details Date Patient Seen: 07/21/24 Time Patient Seen: 17:21 Chief complaint: right flank pain Narrative: 79 y/o M noted to have a 10mm right distal ureterolith w/ resultant upstream severe hydroureteronephrosis and an active urinary tract infection who is now s/p a cystoscopy w/ urgent right ureteral stent placement on 20 Jul 2024. He admits that he is feeling better today, not quite as weak, and is able to converse easier. He still admits that the colors on the hernandez and ceilings change in intensity. His WBC increased to 18.2 today, his sCr decreased to 1.52 and his UCx and BCx's are positive for Klebsiella Pneumoniae that is resistant only to Nitrofurantoin and Ampicillin. He is currently being treated w/ Rocephin. Meds Home Medications and Allergies Home Medications Medication Instructions Recorded Confirmed Type lactobacillus combination no.9 1 cap PO DAILY 05/13/20 07/20/24 History [Adult 50 Plus Probiotic] cholecalciferol (vitamin D3) 1,000 tab PO .QD 08/15/20 07/20/24 History Allergies Allergy/AdvReac Type Severity Reaction Status Date / Time No Known Drug Allergies Allergy Verified 01/21/24 10:03 Review of Systems Review of Systems Narrative: CONSTITUTIONAL: Denies weight loss, fevers, chills. HEENT: Denies change in vision, hearing. RESP: Denies SOB, cough. CV: Denies palpations, CP. GI: Denies abdominal pain, nausea, vomiting, diarrhea. : Denies dysuria, hematuria, inability to void. MSK: Denies myalgia, joint pain. SKIN: Denies rash, pruritus. NEURO: Denies headache, syncope. PSYCH: Denies recent change in mood, anxiety, depression. Exam Vital Signs (past 8 hours): - 07/21/24 09:30 07/21/24 09:30 07/21/24 10:00 Temperature Pulse Rate 80 Respiratory Rate 18 Blood Pressure 111/58 L 104/56 L Pulse Oximetry 92 Oxygen Delivery Method Oxygen Flow Rate 1 07/21/24 10:00 07/21/24 10:30 07/21/24 10:30 Temperature Pulse Rate 83 82 Respiratory Rate 22 19 Blood Pressure 105/55 L Pulse Oximetry 94 93 Oxygen Delivery Method Oxygen Flow Rate 1 1 07/21/24 10:45 07/21/24 11:00 07/21/24 11:00 Temperature Pulse Rate 85 79 Respiratory Rate 22 18 Blood Pressure 92/51 L Pulse Oximetry 94 93 Oxygen Delivery Method Oxygen Flow Rate 1 1 07/21/24 11:15 07/21/24 11:15 07/21/24 11:30 Temperature Pulse Rate 78 Respiratory Rate 19 Blood Pressure 95/53 L 93/50 L Pulse Oximetry 94 Oxygen Delivery Method Oxygen Flow Rate 1 07/21/24 11:30 07/21/24 11:45 07/21/24 11:45 Temperature Pulse Rate 79 78 Respiratory Rate 24 19 Blood Pressure 96/54 L Pulse Oximetry 94 93 Oxygen Delivery Method Oxygen Flow Rate 07/21/24 12:00 07/21/24 12:00 07/21/24 12:00 Temperature 97.9 F Pulse Rate 77 Respiratory Rate 20 Blood Pressure 99/54 L Pulse Oximetry 94 Oxygen Delivery Method Oxygen Flow Rate 07/21/24 12:15 07/21/24 12:15 07/21/24 12:30 Temperature Pulse Rate 74 Respiratory Rate 22 Blood Pressure 102/58 L 89/51 L Pulse Oximetry 95 Oxygen Delivery Method Oxygen Flow Rate 1 07/21/24 12:30 07/21/24 12:30 07/21/24 12:45 Temperature Pulse Rate 78 Respiratory Rate 18 Blood Pressure 84/50 L Pulse Oximetry 94 Oxygen Delivery Method Nasal Cannula Oxygen Flow Rate 1 07/21/24 12:45 07/21/24 13:00 07/21/24 13:00 Temperature Pulse Rate 79 80 Respiratory Rate 17 19 Blood Pressure 98/57 L Pulse Oximetry 94 94 Oxygen Delivery Method Oxygen Flow Rate 07/21/24 13:15 07/21/24 13:15 07/21/24 13:30 Temperature Pulse Rate 83 80 Respiratory Rate 19 21 Blood Pressure 99/56 L Pulse Oximetry 95 95 Oxygen Delivery Method Oxygen Flow Rate 07/21/24 13:30 07/21/24 13:32 07/21/24 13:32 Temperature Pulse Rate 82 Respiratory Rate 20 Blood Pressure 81/45 L 75/43 L Pulse Oximetry 96 Oxygen Delivery Method Oxygen Flow Rate 07/21/24 13:33 07/21/24 13:33 07/21/24 13:45 Temperature Pulse Rate 84 80 Respiratory Rate 22 20 Blood Pressure 86/50 L Pulse Oximetry 95 96 Oxygen Delivery Method Oxygen Flow Rate 07/21/24 13:45 07/21/24 14:00 07/21/24 14:00 Temperature Pulse Rate 85 Respiratory Rate 20 Blood Pressure 97/56 L 109/53 L Pulse Oximetry 96 Oxygen Delivery Method Oxygen Flow Rate 07/21/24 15:00 07/21/24 15:00 07/21/24 15:15 Temperature Pulse Rate 85 Respiratory Rate 20 Blood Pressure 108/58 L 108/58 L Pulse Oximetry 93 Oxygen Delivery Method Oxygen Flow Rate 07/21/24 15:15 07/21/24 15:47 Temperature 99.0 F Pulse Rate 84 Respiratory Rate 18 Blood Pressure Pulse Oximetry 93 Oxygen Delivery Method Oxygen Flow Rate Oxygen Delivery Method Nasal Cannula Oxygen Flow Rate 1 Narrative Exam Narrative: GEN: Alert and oriented X3. No acute distress. Well-nourished. EYES: PERRLA, EOMI. HENT: Moist mucus membranes, no scleral icterus, normal neck ROM. RESP: Unlabored breathing, equal rise and fall of chest bilaterally, no cyanosis appreciated. CV: No peripheral edema, unremarkable heart rate. ABD: Soft, non-tender, non-distended, no palpable masses. : [place] secured and draining clear yellow urine. EXT: No edema, clubbing or cyanosis. SKIN: No rashes or lesions. NEURO: No focal neurologic deficits, CN II-XII grossly intact. PSYCH: Cooperative, appropriate mood and affect. Objective Labs 07/21/24 04:10 07/21/24 04:10 Labs: Laboratory Results - last 24 hr 07/20/24 07/20/24 07/21/24 17:37 19:27 04:10 WBC 18.2 H RBC 4.20 L Hgb 12.7 L Hct 37.6 L MCV 89.4 MCH 30.2 MCHC 33.8 RDW 13.5 Plt Count 90 L Neut % (Auto) 91.7 H Lymph % (Auto) 3.3 L [place] % (Auto) 4.7 Eos % (Auto) 0.2 L Baso % (Auto) 0.1 Neut # (Auto) 68138 H Lymph # (Auto) 600 L [place] # (Auto) 900 Eos # (Auto) 0 Baso # (Auto) 0 Sodium 138 Potassium 4.1 Chloride 109 H Carbon Dioxide 25 BUN 30 H Creatinine 1.52 H Estimated GFR 47 L BUN/Creatinine Ratio 19.7 Glucose 134 H Lactate 2.9 H 2.1 Calcium 7.9 L Total Bilirubin 0.8 AST 67 H ALT 25 Alkaline Phosphatase 54 Total Protein 5.3 L Albumin 2.7 L Globulin 2.6 Albumin/Globulin Ratio 1.0 PFSH Medical History Retained ureteral stent Bilateral nephrolithiasis BPH loc w urin obs/LUTS Urinary retention Medicare annual wellness visit, subsequent Travel advice encounter Well adult exam Kidney stones Internal hemorrhoids Preventative health care Hyperglycemia Preventative health care BPH (benign prostatic hyperplasia) Colon polyps (~2006) Skin cancer (~2008) Surgical History H/O cystoscopy (10/07/23) History of prostate surgery (10/07/23) Anesthesia History of hernia repair (~2011) Social History marital status: number of children: 2 household members: spouse Tobacco & Substance Use Smoking Status: Never smoker alcohol intake: former substance use type: does not use Diet and Exercise caffeine: Yes Type(s) of exercise: walking and other Assessment & Plan Assessment and plan (1) Ureteral calculus, right: Status: Acute Plan: 79 y/o M noted to have a 10mm right distal ureterolith w/ resultant upstream severe hydroureteronephrosis and an active urinary tract infection who is now s/p a cystoscopy w/ urgent right ureteral stent placement on 20 Jul 2024. He admits that he is feeling better today, not quite as weak, and is able to converse easier. He still admits that the colors on the hernandez and ceilings change in intensity. His WBC increased to 18.2 today, his sCr decreased to 1.52 and his UCx and BCx's are positive for Klebsiella Pneumoniae that is resistant only to Nitrofurantoin and Ampicillin. He is currently being treated w/ Rocephin. - Appreciate assistance of hospitalist team in management of this patient. - DO NOT REMOVE SALDAÑA CATHETER WITHOUT SPEAKING TO LEONARDA - Recommend tailoring to oral directed UCx and BCx antibiotics when clinically feasible - Urology will continue to follow while an inpatient - Will require definitive stone management as an outpatient (2) UTI (urinary tract infection): Qualifiers: Urinary tract infection type: site unspecified Hematuria presence: without hematuria Qualified Code(s): N39.0 - Urinary tract infection, site not specified Status: Acute Plan: Please see plan above Time-Based Coding :: [TOTAL MINUTES] spent with patient and on the chart (including review of chart, obtaining history, exam, reviewing outside data, placing orders, documenting exam and treatment plan, and counseling patient) on [DATE]. PROFEE Charge Codes Inpatient or Observation consultation: 36199
[2024-07-21] MEDS: NOREPINEPHRINE BITARTRATE/D5W 4 MG/250 ML PLAST..BAG 9.047 MG IV (23:33)
[2024-07-22] VITALS (41 sets, daily range): BP systolic 104–149; BP diastolic 53–82; PULSE 61–80; RESP 15–24; TEMP 36.1–37; O2SAT 90–95
[2024-07-22] MEDS: SODIUM CHLORIDE 0.9% 1,000 ML 100 ML IV (02:41)
[2024-07-22 08:43] LABS: Add Manual Diff / Slide Review NO; Basophils Absolute Auto 0 /uL (0-100); Basophils Percent Auto 0.1 % (0-2); Eosinophils Absolute Auto 0 /uL (0-450); Eosinophils Percent Auto 0.2 % (2-4); Hematocrit 36.5 % (41-53); Hemoglobin 12.3 g/dL (13.5-17.5); Lymphocytes Absolute Auto 700 /uL (1100-4500); Lymphocytes Percent Auto 5.5 % (25-40); Mean Corpuscular HGB Conc 33.8 % (30-36); Mean Corpuscular Hemoglobin 30.4 PG (26-34); Mean Corpuscular Volume 89.9 fL (80-100); Monocytes Absolute Auto 800 /uL (0-900); Monocytes Percent Auto 5.7 % (3-14); Neutrophils Absolute Auto 12100 /uL (1500-7000); Neutrophils Percent Auto 88.5 % (50-75); Platelet Count 77 X10^3/uL (150-400); Red Blood Cell Count 4.06 X10^6/uL (4.5-5.9); Red Cell Distribution Width 13.3 % (11.6-14.8); White Blood Cell Count 13.7 X10^3/uL (4.5-11.0)
[2024-07-22] MEDS: CHOLECALCIFEROL (VITAMIN D3) 1,000 UNIT TABLET 1000 UNIT PO (09:00)
[2024-07-22 09:04] LABS: NT-proBNP (BNP-Adult 18+) 2960 pg/mL (<450)
--- NOTE | 2024-07-22 13:15 | PM.PN.1 ---
Subjective Subjective Date Patient Seen: 07/22/24 Time Patient Seen: 13:15 Interval history: 79 years old with PMH of kidney stones, BPH with LUTs, self-catheterizations, presented with renal colic and obstructing distal, Rt ureteral stone of 10 mm. Upon admission turning septic. Treated with IVBFs, Rocephin in the ED, started on Cefepime upon admission. Hospital course: 07/20: Morning lactic acid was up to 7. He was taken to the OR for stenting and developed postoperative hypotension. He was fluid resuscitated with 4 L of fluid and is now maintaining a map of over 65. He was afebrile. Blood cultures were positive for Gram-negative bacillus. A PICC line was placed. He has been ill for a couple of days with flank pain on the right. He was a known stay chloride on the left. He denies any dysuria. He feels better after stenting. He denies feeling short of breath or having chest pain. He continues to be hypotensive with a map of under 65. 07/21: Patient still feeling somewhat weak but better than yesterday pressors for titrated down but is still remaining with IV fluid running as well visit. Patient has good urine output. No chills or fevers overnight hepatitis improved he is alert and cogent exam is benign Blood culture shows bacteremia with Klebsiella 2/2 and the same in the urine culture and sensitivity as below antibiotics de-escalated to ceftriaxone for a total of 3 days after negative blood culture 07/22: Patient feeling better but not completely to baseline yet weaning off norepinephrine with some bradycardia Blood cultures will be repeated today Per urology Guevara catheter to in place Review of systems: No headache diplopia No chest pain shortness for breath No nausea vomiting diarrhea No paresthesia paresis Physical exam: Alert cogent elderly male HEENT unremarkable new line neck no JVD Heart rate rhythm regular Lungs clear apices to bases Abdomen nontender bowel sounds present Extremities no edema Neurologic nonfocal Microbiology results: 1. Klebsiella pneumoniae M.I.C. RX --------- --- * Amikacin <=2 S * Amoxicillin/Clavulanate <=2 S * Ampicillin >=32 R * Ampicillin/Sulbactam 4 S * Aztreonam <=1 S * Cefepime <=1 S * Cefotaxime <=1 S * Cefotetan <=4 S * Cefoxitin <=4 S * Ceftazidime <=1 S * Ceftriaxone <=1 S * Cefuroxime 2 S * Ciprofloxacin <=0.25 S * Ertapenem <=0.5 S * Gentamicin <=1 S * Imipenem <=0.25 S * Levofloxacin 0.25 S * Meropenem <=0.25 S * Tetracycline <=1 S * Tobramycin <=1 S * Trimethoprim/Sulfamethoxazole <=20 S * Piperacillin/Tazobactam 8 S Exam Vital Signs (past 8 hours): - 07/22/24 05:30 07/22/24 05:30 07/22/24 06:00 Temperature Pulse Rate 73 Respiratory Rate 19 Blood Pressure 128/69 104/59 L Pulse Oximetry 90 L Oxygen Delivery Method Oxygen Flow Rate 07/22/24 06:00 07/22/24 06:30 07/22/24 06:30 Temperature Pulse Rate 68 70 Respiratory Rate 17 20 Blood Pressure 125/64 Pulse Oximetry 90 L 93 Oxygen Delivery Method Oxygen Flow Rate 0 07/22/24 07:00 07/22/24 07:00 07/22/24 07:30 Temperature Pulse Rate 68 Respiratory Rate 19 Blood Pressure 112/53 L 143/74 H Pulse Oximetry 91 Oxygen Delivery Method Oxygen Flow Rate 07/22/24 07:30 07/22/24 08:00 07/22/24 08:00 Temperature Pulse Rate 74 68 Respiratory Rate 19 17 Blood Pressure 141/76 H Pulse Oximetry 92 93 Oxygen Delivery Method Oxygen Flow Rate 07/22/24 08:14 07/22/24 08:14 07/22/24 08:17 Temperature Pulse Rate 71 Respiratory Rate 22 Blood Pressure 137/74 132/63 Pulse Oximetry Oxygen Delivery Method Oxygen Flow Rate 07/22/24 08:17 07/22/24 08:19 07/22/24 08:19 Temperature Pulse Rate 73 72 Respiratory Rate 23 22 Blood Pressure 131/64 Pulse Oximetry Oxygen Delivery Method Oxygen Flow Rate 07/22/24 08:30 07/22/24 08:30 07/22/24 09:00 Temperature Pulse Rate 64 Respiratory Rate 19 Blood Pressure 119/63 Pulse Oximetry 94 Oxygen Delivery Method Room Air Oxygen Flow Rate 07/22/24 09:00 07/22/24 09:01 07/22/24 09:01 Temperature Pulse Rate 64 64 Respiratory Rate 21 23 Blood Pressure 112/60 Pulse Oximetry 93 93 Oxygen Delivery Method Oxygen Flow Rate 07/22/24 09:30 07/22/24 09:30 07/22/24 09:44 Temperature 98.0 F Pulse Rate 66 Respiratory Rate 19 Blood Pressure 115/62 Pulse Oximetry 93 Oxygen Delivery Method Oxygen Flow Rate 07/22/24 09:51 07/22/24 09:51 07/22/24 09:52 Temperature Pulse Rate 73 Respiratory Rate 20 Blood Pressure 113/61 120/68 Pulse Oximetry 94 Oxygen Delivery Method Oxygen Flow Rate 07/22/24 09:52 07/22/24 09:59 07/22/24 09:59 Temperature Pulse Rate 69 67 Respiratory Rate 24 22 Blood Pressure 123/71 Pulse Oximetry 94 95 Oxygen Delivery Method Oxygen Flow Rate 07/22/24 10:00 07/22/24 10:00 07/22/24 10:30 Temperature Pulse Rate 63 Respiratory Rate 21 Blood Pressure 125/63 124/66 Pulse Oximetry 95 Oxygen Delivery Method Oxygen Flow Rate 07/22/24 10:30 07/22/24 11:00 07/22/24 11:00 Temperature Pulse Rate 61 62 Respiratory Rate 17 18 Blood Pressure 122/67 Pulse Oximetry 92 95 Oxygen Delivery Method Oxygen Flow Rate 07/22/24 11:30 07/22/24 11:31 07/22/24 11:31 Temperature Pulse Rate 64 62 Respiratory Rate 17 16 Blood Pressure 140/74 Pulse Oximetry 94 95 Oxygen Delivery Method Oxygen Flow Rate 07/22/24 12:00 07/22/24 12:00 Temperature Pulse Rate 68 Respiratory Rate 18 Blood Pressure 149/82 H Pulse Oximetry 94 Oxygen Delivery Method Oxygen Flow Rate Oxygen Delivery Method Room Air Oxygen Flow Rate 0 Objective Labs 07/22/24 08:31 07/21/24 04:10 Labs: Laboratory Results - last 24 hr 07/22/24 08:31 WBC 13.7 H RBC 4.06 L Hgb 12.3 L Hct 36.5 L MCV 89.9 MCH 30.4 MCHC 33.8 RDW 13.3 Plt Count 77 L Neut % (Auto) 88.5 H Lymph % (Auto) 5.5 L Gibson % (Auto) 5.7 Eos % (Auto) 0.2 L Baso % (Auto) 0.1 Neut # (Auto) 43616 H Lymph # (Auto) 700 L Gibson # (Auto) 800 Eos # (Auto) 0 Baso # (Auto) 0 NT-Pro-B Natriuret Pep 2960 H PFSH Medical History Retained ureteral stent Bilateral nephrolithiasis BPH loc w urin obs/LUTS Urinary retention Medicare annual wellness visit, subsequent Travel advice encounter Well adult exam Kidney stones Internal hemorrhoids Preventative health care Hyperglycemia Preventative health care BPH (benign prostatic hyperplasia) Colon polyps (~2006) Skin cancer (~2008) Surgical History H/O cystoscopy (10/07/23) History of prostate surgery (10/07/23) Anesthesia History of hernia repair (~2011) Social History marital status: number of children: 2 household members: spouse Smoking Status: Never smoker alcohol intake: former substance use type: does not use caffeine: Yes Type(s) of exercise: walking and other Assessment & Plan Assessment & Plan narrative: 1. Septic shock, secondary to Klebsiella with bacteremia -continue ceftriaxone for which this is sensitive -Wean off pressors -repeat blood cultures today -at least 72 hours of IV ceftriaxone after negative blood culture 2. Obstructive pyelonephritis, present on admission and active. 3. Obstructive nephrolithiasis status post stenting this morning, present on admission and improved. This is a 10 mm right ureter stone. 4. Lactic acidosis, improved after hydration 5. History of staghorn kidney stone, present on admission and active. To follow-up at tertiary center 6. BPH, present on admission and stable. Time-Based Coding :: [35 minutes] spent with patient and on the chart (including review of chart, obtaining history, exam, reviewing outside data, placing orders, documenting exam and treatment plan, and counseling patient) on [07/22/2024].
--- NOTE | 2024-07-22 16:12 | PM.CN.IH.1 ---
History of Present Illness Consult details Date Patient Seen: 07/22/24 Time Patient Seen: 16:12 Chief complaint: right flank pain Narrative: 79 y/o M noted to have a 10mm right distal ureterolith w/ resultant upstream severe hydroureteronephrosis and an active urinary tract infection who is now s/p a cystoscopy w/ urgent right ureteral stent placement on 20 Jul 2024. He admits that he is feeling better today, not quite as weak, and is able to converse easier. His WBC downtrended to 13.7 today and his UCx and BCx's are positive for Klebsiella Pneumoniae that is resistant only to Nitrofurantoin and Ampicillin. He is currently being treated w/ Rocephin. Meds Home Medications and Allergies Home Medications Medication Instructions Recorded Confirmed Type lactobacillus combination no.9 1 cap PO DAILY 05/13/20 07/20/24 History [Adult 50 Plus Probiotic] cholecalciferol (vitamin D3) 1,000 tab PO .QD 08/15/20 07/20/24 History Allergies Allergy/AdvReac Type Severity Reaction Status Date / Time No Known Drug Allergies Allergy Verified 01/21/24 10:03 Review of Systems Review of Systems Narrative: CONSTITUTIONAL: Denies weight loss, fevers, chills. HEENT: Denies change in vision, hearing. RESP: Denies SOB, cough. CV: Denies palpations, CP. GI: Denies abdominal pain, nausea, vomiting, diarrhea. MSK: Denies myalgia, joint pain. SKIN: Denies rash, pruritus. NEURO: Denies headache, syncope. PSYCH: Denies recent change in mood, anxiety, depression. Exam Vital Signs (past 8 hours): - 07/22/24 08:14 07/22/24 08:14 07/22/24 08:17 Temperature Pulse Rate 71 Respiratory Rate 22 Blood Pressure 137/74 132/63 Pulse Oximetry Oxygen Delivery Method 07/22/24 08:17 07/22/24 08:19 07/22/24 08:19 Temperature Pulse Rate 73 72 Respiratory Rate 23 22 Blood Pressure 131/64 Pulse Oximetry Oxygen Delivery Method 07/22/24 08:30 07/22/24 08:30 07/22/24 09:00 Temperature Pulse Rate 64 Respiratory Rate 19 Blood Pressure 119/63 Pulse Oximetry 94 Oxygen Delivery Method Room Air 07/22/24 09:00 07/22/24 09:01 07/22/24 09:01 Temperature Pulse Rate 64 64 Respiratory Rate 21 23 Blood Pressure 112/60 Pulse Oximetry 93 93 Oxygen Delivery Method 07/22/24 09:30 07/22/24 09:30 07/22/24 09:44 Temperature 98.0 F Pulse Rate 66 Respiratory Rate 19 Blood Pressure 115/62 Pulse Oximetry 93 Oxygen Delivery Method 07/22/24 09:51 07/22/24 09:51 07/22/24 09:52 Temperature Pulse Rate 73 Respiratory Rate 20 Blood Pressure 113/61 120/68 Pulse Oximetry 94 Oxygen Delivery Method 07/22/24 09:52 07/22/24 09:59 07/22/24 09:59 Temperature Pulse Rate 69 67 Respiratory Rate 24 22 Blood Pressure 123/71 Pulse Oximetry 94 95 Oxygen Delivery Method 07/22/24 10:00 07/22/24 10:00 07/22/24 10:30 Temperature Pulse Rate 63 Respiratory Rate 21 Blood Pressure 125/63 124/66 Pulse Oximetry 95 Oxygen Delivery Method 07/22/24 10:30 07/22/24 11:00 07/22/24 11:00 Temperature Pulse Rate 61 62 Respiratory Rate 17 18 Blood Pressure 122/67 Pulse Oximetry 92 95 Oxygen Delivery Method 07/22/24 11:30 07/22/24 11:31 07/22/24 11:31 Temperature Pulse Rate 64 62 Respiratory Rate 17 16 Blood Pressure 140/74 Pulse Oximetry 94 95 Oxygen Delivery Method 07/22/24 12:00 07/22/24 12:00 07/22/24 12:30 Temperature Pulse Rate 68 71 Respiratory Rate 18 20 Blood Pressure 149/82 H Pulse Oximetry 94 94 Oxygen Delivery Method 07/22/24 12:30 07/22/24 13:00 07/22/24 13:00 Temperature 98.3 F Pulse Rate Respiratory Rate Blood Pressure 145/80 H Pulse Oximetry Oxygen Delivery Method Room Air 07/22/24 13:00 07/22/24 13:00 07/22/24 13:30 Temperature Pulse Rate 68 Respiratory Rate 18 Blood Pressure 148/78 H 141/79 H Pulse Oximetry 92 Oxygen Delivery Method 07/22/24 13:30 07/22/24 14:00 07/22/24 14:00 Temperature Pulse Rate 72 70 Respiratory Rate 17 23 Blood Pressure 113/53 L Pulse Oximetry 94 91 Oxygen Delivery Method 07/22/24 14:30 07/22/24 14:30 07/22/24 15:00 Temperature Pulse Rate 78 Respiratory Rate 19 Blood Pressure 122/62 117/59 L Pulse Oximetry 90 L Oxygen Delivery Method 07/22/24 15:00 Temperature Pulse Rate 75 Respiratory Rate 19 Blood Pressure Pulse Oximetry 90 L Oxygen Delivery Method Oxygen Delivery Method Room Air Oxygen Flow Rate 0 Narrative Exam Narrative: GEN: Alert and oriented X3. No acute distress. Well-nourished. EYES: PERRLA, EOMI. HENT: Moist mucus membranes, no scleral icterus, normal neck ROM. RESP: Unlabored breathing, equal rise and fall of chest bilaterally, no cyanosis appreciated. CV: No peripheral edema, unremarkable heart rate. ABD: Soft, non-tender, non-distended, no palpable masses. : [place] secured and draining clear yellow urine. EXT: No edema, clubbing or cyanosis. SKIN: No rashes or lesions. NEURO: No focal neurologic deficits, CN II-XII grossly intact. PSYCH: Cooperative, appropriate mood and affect. Objective Labs 07/22/24 08:31 07/21/24 04:10 Labs: Laboratory Results - last 24 hr 07/22/24 08:31 WBC 13.7 H RBC 4.06 L Hgb 12.3 L Hct 36.5 L MCV 89.9 MCH 30.4 MCHC 33.8 RDW 13.3 Plt Count 77 L Neut % (Auto) 88.5 H Lymph % (Auto) 5.5 L Whitley % (Auto) 5.7 Eos % (Auto) 0.2 L Baso % (Auto) 0.1 Neut # (Auto) 27127 H Lymph # (Auto) 700 L Whitley # (Auto) 800 Eos # (Auto) 0 Baso # (Auto) 0 NT-Pro-B [facility]t Pep 2960 [facility] Medical History Retained ureteral stent Bilateral nephrolithiasis BPH loc w urin obs/LUTS Urinary retention Medicare annual wellness visit, subsequent Travel advice encounter Well adult exam Kidney stones Internal hemorrhoids Preventative health care Hyperglycemia Preventative health care BPH (benign prostatic hyperplasia) Colon polyps (~2006) Skin cancer (~2008) Surgical History H/O cystoscopy (10/07/23) History of prostate surgery (10/07/23) Anesthesia History of hernia repair (~2011) Social History marital status: number of children: 2 household members: spouse Tobacco & Substance Use Smoking Status: Never smoker alcohol intake: former substance use type: does not use Diet and Exercise caffeine: Yes Type(s) of exercise: walking and other Assessment & Plan Assessment and plan (1) Ureteral calculus, right: Status: Acute Plan: 79 y/o M noted to have a 10mm right distal ureterolith w/ resultant upstream severe hydroureteronephrosis and an active urinary tract infection who is now s/p a cystoscopy w/ urgent right ureteral stent placement on 20 Jul 2024. He admits that he is feeling better today, not quite as weak, and is able to converse easier. His WBC decreased today and his UCx and BCx's are positive for Klebsiella Pneumoniae that is resistant only to Nitrofurantoin and Ampicillin. He is currently being treated w/ Rocephin. - Appreciate assistance of hospitalist team in management of this patient. - DO NOT REMOVE [place] CATHETER WITHOUT SPEAKING TO [facility]. WILL BE REMOVED DAY OF DISCHARGE. DOES NOT NEED A VOIDING TRIAL HE PERFORMS CIC AT HOME. - Urology will continue to follow while an inpatient - Will require definitive stone management as an outpatient (2) UTI (urinary tract infection): Qualifiers: Urinary tract infection type: site unspecified Hematuria presence: without hematuria Qualified Code(s): N39.0 - Urinary tract infection, site not specified Status: Acute Plan: Please see plan above Time-Based Coding :: [TOTAL MINUTES] spent with patient and on the chart (including review of chart, obtaining history, exam, reviewing outside data, placing orders, documenting exam and treatment plan, and counseling patient) on [DATE]. PROFEE Charge Codes Inpatient or Observation consultation: [id number]
[2024-07-22] MEDS: cefTRIAXone 2,000 MG in SODIUM CHLORIDE 0.9% 100 ML 200 MG IV (17:55)
[2024-07-22] MEDS: ACETAMINOPHEN 325 MG TABLET 650 MG PO (22:07)
[2024-07-23] VITALS (7 sets, daily range): BP systolic 99–147; BP diastolic 55–70; PULSE 55–77; RESP 15–18; TEMP 36.5–36.9; O2SAT 91–96
[2024-07-23] MEDS: CHOLECALCIFEROL (VITAMIN D3) 1,000 UNIT TABLET 1000 UNIT PO (10:17)
--- NOTE | 2024-07-23 10:32 | PC.NURSE ---
07/22/24 Late entry note [address] Rios turn off Levophed, discontinue telemetry, and downgrade patient to acute care status. Pt updated on orders and agrees. Orders carried out, no further needs at this time, care ongoing
--- NOTE | 2024-07-23 16:46 | PM.PN.1 ---
Subjective Subjective Date Patient Seen: 07/23/24 Time Patient Seen: 16:46 Interval history: Chief complaint: Sepsis with shock secondary to Klebsiella pyelonephritis and hydronephrosis due to ureteral stone status post cystoscopy and stent for source control History of present illness: 79 years old with PMH of kidney stones, BPH with LUTs, self-catheterizations, presented with renal colic and obstructing distal, Rt ureteral stone of 10 mm. Upon admission turning septic. Treated with IVBFs, Rocephin in the ED, started on Cefepime upon admission. Hospital course: 07/20: Morning lactic acid was up to 7. He was taken to the OR for stenting and developed postoperative hypotension. He was fluid resuscitated with 4 L of fluid and is now maintaining a map of over 65. He was afebrile. Blood cultures were positive for Gram-negative bacillus. A PICC line was placed. He has been ill for a couple of days with flank pain on the right. He was a known stay chloride on the left. He denies any dysuria. He feels better after stenting. He denies feeling short of breath or having chest pain. He continues to be hypotensive with a map of under 65. 07/21: Patient still feeling somewhat weak but better than yesterday pressors for titrated down but is still remaining with IV fluid running as well visit. Patient has good urine output. No chills or fevers overnight hepatitis improved he is alert and cogent exam is benign Blood culture shows bacteremia with Klebsiella 2/2 and the same in the urine culture and sensitivity as below antibiotics de-escalated to ceftriaxone for a total of 3 days after negative blood culture 07/22: Patient feeling better but not completely to baseline yet weaning off norepinephrine with some bradycardia Blood cultures will be repeated today Per urology Guevara catheter to in place 07/23: Patient has been feeling better off of pressors Review of systems: No headache diplopia No chest pain shortness for breath No nausea vomiting diarrhea No paresthesia paresis Physical exam: Alert cogent elderly male HEENT unremarkable new line neck no JVD Heart rate rhythm regular Lungs clear apices to bases Abdomen nontender bowel sounds present Extremities no edema [facility] [address] [address] Progress Note Patient: Zeferino Mera Jr MR#: [id number] : 1945 Acct:[id number] Age/Sex: 79 / M Admit Date: 07/20/24 Provider: Rd Rios MD Subjective Subjective Date Patient Seen: 07/22/24 Time Patient Seen: 13:15 Interval history: 79 years old with PMH of kidney stones, BPH with LUTs, self-catheterizations, presented with renal colic and obstructing distal, Rt ureteral stone of 10 mm. Upon admission turning septic. Treated with IVBFs, Rocephin in the ED, started on Cefepime upon admission. Hospital course: 07/20: Morning lactic acid was up to 7. He was taken to the OR for stenting and developed postoperative hypotension. He was fluid resuscitated with 4 L of fluid and is now maintaining a map of over 65. He was afebrile. Blood cultures were positive for Gram-negative bacillus. A PICC line was placed. He has been ill for a couple of days with flank pain on the right. He was a known stay chloride on the left. He denies any dysuria. He feels better after stenting. He denies feeling short of breath or having chest pain. He continues to be hypotensive with a map of under 65. 07/21: Patient still feeling somewhat weak but better than yesterday pressors for titrated down but is still remaining with IV fluid running as well visit. Patient has good urine output. No chills or fevers overnight hepatitis improved he is alert and cogent exam is benign Blood culture shows bacteremia with Klebsiella 2/2 and the same in the urine culture and sensitivity as below antibiotics de-escalated to ceftriaxone for a total of 3 days after negative blood culture 07/22: Patient feeling better but not completely to baseline yet weaning off norepinephrine with some bradycardia Blood cultures will be repeated today Per urology Guevara catheter to in place Review of systems: No headache diplopia No chest pain shortness for breath No nausea vomiting diarrhea No paresthesia paresis Physical exam: Alert cogent elderly male HEENT unremarkable new line neck no JVD Heart rate rhythm regular Lungs clear apices to bases Abdomen nontender bowel sounds present Extremities no edema Neurologic nonfocal Microbiology results: 1. Klebsiella pneumoniae M.I.C. RX --------- --- * Amikacin <=2 S * Amoxicillin/Clavulanate <=2 S * Ampicillin >=32 R * Ampicillin/Sulbactam 4 S * Aztreonam <=1 S * Cefepime <=1 S * Cefotaxime <=1 S * Cefotetan <=4 S * Cefoxitin <=4 S * Ceftazidime <=1 S * Ceftriaxone <=1 S * Cefuroxime 2 S * Ciprofloxacin <=0.25 S * Ertapenem <=0.5 S * Gentamicin <=1 S * Imipenem <=0.25 S * Levofloxacin 0.25 S * Meropenem <=0.25 S * Tetracycline <=1 S * Tobramycin <=1 S * Trimethoprim/Sulfamethoxazole <=20 S * Piperacillin/Tazobactam 8 S Exam Vital Signs (past 8 hours): - 07/22/2504:30 07/22/2504:30 07/22/2505:00 Temperature Pulse Rate 73 Respiratory Rate 19 Blood Pressure 128/69 104/59 L Pulse Oximetry 90 L Oxygen Delivery Method Oxygen Flow Rate 07/22/2505:00 07/22/2505:30 07/22/2505:30 Temperature Pulse Rate 68 70 Respiratory Rate 17 20 Blood Pressure 125/64 Pulse Oximetry 90 L 93 Oxygen Delivery Method Oxygen Flow Rate 0 07/22/2506:00 07/22/2506:00 07/22/2506:30 Temperature Pulse Rate 68 Respiratory Rate 19 Blood Pressure 112/53 L 143/74 H Pulse Oximetry 91 Oxygen Delivery Method Oxygen Flow Rate 07/22/2506:30 07/23/2507:00 07/23/2507:00 Temperature Pulse Rate 74 68 Respiratory Rate 19 17 Blood Pressure 141/76 H Pulse Oximetry 92 93 Oxygen Delivery Method Oxygen Flow Rate 07/23/2507:14 07/23/2507:14 07/23/2507:17 Temperature Pulse Rate 71 Respiratory Rate 22 Blood Pressure 137/74 132/63 Pulse Oximetry Oxygen Delivery Method Oxygen Flow Rate 07/23/2507:17 07/23/2507:19 07/23/2507:19 Temperature Pulse Rate 73 72 Respiratory Rate 23 22 Blood Pressure 131/64 Pulse Oximetry Oxygen Delivery Method Oxygen Flow Rate 07/23/2507:30 07/23/2507:30 07/22/2508:00 Temperature Pulse Rate 64 Respiratory Rate 19 Blood Pressure 119/63 Pulse Oximetry 94 Oxygen Delivery Method Room Air Oxygen Flow Rate 07/22/2508:00 07/22/2508:01 07/22/2508:01 Temperature Pulse Rate 64 64 Respiratory Rate 21 23 Blood Pressure 112/60 Pulse Oximetry 93 93 Oxygen Delivery Method Oxygen Flow Rate 07/22/2508:30 07/22/2508:30 07/22/2508:44 Temperature 98.0 F Pulse Rate 66 Respiratory Rate 19 Blood Pressure 115/62 Pulse Oximetry 93 Oxygen Delivery Method Oxygen Flow Rate 07/22/2508:51 07/22/2508:51 07/22/2508:52 Temperature Pulse Rate 73 Respiratory Rate 20 Blood Pressure 113/61 120/68 Pulse Oximetry 94 Oxygen Delivery Method Oxygen Flow Rate 07/22/2508:52 07/22/2508:59 07/22/2508:59 Temperature Pulse Rate 69 67 Respiratory Rate 24 22 Blood Pressure 123/71 Pulse Oximetry 94 95 Oxygen Delivery Method Oxygen Flow Rate 07/22/2509:00 07/22/2509:00 07/22/2509:30 Temperature Pulse Rate 63 Respiratory Rate 21 Blood Pressure 125/63 124/66 Pulse Oximetry 95 Oxygen Delivery Method Oxygen Flow Rate 07/22/2509:30 07/22/2510:00 07/22/2510:00 Temperature Pulse Rate 61 62 Respiratory Rate 17 18 Blood Pressure 122/67 Pulse Oximetry 92 95 Oxygen Delivery Method Oxygen Flow Rate 07/22/2510:30 07/22/2510:31 07/22/2510:31 Temperature Pulse Rate 64 62 Respiratory Rate 17 16 Blood Pressure 140/74 Pulse Oximetry 94 95 Oxygen Delivery Method Oxygen Flow Rate 07/23/2511:00 07/23/2511:00 Temperature Pulse Rate 68 Respiratory Rate 18 Blood Pressure 149/82 H Pulse Oximetry 94 Oxygen Delivery Method Oxygen Flow Rate Oxygen Delivery Method Room Air Oxygen Flow Rate 0 Objective Labs 07/22/24 08:31 07/21/24 04:10 Labs: Laboratory Results - last 24 hr 07/22/24 08:31 WBC 13.7 H RBC 4.06 L Hgb 12.3 L Hct 36.5 L MCV 89.9 MCH 30.4 MCHC 33.8 RDW 13.3 Plt Count 77 L Neut % (Auto) 88.5 H Lymph % (Auto) 5.5 L Falls % (Auto) 5.7 Eos % (Auto) 0.2 L Baso % (Auto) 0.1 Neut # (Auto) 09384 H Lymph # (Auto) 700 L Falls # (Auto) 800 Eos # (Auto) 0 Baso # (Auto) 0 NT-Pro-B Natriuret Pep 2960 H PFSH Medical History Retained ureteral stent Bilateral nephrolithiasis BPH loc w urin obs/LUTS Urinary retention Medicare annual wellness visit, subsequent Travel advice encounter Well adult exam Kidney stones Internal hemorrhoids Preventative health care Hyperglycemia Preventative health care BPH (benign prostatic hyperplasia) Colon polyps (~2006) Skin cancer (~2008) Surgical History H/O cystoscopy (10/07/23) History of prostate surgery (10/07/23) Anesthesia History of hernia repair (~2011) Social History marital status: number of children: 2 household members: spouse Smoking Status: Never smoker alcohol intake: former substance use type: does not use caffeine: Yes Type(s) of exercise: walking and other Assessment & Plan 1. Septic shock, secondary to Klebsiella with bacteremia -continue ceftriaxone for which this is sensitive -Wean off pressors -repeat blood cultures today -at least 72 hours of IV ceftriaxone after negative blood culture 2. Obstructive pyelonephritis, present on admission and active. 3. Obstructive nephrolithiasis status post stenting this morning, present on admission and improved. This is a 10 mm right ureter stone. 4. Lactic acidosis, improved after hydration 5. History of staghorn kidney stone, present on admission and active. To follow-up at tertiary center 6. BPH, present on admission and stable. Time-Based Coding :: [35 minutes] spent with patient and on the chart (including review of chart, obtaining history, exam, reviewing outside data, placing orders, documenting exam and treatment plan, and counseling patient) on [07/23/2024]. Exam Vital Signs (past 8 hours): - 07/23/24 12:00 07/23/24 16:00 Temperature 97.7 F 98.5 F Pulse Rate 58 L 55 L Respiratory Rate 16 15 Blood Pressure 124/66 111/55 L Pulse Oximetry 94 94 Oxygen Flow Rate 0 0 Oxygen Delivery Method Room Air Oxygen Flow Rate 0 Objective Labs 07/22/24 08:31 07/21/24 04:10 [facility] Medical History Retained ureteral stent Bilateral nephrolithiasis BPH loc w urin obs/LUTS Urinary retention Medicare annual wellness visit, subsequent Travel advice encounter Well adult exam Kidney stones Internal hemorrhoids Preventative health care Hyperglycemia Preventative health care BPH (benign prostatic hyperplasia) Colon polyps (~2006) Skin cancer (~2008) Surgical History H/O cystoscopy (10/07/23) History of prostate surgery (10/07/23) Anesthesia History of hernia repair (~2011) Social History marital status: number of children: 2 household members: spouse Smoking Status: Never smoker alcohol intake: former substance use type: does not use caffeine: Yes Type(s) of exercise: walking and other Assessment & Plan Time-Based Coding :: [TOTAL MINUTES] spent with patient and on the chart (including review of chart, obtaining history, exam, reviewing outside data, placing orders, documenting exam and treatment plan, and counseling patient) on [DATE].
--- NOTE | 2024-07-23 17:30 | PM.CN.IH.1 ---
History of Present Illness Consult details Date Patient Seen: 07/23/24 Time Patient Seen: 17:31 Chief complaint: right flank pain Narrative: 79 y/o M noted to have a 10mm right distal ureterolith w/ resultant upstream severe hydroureteronephrosis and an active urinary tract infection who is now s/p a cystoscopy w/ urgent right ureteral stent placement on 20 Jul 2024. He admits that he is feeling better today, not quite as weak, and is able to converse easier. His UCx and BCx's are positive for Klebsiella Pneumoniae that is resistant only to Nitrofurantoin and Ampicillin. He is currently being treated w/ Rocephin. Meds Home Medications and Allergies Home Medications Medication Instructions Recorded Confirmed Type lactobacillus combination no.9 1 cap PO DAILY 05/13/20 07/20/24 History [Adult 50 Plus Probiotic] cholecalciferol (vitamin D3) 1,000 tab PO .QD 08/15/20 07/20/24 History Allergies Allergy/AdvReac Type Severity Reaction Status Date / Time No Known Drug Allergies Allergy Verified 01/21/24 10:03 Review of Systems Review of Systems Narrative: CONSTITUTIONAL: Denies weight loss, fevers, chills. HEENT: Denies change in vision, hearing. RESP: Denies SOB, cough. CV: Denies palpations, CP. GI: Denies abdominal pain, nausea, vomiting, diarrhea. MSK: Denies myalgia, joint pain. SKIN: Denies rash, pruritus. NEURO: Denies headache, syncope. PSYCH: Denies recent change in mood, anxiety, depression. Exam Vital Signs (past 8 hours): - 07/23/24 12:00 07/23/24 16:00 Temperature 97.7 F 98.5 F Pulse Rate 58 L 55 L Respiratory Rate 16 15 Blood Pressure 124/66 111/55 L Pulse Oximetry 94 94 Oxygen Flow Rate 0 0 Oxygen Delivery Method Room Air Oxygen Flow Rate 0 Narrative Exam Narrative: GEN: Alert and oriented X3. No acute distress. Well-nourished. EYES: PERRLA, EOMI. HENT: Moist mucus membranes, no scleral icterus, normal neck ROM. RESP: Unlabored breathing, equal rise and fall of chest bilaterally, no cyanosis appreciated. CV: No peripheral edema, unremarkable heart rate. ABD: Soft, non-tender, non-distended, no palpable masses. : Saldaña secured and draining clear yellow urine. EXT: No edema, clubbing or cyanosis. SKIN: No rashes or lesions. NEURO: No focal neurologic deficits, CN II-XII grossly intact. PSYCH: Cooperative, appropriate mood and affect. Objective Labs 07/22/24 08:31 07/21/24 04:10 [facility] Medical History Retained ureteral stent Bilateral nephrolithiasis BPH loc w urin obs/LUTS Urinary retention Medicare annual wellness visit, subsequent Travel advice encounter Well adult exam Kidney stones Internal hemorrhoids Preventative health care Hyperglycemia Preventative health care BPH (benign prostatic hyperplasia) Colon polyps (~2006) Skin cancer (~2008) Surgical History H/O cystoscopy (10/07/23) History of prostate surgery (10/07/23) Anesthesia History of hernia repair (~2011) Social History marital status: number of children: 2 household members: spouse Tobacco & Substance Use Smoking Status: Never smoker alcohol intake: former substance use type: does not use Diet and Exercise caffeine: Yes Type(s) of exercise: walking and other Assessment & Plan Assessment and plan (1) Ureteral calculus, right: Status: Acute Plan: 79 y/o M noted to have a 10mm right distal ureterolith w/ resultant upstream severe hydroureteronephrosis and an active urinary tract infection who is now s/p a cystoscopy w/ urgent right ureteral stent placement on 20 Jul 2024. He admits that he is feeling better today, not quite as weak, and is able to converse easier. His UCx and BCx's are positive for Klebsiella Pneumoniae that is resistant only to Nitrofurantoin and Ampicillin. He is currently being treated w/ Rocephin. - Appreciate assistance of hospitalist team in management of this patient. - DO NOT REMOVE SALDAÑA CATHETER WITHOUT SPEAKING TO [facility]. WILL BE REMOVED DAY OF DISCHARGE. DOES NOT NEED A VOIDING TRIAL HE PERFORMS CIC AT HOME. - Urology will continue to follow while an inpatient - Will require definitive stone management as an outpatient (2) UTI (urinary tract infection): Qualifiers: Urinary tract infection type: site unspecified Hematuria presence: without hematuria Qualified Code(s): N39.0 - Urinary tract infection, site not specified Status: Acute Plan: Please see plan above Time-Based Coding :: [TOTAL MINUTES] spent with patient and on the chart (including review of chart, obtaining history, exam, reviewing outside data, placing orders, documenting exam and treatment plan, and counseling patient) on [DATE]. PROFEE Charge Codes Inpatient or Observation consultation: 17154
[2024-07-23] MEDS: cefTRIAXone 2,000 MG in SODIUM CHLORIDE 0.9% 100 ML 200 MG IV (18:18)
[2024-07-24 05:18] VITALS: BP 119/62; PULSE 60; RESP 16; O2SAT 92
[2024-07-24] MEDS: ACETAMINOPHEN 325 MG TABLET 650 MG PO (08:29)
[2024-07-24] MEDS: CHOLECALCIFEROL (VITAMIN D3) 1,000 UNIT TABLET 1000 UNIT PO (08:29)
[2024-07-24 09:00] VITALS: BP 108/58; PULSE 58; RESP 15; TEMP 36.6; O2SAT 91
--- NOTE | 2024-07-24 10:55 | PM.PN.1 ---
Subjective Subjective Date Patient Seen: 07/24/24 Time Patient Seen: 10:55 Interval history: Exam Vital Signs (past 8 hours): - 07/24/24 05:18 07/24/24 08:00 07/24/24 09:00 Temperature 97.8 F Pulse Rate 60 58 L Respiratory Rate 16 15 Blood Pressure 119/62 108/58 L Pulse Oximetry 92 91 Oxygen Delivery Method Room Air Oxygen Flow Rate 0 Oxygen Delivery Method Room Air Oxygen Flow Rate 0 Objective Labs 07/22/24 08:31 07/21/24 04:10 [facility] Medical History Retained ureteral stent Bilateral nephrolithiasis BPH loc w urin obs/LUTS Urinary retention Medicare annual wellness visit, subsequent Travel advice encounter Well adult exam Kidney stones Internal hemorrhoids Preventative health care Hyperglycemia Preventative health care BPH (benign prostatic hyperplasia) Colon polyps (~2006) Skin cancer (~2008) Surgical History H/O cystoscopy (10/07/23) History of prostate surgery (10/07/23) Anesthesia History of hernia repair (~2011) Social History marital status: number of children: 2 household members: spouse Smoking Status: Never smoker alcohol intake: former substance use type: does not use caffeine: Yes Type(s) of exercise: walking and other Assessment & Plan Time-Based Coding :: [TOTAL MINUTES] spent with patient and on the chart (including review of chart, obtaining history, exam, reviewing outside data, placing orders, documenting exam and treatment plan, and counseling patient) on [DATE].
--- NOTE | 2024-07-24 11:16 | P.PN_ITS ---
Subjective Subjective Date Patient Seen: 07/24/24 Time Patient Seen: 11:16 Interval history: Chief complaint: Sepsis with shock secondary to Klebsiella pyelonephritis and hydronephrosis due to ureteral stone status post cystoscopy and stent for source control History of present illness: 79 years old with PMH of kidney stones, BPH with LUTs, self-catheterizations, presented with renal colic and obstructing distal, Rt ureteral stone of 10 mm. Upon admission turning septic. Treated with IVBFs, Rocephin in the ED, started on Cefepime upon admission. Hospital course: 07/20: Morning lactic acid was up to 7. He was taken to the OR for stenting and developed postoperative hypotension. He was fluid resuscitated with 4 L of fluid and is now maintaining a map of over 65. He was afebrile. Blood cultures were positive for Gram-negative bacillus. A PICC line was placed. He has been ill for a couple of days with flank pain on the right. He was a known stay chloride on the left. He denies any dysuria. He feels better after stenting. He denies feeling short of breath or having chest pain. He continues to be hypotensive with a map of under 65. 07/21: Patient still feeling somewhat weak but better than yesterday pressors for titrated down but is still remaining with IV fluid running as well visit. Patient has good urine output. No chills or fevers overnight hepatitis improved he is alert and cogent exam is benign Blood culture shows bacteremia with Klebsiella 2/2 and the same in the urine culture and sensitivity as below antibiotics de-escalated to ceftriaxone for a total of 3 days after negative blood culture 07/22: Patient feeling better but not completely to baseline yet weaning off norepinephrine with some bradycardia Blood cultures will be repeated today Per urology Guevara catheter to in place 07/23: Patient has been feeling better off of pressors 07/24: Patient is feeling much better Blood cultures from 07/22 is negative We will continue with IV ceftriaxone through Saturday Can discharge Saturday afternoon followed up by 5 days of cefdinir Review of systems: No headache diplopia No chest pain shortness for breath No nausea vomiting diarrhea No paresthesia paresis Physical exam: Alert cogent elderly male HEENT unremarkable new line neck no JVD Heart rate rhythm regular Lungs clear apices to bases Abdomen nontender bowel sounds present Extremities no edema Neurologic nonfocal Assessment & Plan 1. Septic shock, secondary to Klebsiella with bacteremia -Blood cultures from 07/22 is negative -We will continue with IV ceftriaxone through Saturday morning -Can discharge Saturday afternoon followed up by 5 days of cefdinir 2. Obstructive pyelonephritis, present on admission and active. 3. Obstructive nephrolithiasis status post stenting this morning, present on admission and improved. This is a 10 mm right ureter stone. 4. Lactic acidosis, improved after hydration 5. History of staghorn kidney stone, present on admission and active. To follow-up at tertiary center 6. BPH, present on admission and stable. Time-Based Coding :: [35 minutes] spent with patient and on the chart (including review of chart, obtaining history, exam, reviewing outside data, placing orders, documenting exam and treatment plan, and counseling patient) on [07/24/2024]. Exam Vital Signs (past 8 hours): - 07/24/24 05:18 07/24/24 08:00 07/24/24 09:00 Temperature 97.8 F Pulse Rate 60 58 L Respiratory Rate 16 15 Blood Pressure 119/62 108/58 L Pulse Oximetry 92 91 Oxygen Delivery Method Room Air Oxygen Flow Rate 0 Oxygen Delivery Method Room Air Oxygen Flow Rate 0 Objective Labs 07/22/24 08:31 07/21/24 04:10 [facility] Medical History Retained ureteral stent Bilateral nephrolithiasis BPH loc w urin obs/LUTS Urinary retention Medicare annual wellness visit, subsequent Travel advice encounter Well adult exam Kidney stones Internal hemorrhoids Preventative health care Hyperglycemia Preventative health care BPH (benign prostatic hyperplasia) Colon polyps (~2006) Skin cancer (~2008) Surgical History H/O cystoscopy (10/07/23) History of prostate surgery (10/07/23) Anesthesia History of hernia repair (~2011) Social History marital status: number of children: 2 household members: spouse Smoking Status: Never smoker alcohol intake: former substance use type: does not use caffeine: Yes Type(s) of exercise: walking and other Assessment & Plan Time-Based Coding :: [TOTAL MINUTES] spent with patient and on the chart (including review of chart, obtaining history, exam, reviewing outside data, placing orders, documenting exam and treatment plan, and counseling patient) on [DATE].
[2024-07-24 12:38] LABS: Add Manual Diff / Slide Review NO; Basophils Absolute Auto 100 /uL (0-100); Basophils Percent Auto 0.7 % (0-2); Eosinophils Absolute Auto 200 /uL (0-450); Eosinophils Percent Auto 2.2 % (2-4); Hematocrit 37.7 % (41-53); Hemoglobin 12.9 g/dL (13.5-17.5); Lymphocytes Absolute Auto 1200 /uL (1100-4500); Lymphocytes Percent Auto 14.7 % (25-40); Mean Corpuscular HGB Conc 34.3 % (30-36); Mean Corpuscular Hemoglobin 30.6 PG (26-34); Mean Corpuscular Volume 89.1 fL (80-100); Monocytes Absolute Auto 1100 /uL (0-900); Monocytes Percent Auto 13.6 % (3-14); Neutrophils Absolute Auto 5600 /uL (1500-7000); Neutrophils Percent Auto 68.8 % (50-75); Platelet Count 122 X10^3/uL (150-400); Red Blood Cell Count 4.23 X10^6/uL (4.5-5.9); Red Cell Distribution Width 13.1 % (11.6-14.8); White Blood Cell Count 8.1 X10^3/uL (4.5-11.0)
[2024-07-24 12:50] LABS: Alanine Aminotransferase 51 IU/L (<50); Albumin 3.1 g/dL (3.5-5.0); Alkaline Phosphatase 197 U/L (38-126); Aspartate Aminotransferase 67 IU/L (17-59); BUN Creatinine Ratio 24.7 (6-22); Bilirubin Total 1.2 mg/dL (0.2-1.3); Blood Urea Nitrogen 24 mg/dL (9-20); Calcium 8.6 mg/dL (8.4-10.2); Carbon Dioxide 25 mmol/L (22-32); Chloride 105 mmol/L (98-107); Estimated Glomerular Filt Rate > 60 mL/min (>60); Globulin 3.1 g/dL (1.7-4.1); Glucose 112 mg/dL (80-110); HEMOLYSIS < 15 (0-50); Potassium 3.6 mmol/L (3.4-5.1); Sodium 137 mmol/L (137-145); Total Protein 6.2 g/dL (6.3-8.2)
[2024-07-24 13:00] VITALS: BP 124/62; PULSE 64; RESP 14; TEMP 36.4; O2SAT 92
[2024-07-24] MEDS: cefTRIAXone 2,000 MG in SODIUM CHLORIDE 0.9% 100 ML 200 MG IV (16:40)
[2024-07-24 17:00] VITALS: BP 128/63; PULSE 61; RESP 15; TEMP 36.3; O2SAT 96
[2024-07-24 20:00] VITALS: BP 132/64; PULSE 72; RESP 18; TEMP 37.2; O2SAT 94
[2024-07-25] VITALS: BP 99/53; PULSE 64; RESP 20; TEMP 37.4; O2SAT 95
[2024-07-25 04:00] VITALS: BP 117/58; PULSE 60; RESP 19; TEMP 37.3; O2SAT 95
[2024-07-25] MEDS: ACETAMINOPHEN 325 MG TABLET 650 MG PO (07:01)
[2024-07-25 08:00] VITALS: BP 137/66; PULSE 59; RESP 15; TEMP 36.7; O2SAT 94
[2024-07-25] MEDS: CHOLECALCIFEROL (VITAMIN D3) 1,000 UNIT TABLET 1000 UNIT PO (08:06)
--- NOTE | 2024-07-25 10:21 | PM.PN.IH.1 ---
Subjective Subjective Date Patient Seen: 07/25/24 Time Patient Seen: 08:05 Interval history: Chief complaint: Sepsis with shock secondary to Klebsiella pyelonephritis and hydronephrosis due to ureteral stone status post cystoscopy and stent for source control History of present illness: 79 years old with PMH of kidney stones, BPH with LUTs, self-catheterizations, presented with renal colic and obstructing distal, Rt ureteral stone of 10 mm. Upon admission turning septic. Treated with IVBFs, Rocephin in the ED, started on Cefepime upon admission. Hospital course: 07/20: Morning lactic acid was up to 7. He was taken to the OR for stenting and developed postoperative hypotension. He was fluid resuscitated with 4 L of fluid and is now maintaining a map of over 65. He was afebrile. Blood cultures were positive for Gram-negative bacillus. A PICC line was placed. He has been ill for a couple of days with flank pain on the right. He was a known stay chloride on the left. He denies any dysuria. He feels better after stenting. He denies feeling short of breath or having chest pain. He continues to be hypotensive with a map of under 65. 07/21: Patient still feeling somewhat weak but better than yesterday pressors for titrated down but is still remaining with IV fluid running as well visit. Patient has good urine output. No chills or fevers overnight hepatitis improved he is alert and cogent exam is benign Blood culture shows bacteremia with Klebsiella 2/2 and the same in the urine culture and sensitivity as below antibiotics de-escalated to ceftriaxone for a total of 3 days after negative blood culture 07/22: Patient feeling better but not completely to baseline yet weaning off norepinephrine with some bradycardia Blood cultures will be repeated today Per urology Guevara catheter to in place 07/23: Patient has been feeling better off of pressors 07/24: Patient is feeling much better Blood cultures from 07/22 is negative We will continue with IV ceftriaxone through Saturday Can discharge Saturday afternoon followed up by 5 days of cefdinir 07/25: He reports feeling better and has gotten up. He wishes to keep the catheter in until discharge then can self-cath at home after discharge Anticipating going home tomorrow after his last dose of IV antibiotics. Exam Vital Signs (past 8 hours): - 07/25/24 04:00 07/25/24 07:00 07/25/24 08:00 Temperature 99.1 F 98.0 F Pulse Rate 60 59 L Respiratory Rate 19 15 Blood Pressure 117/58 L 137/66 Pulse Oximetry 95 94 Oxygen Delivery Method Room Air Oxygen Flow Rate 0 Oxygen Delivery Method Room Air Oxygen Flow Rate 0 Narrative Exam Narrative: Alert cogent elderly male HEENT unremarkable new line neck no JVD Heart rate rhythm regular Lungs clear apices to bases Abdomen nontender bowel sounds present Extremities no edema Neurologic nonfocal Objective Labs 07/24/24 12:20 07/24/24 12:20 Labs: Laboratory Results - last 24 hr 07/24/24 12:20 WBC 8.1 RBC 4.23 L Hgb 12.9 L Hct 37.7 L MCV 89.1 MCH 30.6 MCHC 34.3 RDW 13.1 Plt Count 122 L Neut % (Auto) 68.8 Lymph % (Auto) 14.7 L [place] % (Auto) 13.6 Eos % (Auto) 2.2 Baso % (Auto) 0.7 Neut # (Auto) 5600 Lymph # (Auto) 1200 [place] # (Auto) 1100 H Eos # (Auto) 200 Baso # (Auto) 100 Sodium 137 Potassium 3.6 Chloride 105 Carbon Dioxide 25 BUN 24 H Creatinine 0.97 Estimated GFR > 60 BUN/Creatinine Ratio 24.7 H Glucose 112 H Calcium 8.6 Total Bilirubin 1.2 AST 67 H ALT 51 H Alkaline Phosphatase 197 H D Total Protein 6.2 L Albumin 3.1 L Globulin 3.1 Albumin/Globulin Ratio 1.0 PFSH Medical History Bilateral nephrolithiasis BPH (benign prostatic hyperplasia) BPH loc w urin obs/LUTS Colon polyps (~2006) Hyperglycemia Internal hemorrhoids Kidney stones Medicare annual wellness visit, subsequent Preventative health care Preventative health care Retained ureteral stent Skin cancer (~2008) Travel advice encounter Urinary retention Well adult exam Surgical History Anesthesia H/O cystoscopy (10/07/23) History of hernia repair (~2011) History of prostate surgery (10/07/23) Social History marital status: number of children: 2 household members: spouse Smoking Status: Never smoker alcohol intake: former substance use type: does not use caffeine: Yes Type(s) of exercise: walking and other Assessment & Plan Assessment & Plan narrative: 1. Septic shock, secondary to Klebsiella with bacteremia -Blood cultures from 07/22 is negative -We will continue with IV ceftriaxone through Saturday morning -Can discharge Saturday afternoon followed up by 5 days of cefdinir 2. Obstructive pyelonephritis, present on admission and active. 3. Obstructive nephrolithiasis status post stenting 07/20/2024, present on admission and improved. This is a 10 mm right ureter stone. 4. Lactic acidosis, improved after hydration 5. History of staghorn kidney stone, present on admission and active. To follow-up at tertiary center 6. BPH, present on admission and stable. [employer] Director Document charge(s): No Charge Codes Subsequent inpatient/observation care: [id number]
[2024-07-25 12:00] VITALS: BP 118/60; PULSE 64; RESP 16; TEMP 36.2; O2SAT 95
--- NOTE | 2024-07-25 15:13 | CM.DPC ---
DCP COnt: Per MD, pt with negative cultures and to remain on IV through tomorrow Sun and then d/c in the afternoon on PO meds and pt self cath's at baseline and preference for pt is to keep figueroa in place until d/c and then resume self cath at home. SW observed pt moving in room independently with FWW and supportive spouse bedside and they are aware of likely d/c home tomorrow after final IV dose. Shabnam Mejias MSW
[2024-07-25 16:00] VITALS: BP 162/74; PULSE 67; RESP 15; TEMP 36.2; O2SAT 100
[2024-07-25] MEDS: cefTRIAXone 2,000 MG in SODIUM CHLORIDE 0.9% 100 ML 200 MG IV (17:40)
[2024-07-25] MEDS: SODIUM CHLORIDE 0.9% FLUSH 10 ML IV (19:42)
[2024-07-25 20:00] VITALS: BP 128/65; PULSE 70; RESP 17; TEMP 36.6; O2SAT 94
[2024-07-26] VITALS: BP 148/68; PULSE 64; RESP 20; TEMP 36.9; O2SAT 96
[2024-07-26 04:00] VITALS: BP 134/64; PULSE 62; RESP 17; TEMP 36.9; O2SAT 98
[2024-07-26 05:30] LABS: Add Manual Diff / Slide Review NO; Basophils Absolute Auto 100 /uL (0-100); Basophils Percent Auto 0.7 % (0-2); Eosinophils Absolute Auto 400 /uL (0-450); Eosinophils Percent Auto 5.6 % (2-4); Hematocrit 36.6 % (41-53); Hemoglobin 12.5 g/dL (13.5-17.5); Lymphocytes Absolute Auto 1500 /uL (1100-4500); Lymphocytes Percent Auto 21.3 % (25-40); Mean Corpuscular HGB Conc 34.3 % (30-36); Mean Corpuscular Hemoglobin 30.4 PG (26-34); Mean Corpuscular Volume 88.8 fL (80-100); Monocytes Absolute Auto 1000 /uL (0-900); Monocytes Percent Auto 14.3 % (3-14); Neutrophils Absolute Auto 4200 /uL (1500-7000); Neutrophils Percent Auto 58.1 % (50-75); Platelet Count 167 X10^3/uL (150-400); Red Blood Cell Count 4.12 X10^6/uL (4.5-5.9); Red Cell Distribution Width 12.9 % (11.6-14.8); White Blood Cell Count 7.2 X10^3/uL (4.5-11.0)
[2024-07-26 05:44] LABS: Alanine Aminotransferase 42 IU/L (<50); Alkaline Phosphatase 190 U/L (38-126); Aspartate Aminotransferase 40 IU/L (17-59); BUN Creatinine Ratio 21.2 (6-22); Bilirubin Total 0.7 mg/dL (0.2-1.3); Blood Urea Nitrogen 18 mg/dL (9-20); Calcium 8.3 mg/dL (8.4-10.2); Carbon Dioxide 27 mmol/L (22-32); Chloride 104 mmol/L (98-107); Estimated Glomerular Filt Rate > 60 mL/min (>60); Glucose 131 mg/dL (80-110); HEMOLYSIS < 15 (0-50); Potassium 3.5 mmol/L (3.4-5.1); Sodium 137 mmol/L (137-145)
[2024-07-26 08:00] VITALS: BP 140/70; PULSE 66; RESP 16; TEMP 36.4; O2SAT 93
[2024-07-26] MEDS: CHOLECALCIFEROL (VITAMIN D3) 1,000 UNIT TABLET 1000 UNIT PO (09:19)
--- NOTE | 2024-07-26 10:06 | PC.NURSE ---
Patient is A&OX4, VSS, afebrile on RA. He is able to tolerate 100% of breakfast and ambulate independently in the room and around the unit. He is evaluated by MD Jha at bedside and cleared for discharge home today with oral antibiotics. Patient verbalizes understanding of medication as well as plan for follow up on Saturday with MD Claudio. PICC line and figueroa catheter are removed. He is accustomed to straight cath's at home and is not required to stay until first void with PVR.He is escorted by nurse via w/ch with all of his belongings to private vehicle for discharge home today at approximately 0940.
--- NOTE | 2024-07-26 10:48 | P.DS_ITS ---
History of Present Illness History of Present Illness Date Patient Seen: 07/26/24 Time Patient Seen: 07:50 Chief complaint: right flank pain Narrative: 79 years old with PMH of kidney stones, BPH with LUTs, self-catheterizations, presented with renal colic and obstructing distal, Rt ureteral stone of 10 mm. Upon admission turning septic. Treated with IVBFs, Rocephin in the ED, started on Cefepime upon admission. Morning lactic acid was up to 7. He was taken to the OR for stenting and developed postoperative hypotension. He was fluid resuscitated with 4 L of fluid and is now maintaining a map of over 65. He was afebrile. Blood cultures were positive for Gram-negative bacillus. A PICC line was placed. He has been ill for a couple of days with flank pain on the right. He was a known stay chloride on the left. He denies any dysuria. He feels better after stenting. He denies feeling short of breath or having chest pain. He continues to be hypotensive with a map of under 65. Discharge Providers Provider Date of admission: 07/20/24 12:33 Discharge Date: 07/26/24 Primary care physician: Samuel Valdez DO Consults: 07/21/24 19:12 Consult to Urology Routine Comment: Consulting Provider: Paola Gonzalez Reason for consultation: Right ureteral stone, urinary tract infection Has provider been notified: Yes Discharge provider: Bismark Jha MD Summary Hospital Course Discharge Diagnosis: 1. Septic shock, secondary to Klebsiella with bacteremia 2. Obstructive pyelonephritis. 3. Obstructive nephrolithiasis with 10mm right UVJ stone, status post stenting 07/20/2024. 4. Lactic acidosis, resolved. 5. History of staghorn kidney stone. 6. BPH. Hospital Course: The patient was admitted and underwent right ureteral stenting on 07/20/2024, and treated with IV Cetriaxone for 5 days followed by 5 more days of oral Cefdinir planned after discharge for Klebsiella pneumoniae cultured brom urine and blood culture x 2 on 07/19. Blood cultures from 07/22 returned negative. He was feeling well at discharge and planning outpatient urologic followup for repeat stenting and definitive stone therapy. He was feeling well and ambulatory without limitation. The patient acknowledged understanding, agreement and appreciation of this plan of care, and agreed to call back with any questions or concerns. Status at Discharge Cognitive/behavioral status at discharge: oriented Functional status at discharge: independent ambulation Overall status at discharge: patient is back to baseline Time Spent with Patient Time spent: Less than 30 minutes Exam Vital Signs (past 8 hours): - 07/26/24 04:00 07/26/24 08:00 Temperature 98.5 F 97.5 F L Pulse Rate 62 66 Respiratory Rate 17 16 Blood Pressure 134/64 140/70 Pulse Oximetry 98 93 Oxygen Flow Rate 0 Oxygen Delivery Method Room Air Oxygen Flow Rate 0 Narrative Exam Narrative: Alert cogent elderly male HEENT unremarkable new line neck no JVD Heart rate rhythm regular Lungs clear apices to bases Abdomen nontender bowel sounds present Extremities no edema Neurologic nonfocal Objective Imaging *: Radiologist's impression: Renal US 07/19/2024: 1. Simple appearing bilateral renal cysts. Nonobstructing stones in left kidney. No solid appearing renal lesion. No hydronephrosis. 2. No gross abnormality is seen in decompressed urinary bladder. Scrotum US 07/19/2024: Simple appearing bilateral testicular cysts. No solid appearing testicular lesion. No evidence of testicular torsion. No hydrocele or varicoceles. Abdomen xray 07/20/2024: Opacified moderately dilated right renal collecting system and dual right ureteral stents. Chest xray 07/20/2024: Left-sided PICC with the catheter tip at the lower 3rd of the SVC. No pneumothorax demonstrated. Labs 07/26/24 04:51 07/26/24 04:51 Labs: Laboratory Results - last 24 hr 07/26/24 04:51 WBC 7.2 RBC 4.12 L Hgb 12.5 L Hct 36.6 L MCV 88.8 MCH 30.4 MCHC 34.3 RDW 12.9 Plt Count 167 Neut % (Auto) 58.1 Lymph % (Auto) 21.3 L [place] % (Auto) 14.3 H Eos % (Auto) 5.6 H Baso % (Auto) 0.7 Neut # (Auto) 4200 Lymph # (Auto) 1500 [place] # (Auto) 1000 H Eos # (Auto) 400 Baso # (Auto) 100 Sodium 137 Potassium 3.5 Chloride 104 Carbon Dioxide 27 BUN 18 Creatinine 0.85 Estimated GFR > 60 BUN/Creatinine Ratio 21.2 Glucose 131 H Calcium 8.3 L Total Bilirubin 0.7 AST 40 ALT 42 Alkaline Phosphatase 190 H Total Protein 6.0 L Albumin 3.0 L Globulin 3.0 Albumin/Globulin Ratio 1.0 PFSH Medical History Bilateral nephrolithiasis BPH (benign prostatic hyperplasia) BPH loc w urin obs/LUTS Colon polyps (~2006) Hyperglycemia Internal hemorrhoids Kidney stones Medicare annual wellness visit, subsequent Preventative health care Preventative health care Retained ureteral stent Skin cancer (~2008) Travel advice encounter Urinary retention Well adult exam Surgical History Anesthesia H/O cystoscopy (10/07/23) History of hernia repair (~2011) History of prostate surgery (10/07/23) Social History marital status: number of children: 2 household members: spouse Smoking Status: Never smoker alcohol intake: former substance use type: does not use caffeine: Yes Type(s) of exercise: walking and other Discharge Plan Discharge Plan Patient Disposition: Home Provider Discharge Comment: Followup with Dr. Valdez 1 week, Dr. Ramsey as planned this week Discharge orders & Medications Prescriptions: New cefdinir 300 mg capsule 300 mg PO BID Qty: 10 0RF Continued cholecalciferol (vitamin D3) 1,000 tab PO .QD Rx Instructions: 1,000 IU po QD lactobacillus combination no.9 1 cap PO DAILY Follow up/Referrals: Samuel Valdez DO [Primary Care Provider] - Visit Report/Discharge Packet Stand Alone Forms: Patient Portal/API, Stroke Signs & Symptoms Discharge Data Primary Care Provider: Samuel Valdez Quality MIPS - Admit I confirm the patient?s Advance Care Plan is present, Code status is documented, Surrogate decision maker is in patient?s record [If Yes, STOP here]: Yes MIPS - Meds 'Current medications' to include all prescriptions, [id number] products, herbals, cannabis/cannabidiol products, and vitamin/mineral/dietary (nutritional) supplements. I have utilized all available resources to obtain, update, or review the patient?s current medications. [If Yes, STOP here]: Yes MIPS - DC The patient has a history of heart transplant or Left Ventricular Assist Device (LVAD). If yes, STOP here.: No The patient has current or prior documentation of left ventricular ejection fraction (LVEF) less than or equal to 40%, or moderate or severely depressed left ventricular systolic function.: No A. The patient was prescribed or already taking an Angiotensin-Converting Enzyme (BIB) Inhibitor, or Angiotensin Receptor Shay (ARB).: No B. The patient was prescribed or already taking a beta-shay. [If Yes to Both A & B, STOP here]: No Patient not prescribed/taking BIB or ARB, no reason given.: No Patient not prescribed/taking beta-shay, no reason given.: No [employer] Charge Codes Discharge inpatient/observation: [id number]
--- NOTE | 2024-07-26 15:36 | CM.DPC ---
DCP Discharge Home Per MD, pt able to switch from IV to PO meds today and medically stable to discharge home with no identified barriers to discharge. RN provided d/c instructions and SW observed pt and spouse leaving to go home this morning. SW alerted TCM group on request for f/u with PCP Dr. Valdez within a week and pt already has f/u appointment with Urologist Dr. Ramsey as well. MARY Paula
== END 2024-07-26 09:40 | disposition home or self-care (01) | DRG 853 ==
LOC: ED 17:59 → AC 07-20 00:18 → ICU 07-20 10:24
PROVIDERS: Hospitalist; Internal Medicine; Urology; Admitting Provider Internal Medicine; Emergency Provider Emergency Medicine; PCP Family Medicine; Referring Provider Emergency Medicine; Visit Provider Internal Medicine
PROC: 0T768DZ Dilation of Right Ureter with Intraluminal Device, Via Natural or Artificial Opening Endoscopic (ICD-10-PCS; principal; 2024-07-20 07:45)
DX: A41.9 Sepsis, unspecified organism (principal); R65.21 Severe sepsis with septic shock; N17.9 Acute kidney failure, unspecified; N13.6 Pyonephrosis; E87.20 Acidosis, unspecified; Z16.11 Resistance to penicillins; N13.8 Other obstructive and reflux uropathy; N40.1 Benign prostatic hyperplasia with lower urinary tract symptoms; B96.1 Klebsiella pneumoniae [K. pneumoniae] as the cause of diseases classified elsewhere; Z87.442 Personal history of urinary calculi
CPT/HCPCS: 36415; 36569; 36592; 74018; 76000; 76770; 76870; 80048; 80053; 81003; 81015; 83605; 83880; 85025; 85027; 87040; 87077; 87086; 87154; 87186; 96361; 96365; 96375; 99284; C1771; G0378; C2617; J0692; J0696; J1171; J1642; J1885; J2405; J2765; P9045; Q9967

== ENCOUNTER → 2024-07-27 15:15 | Outpatient (CLI) | payer MEDICARE, OTHER, SELFPAY ==
[2024-07-20 00:19] VITALS: BMI 25.9
--- NOTE | 2024-07-27 15:17 | DI.RAD.S_ITS ---
PROCEDURE: XR KUB INDICATIONS: History of urinary calculi TECHNIQUE: One view of the abdomen acquired. COMPARISON: [facility], CR, XR ABDOMEN 1V, 07/20/2024, 8:57. [facility], CT, CT ABDOMEN PELVIS WITH CONTRAST, 07/19/2024, 22:46. FINDINGS: Surgical changes and devices: Right ureteral stents x2. Bowel: Bowel gas pattern is normal. Soft tissues: Suspected stone near the distal right ureter, partially obscured. Left renal calcification measuring 1.8 cm. Additional small left kidney stones. No suspicious abdominal calcifications. Visualized solid organ contours appear normal in size. Bones: No suspicious bony lesions. IMPRESSION: 1. Suspected stone at the distal right ureter, partially obscured. Right ureteral stents x2. 2. Nonobstructing left kidney stones. Dictated by: Valdemar Scott M.D. on 07/27/2024 at 17:02 Approved by: Valdemar Scott M.D. on 07/27/2024 at 17:06
== END ==
LOC: RAD 15:16
PROVIDERS: PCP Family Medicine; Referring Provider Urology; Visit Provider Urology
DX: N20.0 Calculus of kidney (principal); N40.0 Benign prostatic hyperplasia without lower urinary tract symptoms; Z87.442 Personal history of urinary calculi; Z96.0 Presence of urogenital implants
CPT/HCPCS: 74018

== ENCOUNTER 2024-08-31 06:17 | Day surgery (SDC) | payer MEDICARE, OTHER, SELFPAY ==
[2024-07-20 00:19] VITALS: BMI 25.9
[2024-08-07 12:30] VITALS: BMI 25.5
[2024-08-31] VITALS (9 sets, daily range): BP systolic 109–138; BP diastolic 58–85; PULSE 74–93; RESP 10–14; TEMP 36.3–36.8; O2SAT 92–99; BMI 25.5
--- NOTE | 2024-08-31 06:53 | EKG_ITS ---
[address] [address] Test Date: 2024-08-31 Pat Name: Zeferino Mera Jr Department: Room: Gender: Male Senior Underwriting Assistant: Flower SPARKS : 1945 Requested By: Order Number: [id number] Reading MD: Amrit Barrera Measurements Intervals [place] Rate: 79 P: 76 NE: 200 QRS: -12 QRSD: 90 T: 56 QT: 368 QTc: 421 Interpretive Statements Normal sinus rhythm Electronically Signed On 09-02-2024 17:38:13 PDT by Amrit Barrera
[2024-08-31] MEDS: ACETAMINOPHEN 325 MG TABLET 975 MG PO (06:57)
[2024-08-31] MEDS: LACTATED RINGERS 1,000 ML 42 ML IV (07:00)
--- NOTE | 2024-08-31 07:26 | P.HP_ITS ---
History of Present Illness History of Present Illness Date Patient Seen: 08/31/24 Time Patient Seen: 07:26 Chief complaint: Right ureteral stone management Narrative: 79 y/o M returns to [facility] to discuss his urinary habits, CIC and right ureteral stone management. Briefly, he was treated with CIC for roughly 6 weeks prior to his Aquablation that was completed in early October 2023 secondary to incomplete bladder emptying. Regarding his CIC, he continues to perform this once per day right before going to bed and averages volumes of ~ 300 cc's. He now admits that his urinary stream is much stronger during the day than it used to be and does not take any medications to improve his urinary habits. Regarding his h/o nephrolithiasis, he underwent a cystoscopy w/ left ureteroscopy, laser lithotripsy and left ureteral stent placement in Dec. His procedure was notable for a very large and impacted left lower pole calyx that occupies the entire calyx. His stone was noted to be 95% Calcium oxalate. Unfortunately, he was found to have a 10mm right distal ureterolith w/ resultant upstream severe hydroureteronephrosis (two small right nephroliths as well) and an active urinary tract infection on 20 Jul 2024 that was managed acutely via a cystoscopy w/ right ureteral stent placement x2 (secondary to proximal migration of the first stent). He returns today for definitive stone management via a cystoscopy, right ureteroscopy, laser lithotripsy and right ureteral stent exchange. [facility] Medical History Retained ureteral stent Bilateral nephrolithiasis BPH loc w urin obs/LUTS Urinary retention Medicare annual wellness visit, subsequent Travel advice encounter Well adult exam Kidney stones Internal hemorrhoids Preventative health care Hyperglycemia Preventative health care BPH (benign prostatic hyperplasia) Colon polyps (~2006) Skin cancer (~2008) Surgical History S/P cystoscopy with ureteral stent placement (07/20/24) S/P cystoscopy with ureteral stent placement (01/03/24) S/P cystoscopy with ureteral stent placement (10/07/23) History of prostate surgery (10/07/23) Anesthesia History of hernia repair (~2011) Social History marital status: number of children: 2 household members: spouse Smoking Status: Never smoker alcohol intake: former substance use type: does not use caffeine: Yes Type(s) of exercise: walking and other Meds Home Medications and Allergies Home Medications Medication Instructions Recorded Confirmed Type lactobacillus combination no.9 1 cap PO DAILY 05/13/20 08/31/24 History [Adult 50 Plus Probiotic] cholecalciferol (vitamin D3) 1,000 tab PO .QD 08/15/20 08/31/24 History levofloxacin 500 mg tablet 500 mg PO DAILY #7 tabs 08/17/24 08/31/24 Rx omeprazole magnesium 20 mg 20 mg PO DAILY PRN Heartburn 08/31/24 08/31/24 History tablet,delayed release (Prilosec OTC) Allergies Allergy/AdvReac Type Severity Reaction Status Date / Time No Known Drug Allergies Allergy Verified 08/31/24 06:43 Exam Vital Signs (past 8 hours): - 08/31/24 07:01 Temperature 98.2 F Pulse Rate 93 H Respiratory Rate 14 Blood Pressure 138/85 Pulse Oximetry 95 Oxygen Delivery Method Room Air Oxygen Delivery Method Room Air Narrative Exam Narrative: GEN: Alert and oriented X3. No acute distress. Well-nourished. EYES: PERRLA, EOMI. HENT: Moist mucus membranes, no scleral icterus, normal neck ROM. RESP: Unlabored breathing, equal rise and fall of chest bilaterally, no cyanosis appreciated. CV: No peripheral edema, unremarkable heart rate. ABD: Soft, non-tender, non-distended, no palpable masses. EXT: No edema, clubbing or cyanosis. SKIN: No rashes or lesions. NEURO: No focal neurologic deficits, CN II-XII grossly intact. PSYCH: Cooperative, appropriate mood and affect. Assessment & Plan Assessment and plan (1) Ureteral calculus, right: Status: Acute Plan: 79 y/o M noted to recently be diagnosed w/ a 10 mm right distal ureterolith in the setting of an active UTI on 20 Jul 2024 that was managed acutely w/ a cystoscopy and right ureteral stent placement x2 (secondary to proximal migration of the first ureteral stent). Discussed the need for definitive stone management via a cystoscopy, right ureteroscopy, laser lithotripsy and right ureteral stent exchange. Discussed risks of the procedure to include pain, bleeding, infection, injury to urethra/bladder/ureter, inability to access the ureter requiring discussion with Interventional Radiology regarding a possible ureteral stent placement in an antegrade fashion vs a possible nephroureteral stent and/or percutaneous nephrostomy tube, urinary tract infection, inability to remove all of the stone in one setting, need for emergent open repair of bladder and/or ureter, need for multiple ureteroscopic interventions necessary to render the patient stone free. Informed consent was obtained today. Of note, he has now been treated with antibiotics for one week prior to his procedure secondary to his CIC and recent UTI. Of note, will also not leave a string on his stent and plan for a cystoscopy and stent removal in clinic. Time-Based Coding :: [TOTAL MINUTES] spent with patient and on the chart (including review of chart, obtaining history, exam, reviewing outside data, placing orders, documenting exam and treatment plan, and counseling patient) on [DATE]. [employer] Supervisor Document charge(s): Yes Charge Codes Initial inpatient/observation care: [id number]
[2024-08-31] MEDS: levoFLOXacin 500 MG/100 ML PIGGYBACK 100 MG IV (07:55)
--- NOTE | 2024-08-31 08:18 | SUR.OPER ---
Lithotomy on padded OR bed, head on pillow, Right arm secured on padded arm boards at <90 degrees abduction, left arm padded and tucked. Legs secured in padded yellow fins stirrups.
[2024-08-31] MEDS: iopamidoL 30 ML VIAL INJ (08:29)
--- NOTE | 2024-08-31 09:32 | P.OP_ITS ---
Operative Date/Time/Diagnoses Date of procedure: 08/31/24 Pre-op diagnosis: Right ureteral stone Post-op diagnosis: same Procedure & Clinicians Procedure: Cystoscopy Right retrograde ureteropyelogram Right ureteroscopy, laser lithotripsy Right ureteral stent exchange Intraoperative interpretation of fluoroscopic images, total time < 1 hour Same procedure as scheduled: Yes Indications: 79 y/o M noted to recently be diagnosed w/ a 10 mm right distal ureterolith in the setting of an active UTI on 20 Jul 2024 that was managed acutely w/ a cystoscopy and right ureteral stent placement x2 (secondary to proximal migration of the first ureteral stent). Discussed the need for definitive stone management via a cystoscopy, right ureteroscopy, laser lithotripsy and right ureteral stent exchange. Surgeon: Calvin Ramsey Click Yes if Unassisted: Yes Anesthesia Type: General Operative Notes Findings: Large right distal ureterolith, small right nephroliths x2 Closure Type: not applicable Specimen(s): other (ureteral stone) Estimated Blood Loss (mL): 2 Blood products transfused: none Procedure in detail: Patient was identified in the preoperative holding area and consent confirmed. He was then brought to the operating room where general anesthesia was induced.? He was placed in the low lithotomy position. He was then prepped and draped in the usual sterile fashion. A surgical timeout was conducted and all were in agreement. Access to the bladder was obtained via a 30 degree cystoscope.? 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 Complete cystoscopy was then performed and no concerning bladder masses or lesions were appreciated.? Bilateral ureteral orifices were easily identified and noted to be orthotopic in nature.? The previously placed right ureteral stent was then externalized and a 0.035 sensor tip ureteral guidewire was advanced through the stent and into the right renal collecting system. The semirigid ureteroscope was easily advanced into his right ureter alongside the guidewire and to the level of the stone.? A 200 micron laser fiber was then utilized to perform laser lithotripsy.? All stone fragments >1mm in size were removed via the stone basket and sent for chemical analysis.? The other right ureteral stent was then removed via the stone basket. A 12/14 Fr ureteral access sheath was then advanced over the guidewire and into the right proximal ureter and the inner obturator and guidewire were removed. The flexible ureteroscope was then advanced through the sheath and into the right renal collecting system. Complete pyeloscopy was performed and two small nephroliths were removed via the stone basket, no other stones were visible. The ureteral guidewire was then advanced through the ureteroscope and into the right renal collecting system. The ureter was then directly visualized upon removal of the ureteroscope and access sheath and noted to be stone free.? The cystoscope was then backloaded over the guidewire and advanced into the bladder. A 6Fr multi- length JJ ureteral stent without strings was then advanced over the guidewire and into the right ureter.? Upon removal of the guidewire, a good curl was noted in the right renal pelvis upon fluoroscopy and visually within the bladder.? The bladder was then drained.? Anesthesia was reversed, he was extubated in the OR and transferred to the PACU in stable condition for recovery. Complications: none Post-operative Condition: stable Disposition: PACU Plan for aftercare: Discharge home from PACU. Will return to Urology clinic in two weeks for a cystoscopy and stent removal.
[2024-09-08 15:08] LABS: Ca oxalate dihydrate 30 % (.); Ca oxalate monohydr 65 % (.); Hydroxyapatite 5 % (.); Size 3x2 mm (.)
== END 2024-08-31 11:05 | disposition home or self-care (01) ==
PROVIDERS: PCP Family Medicine; Referring Provider Family Medicine; Visit Provider Urology
PROC: 0TF68ZZ Fragmentation in Right Ureter, Via Natural or Artificial Opening Endoscopic (ICD-10-PCS; CPT 52353; principal; 2024-08-31 07:45)
DX: N20.2 Calculus of kidney with calculus of ureter (principal)
CPT/HCPCS: 52356; 74420; 82365; 93005; C2617; J1100; J1885; J1956; J2405; J2704; J3010; Q9967

== ENCOUNTER → 2024-11-10 12:38 | Outpatient (CLI) | payer MEDICARE, OTHER, SELFPAY ==
[2024-07-20 00:19] VITALS: BMI 25.9
--- NOTE | 2024-11-10 12:39 | DI.US.S_ITS ---
PROCEDURE: US RENAL COMPLETE INDICATIONS: 79 y/o M s/p right ureteroscopy, eval for hydro. TECHNIQUE: Real-time scanning was performed of the kidneys and bladder, with image documentation. COMPARISON: [facility], , RENAL COMPLETE, 07/19/2024, 17:23. FINDINGS: Kidneys: Kidneys are normal in size. Right kidney measures 11.5 cm long; left kidney measures 11.0 cm long. Right renal cortical thickness is 1.5 cm; left renal cortical thickness is 1.2 cm. Mildly heterogeneous echotexture in mid to lower pole right kidney is seen. No gross solid appearing hepatic lesion. No hydronephrosis. 1.6 cm nonobstructing stone in lower pole left kidney is seen. Questionable faint UPJ stone in right kidney measures 3 millimeter in size. 1.6 x 2.0 x 1.2 cm simple cyst is seen in upper pole left kidney. 2.4 x 2.8 x 3.1 cm simple cyst is seen in lower pole left kidney. Bladder: Pre-void bladder volume is 352 mL. Post-void residual is 325 mL. Pre-void images demonstrate no intraluminal masses or stones. On pre-void images, bilateral ureteral jets are noted with color Doppler interrogation. (Of note, ureteral jets may not be detectable in up to 25% of cases due to insufficient differences in specific gravity between ureteral and bladder urine). Miscellaneous: No free pelvic fluid. IMPRESSION: 1. Simple appearing cysts seen in left kidney as above. Nonobstructing stone in lower pole left kidney and possible nonobstructing right UPJ stone. No hydronephrosis. No definite solid appearing renal lesion. 2. No gross bladder wall abnormalities. Large amount of postvoid residual. Dictated by: Dickson Hartley M.D. on 11/10/2024 at 16:54 Approved by: Dickson Hartley M.D. on 11/10/2024 at 16:57
== END ==
LOC: US 12:39
PROVIDERS: PCP Family Medicine; Referring Provider Urology; Visit Provider Urology
DX: N20.1 Calculus of ureter (principal); N28.1 Cyst of kidney, acquired; R33.9 Retention of urine, unspecified; Z87.442 Personal history of urinary calculi
CPT/HCPCS: 76770

== ENCOUNTER → 2025-01-11 11:30 | Outpatient (CLI) | payer MEDICARE, OTHER, SELFPAY ==
[2024-07-20 00:19] VITALS: BMI 25.9
[2025-01-11 12:07] LABS: Appearance Urine UA CLOUDY; Bilirubin Urine UA NEGATIVE (NEGATIVE); Color Urine UA YELLOW; Glucose Urine UA NEGATIVE (Negative); Ketones Urine UA NEGATIVE (NEGATIVE); Leukocyte Esterase Urine UA 3+ (NEGATIVE); Nitrite Urine UA NEGATIVE (Negative); Occult Blood Urine UA 1+ (Negative); Protein Urine UA 1+ (Negative); Specific Gravity Urine UA 1.020 (1.000-1.035); Urobilinogen Urine UA 0.2 E.U./dL (0.2); pH Urine UA 6.0 (4.5-8.0)
[2025-01-11 12:15] LABS: Culture Indicated Urine Specimen Cultured
== END ==
PROVIDERS: PCP Family Medicine; Referring Provider Registered Nurse; Visit Provider Registered Nurse
DX: N20.0 Calculus of kidney (principal)
CPT/HCPCS: 81001; 87077; 87086; 87186

== ENCOUNTER → 2025-02-03 15:37 | Outpatient (CLI) | payer MEDICARE, OTHER, SELFPAY ==
[2024-07-20 00:19] VITALS: BMI 25.9
[2025-02-03 16:36] LABS: Appearance Urine UA CLEAR; Bilirubin Urine UA NEGATIVE (NEGATIVE); Color Urine UA YELLOW; Glucose Urine UA NEGATIVE (Negative); Ketones Urine UA NEGATIVE (NEGATIVE); Leukocyte Esterase Urine UA 1+ (NEGATIVE); Nitrite Urine UA POSITIVE (Negative); Occult Blood Urine UA 3+ (Negative); Protein Urine UA 2+ (Negative); Specific Gravity Urine UA 1.020 (1.000-1.035); Urobilinogen Urine UA 0.2 E.U./dL (0.2); pH Urine UA 6.0 (4.5-8.0)
[2025-02-03 16:47] LABS: Culture Indicated Urine Specimen Cultured
== END ==
PROVIDERS: PCP Family Medicine; Referring Provider Urology; Visit Provider Urology
DX: N20.0 Calculus of kidney (principal)
CPT/HCPCS: 81001; 87077; 87086; 87186

== ENCOUNTER → 2025-02-08 13:53 | Outpatient (CLI) | payer MEDICARE, OTHER, SELFPAY ==
[2024-07-20 00:19] VITALS: BMI 25.9
--- NOTE | 2025-02-08 13:55 | DI.RAD.S_ITS ---
PROCEDURE: XR ABDOMEN MIN 2V INDICATIONS: NEPHROLITHIASIS TECHNIQUE: 2 views of the abdomen were acquired. COMPARISON: [facility], CR, XR ABDOMEN 1V, 07/20/2024, 8:57. FINDINGS: Surgical changes and devices: Left nephroureteral double-pigtail stent. Bowel: No pneumoperitoneum. The bowel gas pattern is normal. Soft tissues: Coarse and punctate left mid and lower pole intrarenal calculi. Lower pole calcification measures 1.0 cm. No visible right-sided intrarenal or ureteral calcifications. Organ shadows are within normal limits. Bones: No suspicious bony abnormalities. Mild, bilateral and symmetric hip joint degeneration. IMPRESSION: Left intrarenal calculi as described. Left nephroureteral stent in expected position. Dictated by: Jocelyn Bruno M.D. on 02/08/2025 at 18:33 Approved by: Jocelyn Bruno M.D. on 02/08/2025 at 18:35
== END ==
PROVIDERS: PCP Family Medicine; Referring Provider Physician Assistant Surgical; Visit Provider Physician Assistant Surgical
DX: N20.0 Calculus of kidney (principal); M16.0 Bilateral primary osteoarthritis of hip; Z96.0 Presence of urogenital implants
CPT/HCPCS: 74019

== ENCOUNTER → 2025-02-22 14:11 | Outpatient (CLI) | payer MEDICARE, OTHER, SELFPAY ==
[2024-07-20 00:19] VITALS: BMI 25.9
--- NOTE | 2025-02-22 14:17 | DI.RAD.S_ITS ---
PROCEDURE: XR ABDOMEN 1V INDICATIONS: KIDNEY STONES TECHNIQUE: One view of the abdomen acquired. COMPARISON: [facility], CR, XR ABDOMEN MIN 2V, 02/08/2025, 13:54. [facility], CR, XR ABDOMEN 1V, 07/20/2024, 8:57. FINDINGS: Surgical changes and devices: Left ureteral stent in place. Bowel: Bowel gas pattern is normal. Prominent stool burden. Soft tissues: Calcifications projecting over the left inferior renal shadow measuring up to 7 mm. . Visualized solid organ contours appear normal in size. Bones: No suspicious bony lesions. IMPRESSION: Left ureteral stent in place. Calcifications projecting over the left inferior renal shadow. Dictated by: Derrell De Santiago M.D. on 02/22/2025 at 16:49 Approved by: Derrell De Santiago M.D. on 02/22/2025 at 16:50
== END ==
PROVIDERS: PCP Family Medicine; Referring Provider Physician Assistant Surgical; Visit Provider Physician Assistant Surgical
DX: N20.0 Calculus of kidney (principal); Z96.0 Presence of urogenital implants
CPT/HCPCS: 74018

== ENCOUNTER → 2025-03-01 11:47 | Outpatient (CLI) | payer MEDICARE, OTHER, SELFPAY ==
[2024-07-20 00:19] VITALS: BMI 25.9
== END ==
PROVIDERS: PCP Family Medicine; Visit Provider Urology
DX: N40.1 Benign prostatic hyperplasia with lower urinary tract symptoms (principal)
CPT/HCPCS: 87077; 87086